=== PATIENT | female | born 1940 | race Caucasian/White ===

== ENCOUNTER → 2017-09-07 11:42 | Outpatient (CLI) | payer OTHER, SELFPAY ==
--- NOTE | 2017-09-07 | DI.MG.S_ITS ---
BILATERAL DIGITAL SCREENING MAMMOGRAM 3D/2D WITH CAD: 09/07/2017 CLINICAL: Routine screening. Comparison is made to exams dated: 12/30/2015 mammogram, 12/21/2014 mammogram - [facility], and 10/02/2013 mammogram - [facility]. There are scattered fibroglandular elements in both breasts. Current study was also evaluated with a Computer Aided Detection (CAD) system. No significant masses, calcifications, or other findings are seen in either breast. There has been no significant interval change. IMPRESSION: NEGATIVE There is no mammographic evidence of malignancy. A 1 year screening mammogram is recommended. This exam was interpreted at Station ID: [id number]. NOTE: For mammograms, a report in lay terms will be sent to the patient. Approximately 15% of breast malignancies will not be visualized mammographically. In the management of a palpable breast mass, a negative mammogram must not discourage biopsy of a clinically suspicious lesion. Electronically Signed By: Ernesto frank/cuauhtemoc:09/08/2017 09:11:23 letter sent: Normal Exam ACR BI-RADS Category 1: Negative 3341F
== END ==
PROVIDERS: PCP Family Medicine; Visit Provider Family Medicine
DX: Z12.31 Encounter for screening mammogram for malignant neoplasm of breast (principal)
CPT/HCPCS: 77063; 77067

== ENCOUNTER 2017-10-12 08:05 | Day surgery (SDC) | payer OTHER, SELFPAY ==
[2017-10-12] MEDS: PROPARACAINE 0.5% OPHTH SOL 2 DROPS EYE-OP (08:59)
[2017-10-12 09:01] VITALS: BMI 33.4
[2017-10-12] MEDS: CATARACT EYE COMPOUND (10 DROPS/SYRINGE) 3 DROPS EYE-OP (09:04)
[2017-10-12 09:15] VITALS: BP 174/78; PULSE 58; RESP 16; TEMP 36.7; O2SAT 95
--- NOTE | 2017-10-12 09:41 | P.OP.PRE_ITS ---
Pre-operative Note Interval Note Changes: No
--- NOTE | 2017-10-12 09:41 | PM.PREOP ---
Pre-operative Note Interval Note Changes: No
--- NOTE | 2017-10-12 09:42 | P.OP_ITS ---
Operative Date/Time/Diagnoses Pre-op diagnosis: Cataract Right eye Post-op diagnosis: same Procedure & Clinicians Procedure: Cataract Surgery Same procedure as scheduled: Yes Surgeon: Maurizio Wing Anesthesia Type: MAC +/- and Sedation Operative Notes Procedure in detail: Patient brought to the operating suite. Tetracaine drops placed in the right eye. Patient was prepped and draped in sterile manner. Wire lid speculum was placed in the eye. Betadine drops were placed on the eye. This was irrigated. Lidocaine jelly was placed on the eye. A paracentesis port was created with a side-port blade. 0.1 mL 1% preservative free lidocaine was injected into the anterior chamber. The anterior chamber was deepened with viscoelastic. 2.6 mm keratome was used to create a temporal clear corneal incision. Cystotome and Utrata forceps were used to create continuous tear capsulorrhexis. Balanced salt solution was used to hydro dissect the nucleus. The phacoemulsification handpiece was inserted and the nucleus was removed using the stop and chop technique. The irrigation aspiration handpiece was inserted and the remaining cortex was removed. Anterior chamber was deepened with viscoelastic. An Valdivia ZCB00 intraocular lens with a power of 29.5 was injected into the capsular bag. Irrigation aspiration handpiece was inserted and the remaining viscoelastic was removed. Incision was hydrated with balanced salt solution and found to be leak free with pressure with Weck- Angelica sponges. 0.1 mL Vigamox injected anterior chamber. 0.3 mL Kenalog 10 mg was injected subconjunctivally. Lid speculum was removed. The patient left the operating room in excellent condition. Complications: none Condition: stable Disposition: same day surgery
--- NOTE | 2017-10-12 09:44 | SUR.OPER ---
Supine on eye stretcher, head on extension cradle secured with tape. Arms tucked at sides with blanket. Pillow under knees.
[2017-10-12] MEDS: BALANCED SALT IRRIG SOLN NO.2 500 ML, EPINEPHrine 1 MG IRR (09:55)
[2017-10-12] MEDS: LIDOCAINE 1% 10 ML INJ INJ (09:55)
[2017-10-12] MEDS: TRIAMCINOLONE 50 MG/5 ML VIAL INJ (09:56)
[2017-10-12] MEDS: MOXIFLOXACIN OPHTH DROPS 3 ML BOTTLE 2 DROPS INJ (09:56)
[2017-10-12] MEDS: TETRACAINE 0.5% OPHTH DROPS 15 ML 2 DROPS EYE-RIGHT (09:56)
[2017-10-12] MEDS: LIDOCAINE JELLY 2% 5 ML 1 APPLIC TOP (09:56)
[2017-10-12] MEDS: CHONDROIDTIN/SOD HYALURONATE 1.05 ML SYRINGE INTRAOCULA (09:57)
[2017-10-12 10:12] VITALS: BP 141/63; PULSE 57; RESP 15; TEMP 36.5; O2SAT 97
== END 2017-10-12 10:27 | disposition home or self-care (01) ==
PROVIDERS: PCP Family Medicine; Visit Provider Ophthalmology
DX: H25.11 Age-related nuclear cataract, right eye (principal); I10 Essential (primary) hypertension; G47.33 Obstructive sleep apnea (adult) (pediatric)
CPT/HCPCS: J0171; J2250; J3010; J3301

== ENCOUNTER 2017-10-26 06:55 | Day surgery (SDC) | payer OTHER, SELFPAY ==
[2017-10-26] MEDS: PROPARACAINE 0.5% OPHTH SOL 2 DROPS EYE-OP (07:59)
[2017-10-26] MEDS: CATARACT EYE COMPOUND (10 DROPS/SYRINGE) 3 DROPS EYE-OP (08:00)
[2017-10-26 08:03] VITALS: BP 170/67; PULSE 57; RESP 18; TEMP 36.6; O2SAT 99; BMI 33.1
--- NOTE | 2017-10-26 09:02 | P.OP_ITS ---
Operative Date/Time/Diagnoses Pre-op diagnosis: Cataract Left eye Post-op diagnosis: same Procedure & Clinicians Surgeon: Maurizio Wing Anesthesia Type: MAC +/- and Sedation Operative Notes Procedure in detail: Patient brought to the operating suite. Tetracaine drops placed in the left eye. Patient was prepped and draped in sterile manner. Wire lid speculum was placed in the eye. Betadine drops were placed on the eye. This was irrigated. Lidocaine jelly was placed on the eye. A paracentesis port was created with a side-port blade. 0.1 mL 1% preservative free lidocaine was injected into the anterior chamber. The anterior chamber was deepened with viscoelastic. 2.6 mm keratome was used to create a temporal clear corneal incision. Cystotome and Utrata forceps were used to create continuous tear capsulorrhexis. Balanced salt solution was used to hydro dissect the nucleus. The phacoemulsification handpiece was inserted and the nucleus was removed using the stop and chop technique. The irrigation aspiration handpiece was inserted and the remaining cortex was removed. Anterior chamber was deepened with viscoelastic. An Valdivia ZCB00 intraocular lens with a power of 24.0 was injected into the capsular bag. Irrigation aspiration handpiece was inserted and the remaining viscoelastic was removed. Incision was hydrated with balanced salt solution and found to be leak free with pressure with Weck- Angelica sponges. 0.1 mL Vigamox injected anterior chamber. 0.3 mL Kenalog 10 mg was injected subconjunctivally. Lid speculum was removed. The patient left the operating room in excellent condition. Complications: none Condition: stable Disposition: same day surgery
--- NOTE | 2017-10-26 09:02 | P.OP.PRE_ITS ---
Pre-operative Note Interval Note Changes: No
--- NOTE | 2017-10-26 09:02 | PM.PREOP ---
Pre-operative Note Interval Note Changes: No
[2017-10-26] MEDS: CHONDROIDTIN/SOD HYALURONATE 1.05 ML SYRINGE INTRAOCULA (09:15)
[2017-10-26] MEDS: PHENYLEPHRINE/LIDOCAINE VIAL (OR) 0.2 ML EYE-OP (09:16)
[2017-10-26] MEDS: TRIAMCINOLONE 50 MG/5 ML VIAL INJ (09:16)
[2017-10-26] MEDS: TETRACAINE 0.5% OPHTH DROPS 15 ML 2 DROPS EYE-LEFT (09:16)
[2017-10-26] MEDS: MOXIFLOXACIN OPHTH DROPS 3 ML BOTTLE 2 DROPS INJ (09:16)
[2017-10-26] MEDS: LIDOCAINE JELLY 2% 5 ML 1 APPLIC TOP (09:16)
[2017-10-26] MEDS: BALANCED SALT IRRIG SOLN NO.2 500 ML, EPINEPHrine 1 MG IRR (09:17)
[2017-10-26 09:36] VITALS: BP 148/61; PULSE 59; RESP 15; TEMP 36.6; O2SAT 99
--- NOTE | 2017-10-26 09:46 | SUR.PHASEII ---
Assumed care as assigned, patient had been received post-op by another RN. Patient comfortable, tolerating fluids, family at chairside. IV dc'd, clothes given.
== END 2017-10-26 09:52 | disposition home or self-care (01) ==
PROVIDERS: PCP Family Medicine; Visit Provider Ophthalmology
DX: H25.12 Age-related nuclear cataract, left eye (principal); I10 Essential (primary) hypertension; G47.33 Obstructive sleep apnea (adult) (pediatric)
CPT/HCPCS: J0171; J2250; J3010; J3301

== ENCOUNTER → 2017-11-25 12:27 | Outpatient (CLI) | payer OTHER, SELFPAY ==
[2017-11-25 13:01] LABS: Appearance Urine UA CLEAR; Bilirubin Urine UA NEGATIVE (NEGATIVE); Color Urine UA YELLOW; Glucose Urine UA NEGATIVE (Normal); Ketones Urine UA NEGATIVE (NEGATIVE); Leukocyte Esterase Urine UA TRACE (NEGATIVE); Nitrite Urine UA Negative (Negative); Occult Blood Urine UA NEGATIVE (Negative); Protein Urine UA NEGATIVE (Negative); Urobilinogen Urine UA 0.2 E.U./dL (0.2)
[2017-11-25 13:06] LABS: RBC Urine None Seen (0-5/HPF)
[2017-11-25 13:12] LABS: Alanine Aminotransferase 31 IU/L (9-52); Albumin 4.7 g/dL (3.5-5.0); Albumin Globulin Ratio 1.4 (1.0-2.8); Alkaline Phosphatase 64 U/L (38-126); Aspartate Aminotransferase 27 IU/L (14-36); Bilirubin Total 0.8 mg/dL (0.2-1.3); Blood Urea Nitrogen 16 mg/dL (7-17); Carbon Dioxide 32 mmol/L (22-32); Chloride 100 mmol/L (98-107); Cholesterol 274 mg/dL (140-199); Estimated Glomerular Filt Rate > 60.0 mL/min (>60); Globulin 3.4 g/dL (1.7-4.1); Glucose 112 mg/dL (80-110); HDL Cholesterol 65 mg/dL (40-60); HEMOLYSIS < 15 (0-50); LDL Cholesterol Calculated 176 mg/dL (<100); Potassium 3.8 mmol/L (3.4-5.1); Sodium 144 mmol/L (137-145); Total Protein 8.1 g/dL (6.3-8.2); Triglycerides 163 mg/dL (35-150)
[2017-11-25 13:16] LABS: Bacteria Urine Moderate (10-30); Culture Indicated Urine Specimen Cultured; Squamous Epithelial Cell Urine 1-5 /HPF; Transitional Epi Cells Urine 0-1/HPF (0-5/HPF); WBC Urine 0-1/HPF (0-5/HPF)
[2017-11-25 13:43] LABS: Thyroid Stimulating Hormone 2.56 uIU/mL (0.47-4.68)
== END ==
PROVIDERS: PCP Family Medicine; Visit Provider Family Medicine
DX: E78.2 Mixed hyperlipidemia (principal); I10 Essential (primary) hypertension
CPT/HCPCS: 36415; 80053; 80061; 81003; 81015; 84443; 87086

== ENCOUNTER → 2018-06-01 09:44 | Outpatient (CLI) | payer OTHER, SELFPAY ==
[2018-06-01 11:37] LABS: Alanine Aminotransferase 43 IU/L (9-52); Albumin 4.7 g/dL (3.5-5.0); Albumin Globulin Ratio 1.5 (1.0-2.8); Alkaline Phosphatase 81 U/L (38-126); Aspartate Aminotransferase 40 IU/L (14-36); BUN Creatinine Ratio 21.3 (6-22); Bilirubin Total 0.6 mg/dL (0.2-1.3); Blood Urea Nitrogen 17 mg/dL (7-17); Calcium 9.8 mg/dL (8.4-10.2); Carbon Dioxide 28 mmol/L (22-32); Chloride 98 mmol/L (98-107); Cholesterol 266 mg/dL (140-199); Estimated Glomerular Filt Rate > 60.0 mL/min (>60); Globulin 3.1 g/dL (1.7-4.1); Glucose 115 mg/dL (80-110); HDL Cholesterol 53 mg/dL (40-60); HEMOLYSIS < 15 (0-50); LDL Cholesterol Calculated 177 mg/dL (<100); Sodium 137 mmol/L (137-145); Total Protein 7.8 g/dL (6.3-8.2); Triglycerides 182 mg/dL (35-150)
== END ==
PROVIDERS: PCP Family Medicine; Visit Provider Family Medicine
DX: E78.2 Mixed hyperlipidemia (principal); I10 Essential (primary) hypertension
CPT/HCPCS: 36415; 80053; 80061

== ENCOUNTER → 2018-06-06 16:16 | Outpatient (CLI) | payer OTHER, SELFPAY ==
--- NOTE | 2018-06-06 16:18 | DI.RAD.S_ITS ---
PROCEDURE: XR SHOULDER LT MIN 2V INDICATIONS: left shoulder pain TECHNIQUE: 3 views of the shoulder were acquired. COMPARISON: [facility], , SHOULDER MINIMUM 2VIEW RIGHT, 11/30/2014, 11:56. FINDINGS: Bones: No fractures or dislocations. No suspicious bony lesions. Visualized ribs appear intact. Soft tissues: No suspicious soft tissue calcifications. 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 Dictated by: Barry Ghosh M.D. on 06/06/2018 at 17:27 Approved by: Barry Gohsh M.D. on 06/06/2018 at 17:28
== END ==
PROVIDERS: PCP Family Medicine; Visit Provider Family Medicine
DX: M25.512 Pain in left shoulder (principal); M19.012 Primary osteoarthritis, left shoulder
CPT/HCPCS: 73030

== ENCOUNTER → 2018-09-22 11:58 | Outpatient (CLI) | payer OTHER, SELFPAY ==
--- NOTE | 2018-09-22 | DI.MG.S_ITS ---
BILATERAL DIGITAL SCREENING MAMMOGRAM 3D/2D WITH CAD: 09/22/2018 CLINICAL: Routine screening. Comparison is made to exams dated: 09/07/2017 mammogram, 12/30/2015 mammogram, and 12/21/2014 mammogram - [facility]. There are scattered fibroglandular elements in both breasts. Current study was also evaluated with a Computer Aided Detection (CAD) system. No significant masses, calcifications, or other findings are seen in either breast. There has been no significant interval change. IMPRESSION: NEGATIVE There is no mammographic evidence of malignancy. A 1 year screening mammogram is recommended. This exam was interpreted at Station ID: [id number]. NOTE: For mammograms, a report in lay terms will be sent to the patient. Approximately 15% of breast malignancies will not be visualized mammographically. In the management of a palpable breast mass, a negative mammogram must not discourage biopsy of a clinically suspicious lesion. Electronically Signed By: Marino fall/cuauhtemoc:09/22/2018 12:38:25 letter sent: Normal Exam ACR BI-RADS Category 1: Negative 3341F
== END ==
PROVIDERS: PCP Family Medicine; Visit Provider Family Medicine
DX: Z12.31 Encounter for screening mammogram for malignant neoplasm of breast (principal)
CPT/HCPCS: 77063; 77067

== ENCOUNTER → 2018-11-01 10:34 | Outpatient (CLI) | payer OTHER, SELFPAY ==
[2018-11-01 11:49] LABS: Add Manual Diff / Slide Review NO; Basophils Absolute Auto 0 /uL (0-100); Basophils Percent Auto 0.8 % (0-2); Eosinophils Absolute Auto 100 /uL (0-450); Eosinophils Percent Auto 1.2 % (2-4); Hematocrit 40.1 % (36-46); Lymphocytes Absolute Auto 1600 /uL (1100-4500); Lymphocytes Percent Auto 32.5 % (25-40); Mean Corpuscular HGB Conc 34.9 % (30-36); Mean Corpuscular Volume 88.8 fL (80-100); Monocytes Absolute Auto 500 /uL (0-900); Monocytes Percent Auto 10.3 % (3-14); Neutrophils Absolute Auto 2700 /uL (1500-7000); Neutrophils Percent Auto 55.2 % (50-75); Platelet Count 339 X10^3/uL (150-400); Red Blood Cell Count 4.52 X10^6/uL (4.0-5.2); Red Cell Distribution Width 12.5 % (11.6-14.8)
[2018-11-01 12:02] LABS: Alanine Aminotransferase 38 IU/L (9-52); Albumin 4.6 g/dL (3.5-5.0); Albumin Globulin Ratio 1.3 (1.0-2.8); Alkaline Phosphatase 80 U/L (38-126); Aspartate Aminotransferase 46 IU/L (14-36); BUN Creatinine Ratio 17.5 (6-22); Bilirubin Total 0.8 mg/dL (0.2-1.3); Blood Urea Nitrogen 14 mg/dL (7-17); Calcium 9.7 mg/dL (8.4-10.2); Carbon Dioxide 31 mmol/L (22-32); Chloride 96 mmol/L (98-107); Cholesterol 260 mg/dL (140-199); Estimated Glomerular Filt Rate > 60.0 mL/min (>60); Globulin 3.5 g/dL (1.7-4.1); Glucose 120 mg/dL (80-110); HDL Cholesterol 48 mg/dL (40-60); HEMOLYSIS < 15 (0-50); LDL Cholesterol Calculated 177 mg/dL (<100); Potassium 3.6 mmol/L (3.4-5.1); Sodium 138 mmol/L (137-145); Total Protein 8.1 g/dL (6.3-8.2); Triglycerides 177 mg/dL (35-150)
[2018-11-01 12:16] LABS: Microalbumi Creatinin Ratio Ur 6.2 ug/mg CR (<30); Microalbumin Urine Random < 0.6 mg/dL (0-1.6)
[2018-11-02 13:55] LABS: Hemoglobin A1C% w Est Avg Glu 5.8 % (4.0-6.0)
== END ==
PROVIDERS: PCP Family Medicine; Visit Provider Family Medicine
DX: E78.2 Mixed hyperlipidemia (principal); I10 Essential (primary) hypertension; M47.816 Spondylosis without myelopathy or radiculopathy, lumbar region; R13.10 Dysphagia, unspecified; Z13.1 Encounter for screening for diabetes mellitus
CPT/HCPCS: 36415; 80053; 80061; 82043; 82570; 83036; 85025

== ENCOUNTER → 2018-11-07 15:15 | Outpatient (CLI) | payer OTHER, SELFPAY ==
[2018-11-07 16:43] LABS: Hemoglobin A1C% w Est Avg Glu 5.7 % (4.0-6.0)
[2018-11-10 08:59] LABS: Hepatitis A Antibody IgM NONREACTIVE; Hepatitis Acute Panel Interp 0.03; Hepatitis B Core Antibody IgM NONREACTIVE; Hepatitis B Surface Antigen NONREACTIVE; Hepatitis C Antibody NONREACTIVE
== END ==
PROVIDERS: PCP Family Medicine; Visit Provider Family Medicine
DX: R74.8 Abnormal levels of other serum enzymes (principal); R73.9 Hyperglycemia, unspecified
CPT/HCPCS: 36415; 80074; 83036

== ENCOUNTER → 2018-11-10 12:15 | Outpatient (CLI) | payer OTHER, SELFPAY ==
--- NOTE | 2018-11-10 | DI.US.S_ITS ---
PROCEDURE: US ABDOMEN COMPLETE INDICATIONS: ELEVATED LIVER ENZYMES TECHNIQUE: Real-time scanning was performed of the abdominal and retroperitoneal organs, with image documentation. COMPARISON: [facility], CT, KIDNEY/ URETER/BLADDER, 09/22/2016, 19:53. FINDINGS: Liver: Liver is diffusely increased in echogenicity. No focal hepatic abnormalities identified. Normal hepatic size. Gallbladder: No gallstones identified. Normal gallbladder wall. No pericholecystic fluid. Negative sonographic Michael sign. Biliary ducts: Intrahepatic bile ducts are non-dilated. Extrahepatic bile duct caliber measures 4.0 mm. Normal is 6-7 mm or less in diameter, or 10 mm or less post-cholecystectomy. Pancreas: Visualized portions of the pancreas are sonographically normal. Spleen: Spleen is normal in size and homogeneous in echotexture. Kidneys: Kidneys are normal in size and echotexture. Right kidney measures a 9.5 cm long; left kidney measures 8.7 cm long. No hydronephrosis or nephrolithiasis. No solid masses. Aorta: Visualized aorta is normal in caliber at less than 3 cm. Iliacs: Proximal common iliac arteries are normal in caliber at less than 2.5 cm. IVC: Intrahepatic inferior vena cava is patent. Miscellaneous: No free abdominal fluid. IMPRESSION: Increased hepatic echogenicity noted possibly related to hepatic steatosis but other sources of hepatocellular disease cannot be excluded. Recommend clinical correlation. Dictated by: Jaguar OLIVEROS Interpreted: Eren Rodriguez MD on 11/10/2018 at 13:51 Approved by: Eren Rodriguez M.D. on 11/10/2018 at 17:30
== END ==
PROVIDERS: PCP Family Medicine; Visit Provider Family Medicine
DX: R74.8 Abnormal levels of other serum enzymes (principal)
CPT/HCPCS: 76700

== ENCOUNTER → 2018-12-20 12:39 | Outpatient (CLI) | payer OTHER, SELFPAY | PROVIDERS: PCP Family Medicine; Visit Provider Nurse Practitioner | DX: R30.0 Dysuria (principal) | CPT/HCPCS: 87077; 87086; 87186 ==

== ENCOUNTER → 2019-05-04 10:50 | Outpatient (CLI) | payer MEDICARE, SELFPAY ==
[2019-05-04 12:13] LABS: Add Manual Diff / Slide Review NO; Basophils Absolute Auto 0 /uL (0-100); Basophils Percent Auto 0.7 % (0-2); Eosinophils Absolute Auto 100 /uL (0-450); Eosinophils Percent Auto 1.7 % (2-4); Hematocrit 40.2 % (36-46); Hemoglobin 13.6 g/dL (12.0-16.0); Lymphocytes Absolute Auto 1500 /uL (1100-4500); Lymphocytes Percent Auto 26.3 % (25-40); Mean Corpuscular HGB Conc 33.9 % (30-36); Mean Corpuscular Hemoglobin 30.7 PG (26-34); Mean Corpuscular Volume 90.8 fL (80-100); Monocytes Absolute Auto 500 /uL (0-900); Monocytes Percent Auto 8.2 % (3-14); Neutrophils Absolute Auto 3700 /uL (1500-7000); Neutrophils Percent Auto 63.1 % (50-75); Platelet Count 337 X10^3/uL (150-400); Red Blood Cell Count 4.43 X10^6/uL (4.0-5.2); Red Cell Distribution Width 12.6 % (11.6-14.8); White Blood Cell Count 5.8 X10^3/uL (4.5-11.0)
[2019-05-04 12:14] LABS: Appearance Urine UA CLEAR; Bilirubin Urine UA NEGATIVE (NEGATIVE); Color Urine UA YELLOW; Glucose Urine UA NEGATIVE (Negative); Ketones Urine UA NEGATIVE (NEGATIVE); Leukocyte Esterase Urine UA TRACE (NEGATIVE); Nitrite Urine UA NEGATIVE (Negative); Occult Blood Urine UA NEGATIVE (Negative); Protein Urine UA NEGATIVE (Negative); Specific Gravity Urine UA 1.015 (1.000-1.035); Urobilinogen Urine UA 0.2 E.U./dL (0.2)
[2019-05-04 12:22] LABS: RBC Urine None Seen (0-5/HPF)
[2019-05-04 12:24] LABS: Hemoglobin A1C% w Est Avg Glu 5.6 % (4.0-6.0)
[2019-05-04 12:33] LABS: Bacteria Urine Few (2-10); Culture Indicated Urine Specimen Cultured; Squamous Epithelial Cell Urine 0-1 /HPF (0-5/HPF); WBC Urine 0-1/HPF (0-5/HPF)
[2019-05-04 13:11] LABS: Alanine Aminotransferase 16 IU/L (<35); Albumin 4.7 g/dL (3.5-5.0); Albumin Globulin Ratio 1.4 (1.0-2.8); Alkaline Phosphatase 81 U/L (38-126); Aspartate Aminotransferase 24 IU/L (14-36); BUN Creatinine Ratio 21.9 (6-22); Bilirubin Total 0.6 mg/dL (0.2-1.3); Blood Urea Nitrogen 16 mg/dL (7-17); Calcium 9.9 mg/dL (8.4-10.2); Carbon Dioxide 28 mmol/L (22-32); Chloride 101 mmol/L (98-107); Cholesterol 251 mg/dL (140-199); Estimated Glomerular Filt Rate > 60.0 mL/min (>60); Globulin 3.3 g/dL (1.7-4.1); Glucose 107 mg/dL (80-110); HDL Cholesterol 68 mg/dL (40-60); HEMOLYSIS < 15 (0-50); LDL Cholesterol Calculated 163 mg/dL (<100); Potassium 4.1 mmol/L (3.4-5.1); Sodium 139 mmol/L (137-145); Triglycerides 98 mg/dL (35-150)
[2019-05-04 13:45] LABS: Thyroid Stimulating Hormone 3.47 uIU/mL (0.47-4.68)
== END ==
PROVIDERS: PCP Family Medicine; Referring Provider Family Medicine; Visit Provider Family Medicine
DX: E66.9 Obesity, unspecified (principal); E78.2 Mixed hyperlipidemia; I10 Essential (primary) hypertension; R73.9 Hyperglycemia, unspecified
CPT/HCPCS: 36415; 80053; 80061; 81003; 81015; 83036; 84443; 85025; 87077; 87086

== ENCOUNTER → 2019-09-25 16:12 | Outpatient (CLI) | payer MEDICARE, SELFPAY ==
--- NOTE | 2019-09-25 | DI.MG.S_ITS ---
BILATERAL DIGITAL SCREENING MAMMOGRAM 3D/2D WITH CAD: 09/25/2019 CLINICAL: Routine screening. Comparison is made to exams dated: 09/22/2018 mammogram, 09/07/2017 mammogram, 12/30/2015 mammogram - [facility], and 10/02/2013 mammogram - [facility]. There are scattered fibroglandular elements in both breasts. Current study was also evaluated with a Computer Aided Detection (CAD) system. No significant masses, calcifications, or other findings are seen in either breast. There has been no significant interval change. IMPRESSION: NEGATIVE There is no mammographic evidence of malignancy. A 1 year screening mammogram is recommended. This exam was interpreted at Station ID: [id number]. NOTE: For mammograms, a report in lay terms will be sent to the patient. Approximately 15% of breast malignancies will not be visualized mammographically. In the management of a palpable breast mass, a negative mammogram must not discourage biopsy of a clinically suspicious lesion. Electronically Signed By: Marino fall/cuauhtemoc:09/25/2019 17:30:11 letter sent: Normal Exam ACR BI-RADS Category 1: Negative 3341F
== END ==
PROVIDERS: PCP Family Medicine; Referring Provider Family Medicine; Visit Provider Family Medicine
DX: Z12.31 Encounter for screening mammogram for malignant neoplasm of breast (principal)
CPT/HCPCS: 77063; 77067

== ENCOUNTER → 2019-10-16 16:17 | Outpatient (CLI) | payer MEDICARE, SELFPAY ==
--- NOTE | 2019-10-16 16:20 | DI.RAD.S_ITS ---
PROCEDURE: XR SINUS MIN 3V INDICATIONS: L frontal sinus pain TECHNIQUE: 3 views of the sinuses were acquired. COMPARISON: None. FINDINGS: Sinuses: The visualized sinuses demonstrate no air-fluid levels or mucosal thickening. The visualized mastoids also appear clear. Bones: No suspicious bony lesions. Nasal septum is midline. IMPRESSION: No trauma found. No air-fluid level or soft tissue thickening. Dictated by: Barry Ghosh M.D. on 10/16/2019 at 17:01 Approved by: Barry Ghosh M.D. on 10/16/2019 at 17:01
== END ==
PROVIDERS: PCP Family Medicine; Referring Provider Registered Nurse Diabetes Educator; Visit Provider Registered Nurse Diabetes Educator
DX: J34.89 Other specified disorders of nose and nasal sinuses (principal)
CPT/HCPCS: 70220

== ENCOUNTER → 2019-10-26 09:50 | Outpatient (CLI) | payer MEDICARE, SELFPAY ==
--- NOTE | 2019-10-26 09:51 | DI.US.S_ITS ---
PROCEDURE: US SOFT TISSUE HEAD AND NECK INDICATIONS: LEFT BROW LUMP TECHNIQUE: Real-time scanning was performed of the neck region of interest, with image documentation. COMPARISON: None. FINDINGS: In the area of the palpable abnormality, no sonographic mass or discrete fluid collection is seen. IMPRESSION: No discrete ultrasound correlate to the palpable abnormality. Recommend clinical management Dictated by: Eren Rodriguez M.D. on 10/26/2019 at 12:26 Approved by: Eren Rodriguez M.D. on 10/26/2019 at 12:28
== END ==
PROVIDERS: PCP Family Medicine; Referring Provider Registered Nurse Diabetes Educator; Visit Provider Registered Nurse Diabetes Educator
DX: R22.0 Localized swelling, mass and lump, head (principal)
CPT/HCPCS: 76536

== ENCOUNTER → 2019-11-22 09:53 | Outpatient (CLI) | payer MEDICARE, SELFPAY ==
[2019-11-22 11:04] LABS: Add Manual Diff / Slide Review NO; Basophils Absolute Auto 0 /uL (0-100); Basophils Percent Auto 0.6 % (0-2); Eosinophils Absolute Auto 100 /uL (0-450); Eosinophils Percent Auto 2.2 % (2-4); Hematocrit 39.4 % (36-46); Hemoglobin 13.7 g/dL (12.0-16.0); Lymphocytes Absolute Auto 1600 /uL (1100-4500); Lymphocytes Percent Auto 28.1 % (25-40); Mean Corpuscular HGB Conc 34.7 % (30-36); Mean Corpuscular Hemoglobin 31.2 PG (26-34); Monocytes Absolute Auto 600 /uL (0-900); Monocytes Percent Auto 9.7 % (3-14); Neutrophils Absolute Auto 3500 /uL (1500-7000); Neutrophils Percent Auto 59.4 % (50-75); Platelet Count 313 X10^3/uL (150-400); Red Blood Cell Count 4.37 X10^6/uL (4.0-5.2); Red Cell Distribution Width 12.3 % (11.6-14.8); White Blood Cell Count 5.8 X10^3/uL (4.5-11.0)
[2019-11-22 11:18] LABS: Alanine Aminotransferase 21 IU/L (<35); Albumin 4.5 g/dL (3.5-5.0); Albumin Globulin Ratio 1.3 (1.0-2.8); Alkaline Phosphatase 79 U/L (38-126); Aspartate Aminotransferase 26 IU/L (14-36); BUN Creatinine Ratio 23.1 (6-22); Bilirubin Total 0.7 mg/dL (0.2-1.3); Blood Urea Nitrogen 18 mg/dL (7-17); Calcium 9.6 mg/dL (8.4-10.2); Carbon Dioxide 32 mmol/L (22-32); Chloride 99 mmol/L (98-107); Cholesterol 264 mg/dL (140-199); Estimated Glomerular Filt Rate > 60.0 mL/min (>60); Globulin 3.6 g/dL (1.7-4.1); Glucose 114 mg/dL (80-110); HDL Cholesterol 57 mg/dL (40-60); HEMOLYSIS < 15 (0-50); LDL Cholesterol Calculated 174 mg/dL (<100); Potassium 4.1 mmol/L (3.4-5.1); Sodium 138 mmol/L (137-145); Total Protein 8.1 g/dL (6.3-8.2); Triglycerides 166 mg/dL (35-150)
[2019-11-22 11:58] LABS: Free T3, Triiodothyronine Free 4.05 pg/mL (2.77-5.27); Free T4, Direct Thyroxine 0.99 ng/dL (0.78-2.19)
[2019-11-22 12:12] LABS: Thyroid Stimulating Hormone 1.82 uIU/mL (0.47-4.68)
== END ==
PROVIDERS: PCP Family Medicine; Referring Provider Family Medicine; Visit Provider Family Medicine
DX: E78.2 Mixed hyperlipidemia (principal); I10 Essential (primary) hypertension; R73.9 Hyperglycemia, unspecified
CPT/HCPCS: 36415; 80053; 80061; 84439; 84443; 84481; 85025

== ENCOUNTER → 2020-05-23 09:47 | Outpatient (CLI) | payer MEDICARE, SELFPAY ==
[2020-05-23 10:20] LABS: Add Manual Diff / Slide Review NO; Basophils Absolute Auto 100 /uL (0-100); Basophils Percent Auto 0.8 % (0-2); Eosinophils Absolute Auto 100 /uL (0-450); Eosinophils Percent Auto 2.1 % (2-4); Hematocrit 40.5 % (36-46); Hemoglobin 13.8 g/dL (12.0-16.0); Lymphocytes Absolute Auto 1900 /uL (1100-4500); Lymphocytes Percent Auto 31.2 % (25-40); Mean Corpuscular HGB Conc 34.2 % (30-36); Mean Corpuscular Hemoglobin 31.2 PG (26-34); Mean Corpuscular Volume 91.4 fL (80-100); Monocytes Absolute Auto 500 /uL (0-900); Monocytes Percent Auto 9.1 % (3-14); Neutrophils Absolute Auto 3400 /uL (1500-7000); Neutrophils Percent Auto 56.8 % (50-75); Platelet Count 342 X10^3/uL (150-400); Red Blood Cell Count 4.43 X10^6/uL (4.0-5.2); Red Cell Distribution Width 12.9 % (11.6-14.8)
[2020-05-23 10:35] LABS: Alanine Aminotransferase 35 IU/L (<35); Albumin 4.5 g/dL (3.5-5.0); Albumin Globulin Ratio 1.3 (1.0-2.8); Alkaline Phosphatase 83 U/L (38-126); Aspartate Aminotransferase 44 IU/L (14-36); BUN Creatinine Ratio 14.7 (6-22); Bilirubin Total 0.6 mg/dL (0.2-1.3); Blood Urea Nitrogen 11 mg/dL (7-17); Calcium 9.7 mg/dL (8.4-10.2); Carbon Dioxide 29 mmol/L (22-32); Chloride 100 mmol/L (98-107); Cholesterol 247 mg/dL (140-199); Estimated Glomerular Filt Rate > 60.0 mL/min (>60); Globulin 3.6 g/dL (1.7-4.1); Glucose 122 mg/dL (80-110); HDL Cholesterol 59 mg/dL (40-60); HEMOLYSIS < 15 (0-50); LDL Cholesterol Calculated 163 mg/dL (<100); Potassium 3.9 mmol/L (3.4-5.1); Sodium 137 mmol/L (137-145); Total Protein 8.1 g/dL (6.3-8.2); Triglycerides 123 mg/dL (35-150)
[2020-05-23 11:07] LABS: Free T3, Triiodothyronine Free 3.13 pg/mL (2.77-5.27); Free T4, Direct Thyroxine 1.12 ng/dL (0.78-2.19)
[2020-05-23 11:21] LABS: Thyroid Stimulating Hormone 1.22 uIU/mL (0.47-4.68)
== END ==
PROVIDERS: PCP Family Medicine; Referring Provider Family Medicine; Visit Provider Family Medicine
DX: E78.2 Mixed hyperlipidemia (principal); I10 Essential (primary) hypertension; R73.9 Hyperglycemia, unspecified; G47.19 Other hypersomnia
CPT/HCPCS: 36415; 80053; 80061; 84439; 84443; 84481; 85025

== ENCOUNTER → 2020-11-11 13:51 | Outpatient (CLI) | payer MEDICARE, SELFPAY ==
--- NOTE | 2020-11-11 13:53 | DI.RAD.S_ITS ---
PROCEDURE: XR LUMBAR SPINE 2-3V INDICATIONS: NECK AND BACK PAIN TECHNIQUE: 3 views of the lumbar spine were acquired. COMPARISON: None. FINDINGS: Bones: No acute fracture. Mild levo scoliosis. Multilevel degenerative endplate sclerosis and spurring. Diffuse facet arthropathy. Moderate narrowing of the L2-L3 disc space. Mild narrowing of the L3-L4 and L4-L5 disc spaces. Grade 1 anterolisthesis of L3 on L4 and L4 on L5. Soft tissues: Overlying bowel gas pattern is normal. No suspicious soft tissue calcifications. IMPRESSION: Mild levoscoliosis of the lumbar spine. Diffuse spondylosis and facet arthropathy. Multilevel spondylolisthesis as above. Dictated by: Eren Rodriguez M.D. on 11/11/2020 at 15:28 Approved by: Eren Rodriguez M.D. on 11/11/2020 at 15:30
--- NOTE | 2020-11-11 13:53 | DI.RAD.S_ITS ---
PROCEDURE: XR THORACIC SPINE 2V INDICATIONS: NECK AND BACK PAIN TECHNIQUE: 2 nviews of the thoracic spine were acquired. COMPARISON: None. FINDINGS: Exaggerated thoracic kyphosis. No listhesis. Vertebral body heights maintained. No suspicious lytic or blastic osseous lesion. Mild multilevel degenerative changes. IMPRESSION: No acute finding. Exaggerated thoracic kyphosis. Dictated by: Guy Yousif M.D. on 11/11/2020 at 14:39 Approved by: Guy Yousif M.D. on 11/11/2020 at 14:41
--- NOTE | 2020-11-11 13:53 | DI.RAD.S_ITS ---
PROCEDURE: XR CERVICAL SPINE 2V OR 3V INDICATIONS: NECK AND BACK PAIN TECHNIQUE: 3 view(s) of the cervical spine were acquired. COMPARISON: None. FINDINGS: Bones: No fractures or dislocations to the T1 level. The lateral masses of C1 appear intact on the odontoid view. No suspicious bony lesions. Hypertrophic facet joints noted in the mid cervical spine. Soft tissues: No prevertebral soft tissue swelling. IMPRESSION: Degenerative changes without fracture or malalignment Dictated by: Yasmani Tilley M.D. on 11/11/2020 at 16:05 Approved by: Yasmani Tilley M.D. on 11/11/2020 at 16:07
== END ==
PROVIDERS: PCP Family Medicine; Referring Provider Chiropractor; Visit Provider Chiropractor
DX: M54.9 Dorsalgia, unspecified (principal); M54.2 Cervicalgia; M47.812 Spondylosis without myelopathy or radiculopathy, cervical region; M40.204 Unspecified kyphosis, thoracic region; M47.816 Spondylosis without myelopathy or radiculopathy, lumbar region; M43.16 Spondylolisthesis, lumbar region; M41.86 Other forms of scoliosis, lumbar region
CPT/HCPCS: 72040; 72070; 72100

== ENCOUNTER → 2020-11-18 14:58 | Outpatient (CLI) | payer MEDICARE, SELFPAY ==
--- NOTE | 2020-11-18 | DI.MG.S_ITS ---
BILATERAL DIGITAL SCREENING MAMMOGRAM 3D/2D WITH CAD: 11/18/2020 CLINICAL: Routine screening. Routine screening. Comparison is made to exams dated: 09/25/2019 mammogram, 09/22/2018 mammogram, and 09/07/2017 mammogram - [facility]. There are scattered fibroglandular elements in both breasts. Current study was also evaluated with a Computer Aided Detection (CAD) system. No significant masses, calcifications, or other findings are seen in either breast. There has been no significant interval change. IMPRESSION: NEGATIVE There is no mammographic evidence of malignancy. A 1 year screening mammogram is recommended. This exam was interpreted at Station ID: [id number]. NOTE: For mammograms, a report in lay terms will be sent to the patient. Approximately 15% of breast malignancies will not be visualized mammographically. In the management of a palpable breast mass, a negative mammogram must not discourage biopsy of a clinically suspicious lesion. Electronically Signed By: Marino fall/cuauhtemoc:11/19/2020 07:45:28 letter sent: Normal Exam ACR BI-RADS Category 1: Negative 3341F
== END ==
PROVIDERS: PCP Family Medicine; Referring Provider Family Medicine; Visit Provider Family Medicine
DX: Z12.31 Encounter for screening mammogram for malignant neoplasm of breast (principal)
CPT/HCPCS: 77063; 77067

== ENCOUNTER → 2020-12-02 10:24 | Outpatient (CLI) | payer MEDICARE, SELFPAY ==
[2020-12-02 11:48] LABS: Add Manual Diff / Slide Review NO; Basophils Absolute Auto 0 /uL (0-100); Basophils Percent Auto 0.6 % (0-2); Eosinophils Absolute Auto 100 /uL (0-450); Eosinophils Percent Auto 2.3 % (2-4); Hematocrit 37.9 % (36-46); Hemoglobin 12.9 g/dL (12.0-16.0); Lymphocytes Absolute Auto 1600 /uL (1100-4500); Mean Corpuscular HGB Conc 34.1 % (30-36); Mean Corpuscular Hemoglobin 31.1 PG (26-34); Monocytes Absolute Auto 500 /uL (0-900); Monocytes Percent Auto 10.3 % (3-14); Neutrophils Absolute Auto 2800 /uL (1500-7000); Neutrophils Percent Auto 55.8 % (50-75); Platelet Count 274 X10^3/uL (150-400); Red Blood Cell Count 4.16 X10^6/uL (4.0-5.2); Red Cell Distribution Width 12.7 % (11.6-14.8); White Blood Cell Count 5.1 X10^3/uL (4.5-11.0)
[2020-12-02 11:59] LABS: Hemoglobin A1C% w Est Avg Glu 5.8 % (4.0-6.0)
[2020-12-02 12:10] LABS: Alanine Aminotransferase 22 IU/L (<35); Albumin 4.4 g/dL (3.5-5.0); Albumin Globulin Ratio 1.4 (1.0-2.8); Alkaline Phosphatase 61 U/L (38-126); Aspartate Aminotransferase 30 IU/L (14-36); BUN Creatinine Ratio 18.2 (6-22); Bilirubin Total 0.7 mg/dL (0.2-1.3); Blood Urea Nitrogen 14 mg/dL (7-17); Calcium 9.5 mg/dL (8.4-10.2); Carbon Dioxide 29 mmol/L (22-32); Chloride 95 mmol/L (98-107); Cholesterol 246 mg/dL (140-199); Estimated Glomerular Filt Rate > 60.0 mL/min (>60); Globulin 3.2 g/dL (1.7-4.1); Glucose 110 mg/dL (80-110); HDL Cholesterol 58 mg/dL (40-60); HEMOLYSIS < 15 (0-50); LDL Cholesterol Calculated 158 mg/dL (<100); Potassium 3.8 mmol/L (3.4-5.1); Sodium 132 mmol/L (137-145); Total Protein 7.6 g/dL (6.3-8.2); Triglycerides 151 mg/dL (35-150)
== END ==
PROVIDERS: PCP Family Medicine; Referring Provider Family Medicine; Visit Provider Family Medicine
DX: E78.2 Mixed hyperlipidemia (principal); R73.9 Hyperglycemia, unspecified; E66.9 Obesity, unspecified; I10 Essential (primary) hypertension
CPT/HCPCS: 36415; 80053; 80061; 83036; 85025

== ENCOUNTER → 2021-01-03 11:10 | Outpatient (CLI) | payer MEDICARE, SELFPAY ==
[2021-01-03 14:31] LABS: Appearance Urine UA CLEAR; Bilirubin Urine UA NEGATIVE (NEGATIVE); Color Urine UA YELLOW; Glucose Urine UA NEGATIVE (Negative); Ketones Urine UA NEGATIVE (NEGATIVE); Leukocyte Esterase Urine UA TRACE (NEGATIVE); Nitrite Urine UA NEGATIVE (Negative); Occult Blood Urine UA NEGATIVE (Negative); Protein Urine UA NEGATIVE (Negative); Specific Gravity Urine UA <=1.005 (1.000-1.035); Urobilinogen Urine UA 0.2 E.U./dL (0.2)
[2021-01-03 14:32] LABS: pH Urine UA 6.5 (4.5-8.0)
[2021-01-03 14:44] LABS: Bacteria Urine None Seen; RBC Urine None Seen (0-5/HPF); WBC Urine 0-1/HPF (0-5/HPF)
== END ==
PROVIDERS: PCP Family Medicine; Referring Provider Family Medicine; Visit Provider Family Medicine
DX: R35.0 Frequency of micturition (principal); R30.0 Dysuria
CPT/HCPCS: 81001; 87086

== ENCOUNTER → 2021-04-01 15:48 | Outpatient (CLI) | payer MEDICARE, SELFPAY ==
--- NOTE | 2021-04-01 15:49 | DI.MRI.S_ITS ---
PROCEDURE: MR SHOULDER LT WO CON INDICATIONS: PAIN LEFT SHOULDER/CERTAIN MOVEMENT LEFT BICEPS TECHNIQUE: Noncontrast oblique coronal T2 fast spin echo with fat saturation, oblique sagittal T1 spin echo and T2 fast spin echo with fat saturation, axial T1 spin echo and T2 fast spin echo with fat saturation through the shoulder. COMPARISON: None. FINDINGS: Image quality: Excellent. Rotator cuff: There is tendinosis and low-grade articular and bursal surface partial thickness tear involving distal supraspinatus at its insertion on the humeral head is standing to musculotendinous junction. Distal infraspinatus and subscapularis tendinosis is seen. No full-thickness rotator cuff tendon rupture. Sagittal images demonstrate mild to moderate supraspinatus muscle atrophy. Bones and bursae: No bone marrow contusions or fractures. Mild to moderate acromioclavicular joint osteoarthritic changes are seen with downward osteophyte formation depressing on musculotendinous junction of supraspinatus. Moderate to severe glenohumeral joint osteoarthritic changes also noted with significant joint space narrowing, subchondral sclerosis and prominent inferior marginal osteophyte formation. Small amount of joint fluid and subacromial subdeltoid bursal fluid is seen. Capsule and soft tissues: Extensive signal abnormality throughout labrum is seen suggestive of extensive labral tear. The long head of the biceps tendinosis is noted. The rotator interval appears normal, without fibrosis. The coracohumeral ligament is normal in thickness. IMPRESSION: 1. Moderate to severe glenohumeral joint osteoarthritis and mild to moderate acromioclavicular joint osteoarthritis. No fracture or dislocation. 2. Tendinosis and low-grade articular and bursal surface partial thickness tear involving distal supraspinatus extending to musculotendinous junction. Distal infraspinatus and subscapularis tendinosis. No full-thickness rotator cuff tendon rupture. Mild to moderate supraspinatus muscle atrophy. 3. Suggestion of extensive left shoulder labral tear with global signal abnormality and contour irregularity. 4. Tendinosis involving proximal intra-articular portion of long head of biceps. Dictated by: Kyle Adams M.D. on 04/02/2021 at 8:19 Approved by: Kyle Adams M.D. on 04/02/2021 at 8:26
== END ==
PROVIDERS: PCP Family Medicine; Referring Provider Family Medicine; Visit Provider Family Medicine
DX: M19.012 Primary osteoarthritis, left shoulder (principal); M75.112 Incomplete rotator cuff tear or rupture of left shoulder, not specified as traumatic; M25.512 Pain in left shoulder; G89.29 Other chronic pain
CPT/HCPCS: 73221

== ENCOUNTER → 2021-05-22 10:17 | Outpatient (CLI) | payer MEDICARE, SELFPAY | PROVIDERS: PCP Family Medicine; Visit Provider Physician Assistant | DX: R30.0 Dysuria (principal) | CPT/HCPCS: 87077; 87086; 87186 ==

== ENCOUNTER → 2021-07-24 09:26 | Outpatient (CLI) | payer MEDICARE, SELFPAY ==
[2021-07-24 09:53] LABS: Add Manual Diff / Slide Review NO; Basophils Absolute Auto 100 /uL (0-100); Basophils Percent Auto 1.2 % (0-2); Eosinophils Absolute Auto 200 /uL (0-450); Eosinophils Percent Auto 3.6 % (2-4); Hematocrit 36.8 % (36-46); Hemoglobin 12.5 g/dL (12.0-16.0); Lymphocytes Absolute Auto 1500 /uL (1100-4500); Lymphocytes Percent Auto 27.2 % (25-40); Mean Corpuscular Hemoglobin 30.5 PG (26-34); Mean Corpuscular Volume 89.6 fL (80-100); Monocytes Absolute Auto 500 /uL (0-900); Monocytes Percent Auto 8.8 % (3-14); Neutrophils Absolute Auto 3300 /uL (1500-7000); Neutrophils Percent Auto 59.2 % (50-75); Platelet Count 342 X10^3/uL (150-400); Red Cell Distribution Width 13.1 % (11.6-14.8); White Blood Cell Count 5.5 X10^3/uL (4.5-11.0)
[2021-07-24 10:29] LABS: Hemoglobin A1C% w Est Avg Glu 5.9 % (4.0-6.0)
[2021-07-24 11:10] LABS: Alanine Aminotransferase 18 IU/L (<35); Albumin 4.4 g/dL (3.5-5.0); Albumin Globulin Ratio 1.4 (1.0-2.8); Alkaline Phosphatase 63 U/L (38-126); Aspartate Aminotransferase 28 IU/L (14-36); BUN Creatinine Ratio 17.1 (6-22); Bilirubin Total 0.5 mg/dL (0.2-1.3); Blood Urea Nitrogen 19 mg/dL (7-17); Calcium 9.4 mg/dL (8.4-10.2); Carbon Dioxide 29 mmol/L (22-32); Chloride 102 mmol/L (98-107); Cholesterol 225 mg/dL (140-199); Estimated Glomerular Filt Rate 51 mL/min (>60); Globulin 3.2 g/dL (1.7-4.1); Glucose 117 mg/dL (80-110); HDL Cholesterol 75 mg/dL (40-60); HEMOLYSIS < 15 (0-50); LDL Cholesterol Calculated 129 mg/dL (<100); Potassium 4.2 mmol/L (3.4-5.1); Sodium 137 mmol/L (137-145); Total Protein 7.6 g/dL (6.3-8.2); Triglycerides 106 mg/dL (35-150)
== END ==
PROVIDERS: PCP Family Medicine; Referring Provider Family Medicine; Visit Provider Family Medicine
DX: E66.9 Obesity, unspecified (principal); E78.2 Mixed hyperlipidemia; G47.33 Obstructive sleep apnea (adult) (pediatric); I10 Essential (primary) hypertension; R74.8 Abnormal levels of other serum enzymes
CPT/HCPCS: 36415; 80053; 80061; 83036; 85025

== ENCOUNTER → 2021-08-20 08:13 | Outpatient (CLI) | payer MEDICARE, SELFPAY ==
--- NOTE | 2021-08-20 08:14 | DI.CT.S_ITS ---
PROCEDURE: CT UE LT WO CON INDICATIONS: LEFT SHOULDER ARTHRITIS. PAIN TECHNIQUE: Noncontrast 1-1.5 mm thick sections acquired from the acromioclavicular joint to the inferior scapula, with coronal and sagittal reformatting. COMPARISON: None. FINDINGS: Image quality: Excellent. Bones: Moderate to severe glenohumeral joint osteoarthritic changes are seen with near complete loss of joint space, extensive subchondral sclerosis and cyst formation and prominent inferior marginal osteophyte formation. Mild to moderate osteoarthritic changes are seen in acromioclavicular joint. No fracture or dislocation. No suspicious bony lesion. Visualized left upper ribs are intact. Soft tissues: [id number] supraspinatus muscle atrophy is seen on sagittal images. There is no full-thickness rotator cuff tendon rupture. No abnormal soft tissue calcifications or significant joint effusion. No axillary lymphadenopathy is seen. Visualized left lung field is clear. IMPRESSION: 1. Moderate to severe glenohumeral joint osteoarthritis. Mild to moderate acromioclavicular joint osteoarthritis. No shoulder fracture or dislocation. No suspicious intraosseous lesion. 2. No full-thickness rotator cuff tendon rupture. No abnormal soft tissue calcifications. Mild to moderate supraspinatus muscle atrophy. No significant joint effusion. Dictated by: Kyle Adams M.D. on 08/20/2021 at 12:51 Approved by: Kyle Adams M.D. on 08/20/2021 at 14:14
== END ==
PROVIDERS: PCP Family Medicine; Referring Provider Orthopaedic Surgery; Visit Provider Orthopaedic Surgery
DX: M19.012 Primary osteoarthritis, left shoulder (principal); M62.512 Muscle wasting and atrophy, not elsewhere classified, left shoulder
CPT/HCPCS: 73200

== ENCOUNTER → 2021-09-16 11:07 | Outpatient (CLI) | payer MEDICARE, SELFPAY ==
[2021-09-16 11:34] LABS: Add Manual Diff / Slide Review NO; Basophils Absolute Auto 0 /uL (0-100); Eosinophils Absolute Auto 100 /uL (0-450); Eosinophils Percent Auto 1.9 % (2-4); Hemoglobin 12.4 g/dL (12.0-16.0); Lymphocytes Absolute Auto 1100 /uL (1100-4500); Lymphocytes Percent Auto 22.6 % (25-40); Mean Corpuscular HGB Conc 34.4 % (30-36); Mean Corpuscular Hemoglobin 30.7 PG (26-34); Mean Corpuscular Volume 89.2 fL (80-100); Monocytes Absolute Auto 500 /uL (0-900); Monocytes Percent Auto 10.1 % (3-14); Neutrophils Absolute Auto 3100 /uL (1500-7000); Neutrophils Percent Auto 64.4 % (50-75); Platelet Count 338 X10^3/uL (150-400); Red Blood Cell Count 4.03 X10^6/uL (4.0-5.2); Red Cell Distribution Width 13.5 % (11.6-14.8); White Blood Cell Count 4.8 X10^3/uL (4.5-11.0)
[2021-09-16 11:45] LABS: Appearance Urine UA CLEAR; Bilirubin Urine UA NEGATIVE (NEGATIVE); Color Urine UA YELLOW; Glucose Urine UA NEGATIVE (Negative); Ketones Urine UA NEGATIVE (NEGATIVE); Leukocyte Esterase Urine UA TRACE (NEGATIVE); Nitrite Urine UA NEGATIVE (Negative); Occult Blood Urine UA NEGATIVE (Negative); Protein Urine UA NEGATIVE (Negative); Specific Gravity Urine UA 1.015 (1.000-1.035); Urobilinogen Urine UA 0.2 E.U./dL (0.2)
[2021-09-16 11:47] LABS: BUN Creatinine Ratio 16.1 (6-22); Blood Urea Nitrogen 19 mg/dL (7-17); Calcium 9.3 mg/dL (8.4-10.2); Carbon Dioxide 27 mmol/L (22-32); Chloride 100 mmol/L (98-107); Estimated Glomerular Filt Rate 47 mL/min (>60); Glucose 140 mg/dL (80-110); HEMOLYSIS < 15 (0-50); Potassium 3.7 mmol/L (3.4-5.1); Sodium 134 mmol/L (137-145)
[2021-09-16 12:21] LABS: Bacteria Urine None Seen; Culture Indicated Urine Specimen Cultured; RBC Urine 0-1/HPF (0-5/HPF); Squamous Epithelial Cell Urine 0-1 /HPF (0-5/HPF); Transitional Epi Cells Urine 0-1/HPF (0-5/HPF); WBC Urine 1-5/HPF (0-5/HPF)
[2021-09-16 15:35] LABS: Cholesterol 203 mg/dL (140-199); HDL Cholesterol 64 mg/dL (40-60); LDL Cholesterol Calculated 123 mg/dL (<100); Triglycerides 82 mg/dL (35-150)
== END ==
PROVIDERS: PCP Family Medicine; Referring Provider Orthopaedic Surgery; Visit Provider Orthopaedic Surgery
DX: Z01.818 Encounter for other preprocedural examination (principal); E78.2 Mixed hyperlipidemia; N39.0 Urinary tract infection, site not specified; Z01.812 Encounter for preprocedural laboratory examination
CPT/HCPCS: 36415; 80048; 80061; 81001; 85025; 87086; 93005

== ENCOUNTER 2021-09-22 17:19 | Emergency (ER) | payer MEDICARE, SELFPAY ==
[2021-09-22 17:31] VITALS: BP 186/78; PULSE 54; RESP 16; TEMP 36.5; O2SAT 98; BMI 31.8
--- NOTE | 2021-09-22 17:35 | PC.NURSE ---
No pain to left rib palpation or bruising. Pain with twisting of torso.
--- NOTE | 2021-09-22 18:58 | ED_ITS ---
HPI - Fall <Sudhir ValdezBREONNA - Last Filed: 09/22/21 20:08> General Chief Complaint: Fall Stated Complaint: FALL HIT HEAD LEFT SIDE RIB AND SHOULDER PAIN Time Seen by Provider: 09/22/21 18:56 Source: patient Mode of arrival: Ambulatory History of Present Illness HPI Narrative: 80-year-old female, nonsmoker, presents emergency department with complaints of left shoulder and rib pain after a ground level fall earlier today. Patient denies being on any blood thinners. Patient states that she tripped on a uneven walkway and fell on her left shoulder and hit her head. Patient is scheduled to have a shoulder replacement in a few weeks. Patient denies any loss of consciousness, immediate vomiting or mental status changes. Patient endorses left-sided rib pain #4-5 with no obvious bruising or deformity. Patient is scheduled to go to [place] for a wedding and wants to make sure she is not going to pass out during the ceremony. Related Data Home Medications Medication Instructions Recorded Confirmed aspirin 81 mg tablet,delayed 81 mg PO DAILY 10/12/17 05/21/21 release ResMed AirSense 10 CPAP #1 ea 04/28/18 05/21/21 niacin 500 mg tablet 500 mg PO BID 11/07/18 05/21/21 Previous Rx's Medication Instructions Recorded triamcinolone acetonide 0.1 % 1 applictn topical DAILY #30 grams 11/29/17 topical cream cetirizine 10 mg capsule 10 mg PO DAILY #30 caps 01/03/18 ciclopirox 8 % topical solution 1 applic topical BEDTIME 4 weeks 08/30/20 #6.6 mL tramadol 50 mg tablet 50 mg PO Q6H PRN pain #20 tabs 12/02/20 alprazolam 0.5 mg tablet 0.5 mg PO ONCE PRN Claustrophobia 03/29/21 #2 tabs fluticasone propionate 50 2 spray intranasal BID PRN nasal 04/02/21 mcg/actuation nasal congestion #32 grams spray,suspension triamcinolone acetonide 0.5 % 1 applic topical DAILY #15 grams 04/04/21 topical cream albuterol sulfate 90 mcg/actuation 2 puff inhalation Q6H PRN 05/21/21 aerosol inhaler shortness of breath or wheezing #8.5 grams meclizine 25 mg tablet See Rx Instructions .Route 04/11/22 .COMPLEX #90 tabs fenofibrate 54 mg tablet See Rx Instructions .Route 06/06/21 .COMPLEX #90 tabs omeprazole 20 mg capsule,delayed See Rx Instructions .Route 07/11/21 release .COMPLEX #90 caps propranolol 60 mg capsule,24 See Rx Instructions .Route 07/30/21 hr,extended release .COMPLEX #90 caps hydrochlorothiazide 25 mg tablet See Rx Instructions .Route 08/22/21 .COMPLEX #90 tabs Allergies Allergy/AdvReac Type Severity Reaction Status Date / Time morphine [MORPHINE] Allergy Severe SWELLING Verified 05/21/21 17:31 simvastatin [SIMVASTATIN] Allergy Intermediate hives, Verified 05/21/21 17:31 itchiness, swelling, nausea atorvastatin [ATORVASTATIN] Allergy Unknown Joint Pain Verified 05/21/21 17:31 ezetimibe [From ZETIA] Allergy Unknown Verified 05/21/21 17:31 Review of Systems <BREONNA Love - Last Filed: 09/22/21 20:08> Review of Systems Narrative: Narrative: GENERAL: Denies chills, fatigue, fever, sweats. See HPI HEENT: Denies sinus pain, ear pain, sore throat, difficulty swallowing, dizziness. Endorses Neck stiffness after hitting her head. Minimal swelling left forehead with no signs abrasion or bruising. RESPIRATORY: Denies dyspnea, cough, wheezing, sputum. CARDIOVASCULAR: Denies chest pain, palpitations, edema. GASTROINTESTINAL: Denies nausea, vomiting, abdominal pain, diarrhea, constipation. : Denies dysuria, frequency, incontinence, hematuria, urinary retention, flank pain. MSK: Denies weakness, joint pain, or bony pain. Endorses left shoulder and rib pain. SKIN: Denies rash, skin lesions, or pruritis. NEUROLOGIC: Denies weakness, dizziness, headache, numbness, confusion. PSYCHIATRIC: No concerning psychosocial issues. Patient History <BREONNA Love - Last Filed: 09/22/21 20:08> Medical History Arthritis Bilateral arm pain Bilateral shoulder pain Body posture problem Cervical somatic dysfunction Dry eyes Essential tremor Excessive daytime sleepiness Finger pain, left Frontal sinus pain GERD (gastroesophageal reflux disease) Hemorrhoids Hyperlipidemia Hypertension Left shoulder pain Low back pain (~10/2016) Lumbar region somatic dysfunction Medicare annual wellness visit, subsequent Migraines Obesity (BMI 30-39.9) Obstructive sleep apnea of adult Onychomycosis Osteopenia (~2009) Patient has active physician orders for life-sustaining treatment (POLST) form Pelvic somatic dysfunction Rash and nonspecific skin eruption Sacral region somatic dysfunction Sleep apnea Thoracic region somatic dysfunction Toe pain, left Upper extremity somatic dysfunction Vertigo Surgical History History of knee replacement History of total abdominal hysterectomy and bilateral salpingo-oophorectomy Hx of hemorrhoidectomy Hx of hernia repair Hx of vaginal surgery Family History Mother Cancer Father No problems noted. Social History marital status: details: naz Winston, lives in [place] household members: spouse lives independently: Yes caregiver/support person: No housing: house Smoking Status: Never smoker Smoking Status: Never smoker alcohol intake frequency: 0-2 drinks per day Substance Use Type: does not use Exam <BREONNA Love - Last Filed: 09/22/21 20:08> Narrative Exam Narrative: Exam Narrative: GENERAL: This is a well-nourished, well-developed patient, in no acute distress HEAD: Normocephalic. Minimal swelling left forehead where she hit but no signs bruising or abrasion. No Darling signs. EYES: Pupils equal round and reactive. Extraocular motions intact. No scleral icterus, injection or drainage. No raccoon eyes. ENT: Nose without bleeding, purulent drainage. Throat without erythema, tonsillar hypertrophy or exudate. Airway patent. NECK: Trachea midline. No JVD or lymphadenopathy. Nontender. No C-spine tenderness. CARDIOVASCULAR: Regular rate and rhythm without murmurs, peripheral pulses intact, cap refill <2 sec. RESPIRATORY: Breath sounds equal and clear bilaterally. No wheezes, rales, or rhonchi. No cough. No increased respiratory effort. No accessory muscle use. GASTROINTESTINAL: Abdomen soft, non-tender, nondistended without guarding or rebound. No suprapubic pain. MSK: Moves all extremities. Normal range of motion, no clubbing or edema. Neurovascularly intact. Left lateral rib pain with palpation and AP squeeze test. NEURO: A&O x 3. SKIN: Warm, dry, no rashes or lesions noted. Initial Vital Signs Initial Vital Signs: Vital Signs Temperature 97.7 F 09/22/21 17:31 Pulse Rate 54 L 09/22/21 17:31 Respiratory Rate 16 09/22/21 17:31 Blood Pressure 186/78 H 09/22/21 17:31 Pulse Oximetry 98 09/22/21 17:31 Oxygen Delivery Method 09/22/21 17:31 Reviewed Extrem Other: SHOULDER: There is no bruising, swelling or asymmetry. There is no new tenderness to palpation over the AC joint, coracoid or glenoid processes. There is no soft tissue tenderness to palpation. Sensation grossly intact. Passive and Active Range of motion is limited due to previous injury and pain. Resistive strength intact. Range of motion of the elbow is normal. The contralateral shoulder exam is unremarkable. <Abhinav Fernando MD - Last Filed: 09/23/21 06:11> Initial Vital Signs Initial Vital Signs: Vital Signs Temperature 97.7 F 09/22/21 17:31 Pulse Rate 54 L 09/22/21 17:31 Respiratory Rate 16 09/22/21 17:31 Blood Pressure 186/78 H 09/22/21 17:31 Pulse Oximetry 98 09/22/21 17:31 Oxygen Delivery Method 09/22/21 17:31 Course <BREONNA Love - Last Filed: 09/22/21 20:08> Orders Ordered: ED Orders 09/22/21 19:18 CT head/brain wo con Stat 09/22/21 19:19 XR ribs LT min 3V w CXR1V Stat Vital Signs Vital signs: Vital Signs - 8 hr 09/22/21 17:31 Temperature 97.7 F Pulse Rate 54 L Respiratory Rate 16 Blood Pressure 186/78 H Pulse Oximetry 98 Oxygen Delivery Method Room Air <Abhinav Fernando MD - Last Filed: 09/23/21 06:11> Orders Ordered: ED Orders 09/22/21 19:18 CT head/brain wo con Stat 09/22/21 19:19 XR ribs LT min 3V w CXR1V Stat Vital Signs Vital signs: Vital Signs - 8 hr 09/22/21 17:31 Temperature 97.7 F Pulse Rate 54 L Respiratory Rate 16 Blood Pressure 186/78 H Pulse Oximetry 98 Oxygen Delivery Method Room Air MDM - Fall <BREONNA Love - Last Filed: 09/22/21 20:08> Differential Diagnosis Differential diagnosis: Likely other (Head injury, rib contusion) Imaging Data CT scan - head: Radiologist's Impression: [address] [address] [address] Scan Report Signed Patient: Jenifer De La Cruz MR#: [id number] : 1940 Acct:[id number] Age/Sex: 80 / F Date of Service: 09/22/21 Loc: ED Accession Number: [id number] ?? Procedure: CT head/brain wo con Ordering Provider: Sudhir Valdez PROCEDURE:? CT HEAD/BRAIN WO CON ? INDICATIONS:? Head trauma ? TECHNIQUE:? Noncontrast 4.5 mm thick angled axial sections acquired from the foramen magnum to the vertex, with coronal and sagittal reformats.? For radiation dose reduction, the following was used:? automated exposure control, adjustment of mA and/or kV according to patient size.? ? COMPARISON:? None. ? FINDINGS:? Image quality:? Excellent.? ? CSF spaces:? Basal cisterns are patent.? No extra-axial fluid collections.? The ventricles are symmetric in size and shape.? ? Brain:? No intracranial bleeds or masses.? There is cerebral volume loss for age, with resultant ventricular and sulcal prominence.? There are periventricular and deep white matter chronic small vessel ischemic changes.? There is intracranial internal carotid artery atherosclerosis.? ? Skull and face:? Calvarium and visualized facial bones appear intact, without suspicious lesions.? ? Sinuses:? Visualized sinuses and mastoids are clear.? ? IMPRESSION:? No acute intracranial finding. ? ? Dictated by: Guy Yousif M.D. on 09/22/2021 at 19:51 ? ? Approved by: Guy Yousif M.D. on 09/22/2021 at 19:53 ? Extremity x-ray #1: Radiologist's Impression: [address] [address] XRay Report Signed Patient: Jenifer De La Cruz MR#: [id number] : 1940 Acct:[id number] Age/Sex: 80 / F Date of Service: 09/22/21 Loc: ED Accession Number: [id number] ?? Procedure: XR ribs LT min 3V w CXR1V Ordering Provider: Sudhir Valdez PROCEDURE:? XR RIBS LT MIN 3V W CXR1V ? INDICATIONS:? ground level fall - fall on left side ? TECHNIQUE:? 2 views of the left ribs were acquired, along with a single view chest.? ? COMPARISON:? None. ? FINDINGS:? ? Surgical changes and devices:? None.? ? Bones and chest wall:? No fractures or dislocations.? No suspicious bony lesions.? Overlying soft tissues appear unremarkable.? ? Lungs and pleura:? No pleural effusions or pneumothorax.? Lungs appear clear.? ? Mediastinum:? Mediastinal contours appear normal.? Heart size is normal.? ? IMPRESSION:? No plain radiographic evidence of rib fracture. ? ? Dictated by: Guy Yousif M.D. on 09/22/2021 at 19:50 ? ? Approved by: Guy Yousif M.D. on 09/22/2021 at 19:51 ? MDM Narrative Medical decision making narrative: 80-year-old female that presents to the emergency department with left shoulder and rib pain secondary to ground level fall earlier today. Head CT and rib x- rays were negative. Will discharge patient home with instructions for home care. Discussed return precautions and plan of care with patient and , who were agreeable with course of action. Discharge Plan Departure Patient Disposition: Home Clinical Impression: Chronic left shoulder pain, Rib pain on left side Instructions: How to Prevent Falls Activity Restrictions/Additional Instructions: *You have been diagnosed with left shoulder and rib pain. Your x-rays and head CT were all negative. Please be watchful when walking to ensure you do not fall. You may use [id number] medication as needed for discomfort. If at any point you develop worsening symptoms that include intolerable pain, mental status changes, vision changes, etc. please follow-up with your family doctor or feel free to return to the emergency department. *What to do: *Please continue to take your regular medications as directed. [ ] New medication prescriptions sent to your pharmacy: [ ] [ ] New medication written as a paper prescription [x ] No new medications given *Please follow up with your primary care provider in 2-3 days, call for an appointment. Let them know you were seen in the Emergency Department and that we ask that you be seen in follow up. We will electronically transmit a record of today's note if your PCP is in our system *If you do not have a primary care provider please contact the [facility] Resource line at [phone]. They will ask some questions about your medical history and help get you set up with a doctor in the community. ? Return to ER if you should have any new, worsening or concerning symptoms, such as worsening pain, severe headache, confusion, chest pain, difficulty breathing, fever greater than 101 F, shaking chills, persistent vomiting to the point that you cannot drink fluids, or other new or worsening symptoms. Prescriptions: No Action triamcinolone acetonide 0.1 % cream 1 applictn TOP DAILY Qty: 30 0RF tramadol 50 mg tablet 50 mg PO Q6H PRN (Reason: pain) Qty: 20 0RF albuterol sulfate 90 mcg/actuation HFA aerosol inhaler 2 puff inhalation Q6H PRN (Reason: shortness of breath or wheezing) Qty: 8.5 0RF cetirizine 10 mg capsule 10 mg PO DAILY Qty: 30 0RF ciclopirox 8 % solution 1 applic topical BEDTIME 28 Days Qty: 6.6 8RF alprazolam 0.5 mg tablet 0.5 mg PO ONCE PRN (Reason: Claustrophobia) Qty: 2 0RF fluticasone propionate 50 mcg/actuation spray,suspension 2 spray intranasal BID PRN (Reason: nasal congestion) Qty: 32 3RF meclizine 25 mg tablet See Rx Instructions .ROUTE .COMPLEX Qty: 90 3RF Dose Instruction: TAKE ONE TABLET BY MOUTH ONE TIME DAILY Rx Instructions: TAKE ONE TABLET BY MOUTH ONE TIME DAILY fenofibrate 54 mg tablet See Rx Instructions .ROUTE .COMPLEX Qty: 90 0RF Dose Instruction: TAKE ONE TABLET BY MOUTH ONE TIME DAILY Rx Instructions: TAKE ONE TABLET BY MOUTH ONE TIME DAILY omeprazole 20 mg capsule,delayed release(DR/EC) See Rx Instructions .ROUTE .COMPLEX Qty: 90 0RF Dose Instruction: TAKE ONE CAPSULE BY MOUTH ONE TIME DAILY Rx Instructions: TAKE ONE CAPSULE BY MOUTH ONE TIME DAILY propranolol 60 mg capsule,extended release 24 hr See Rx Instructions .ROUTE .COMPLEX Qty: 90 0RF Dose Instruction: TAKE ONE CAPSULE BY MOUTH ONE TIME DAILY Rx Instructions: TAKE ONE CAPSULE BY MOUTH ONE TIME DAILY hydrochlorothiazide 25 mg tablet See Rx Instructions .ROUTE .COMPLEX Qty: 90 3RF Dose Instruction: TAKE ONE TABLET BY MOUTH ONE TIME DAILY Rx Instructions: TAKE ONE TABLET BY MOUTH ONE TIME DAILY niacin 500 mg tablet 500 mg PO BID triamcinolone acetonide 0.5 % cream 1 applic topical DAILY Qty: 15 1RF aspirin 81 mg Tablet,Delayed Release (Dr/Ec) 81 mg PO DAILY (DME) ResMed AirSense 10 CPAP Qty: 1 Dose Instruction: As directed Label Comments: Pressure: 11-18 cmH2O DME: [facility] Rx Instructions: As directed Referrals: Adi Kellogg DO [Primary Care Provider] - Visit Report Forms: Patient Portal/API <Abhinav Fernando MD - Last Filed: 09/23/21 06:11> Cosign ED Attending Cosignature Attestation: I was immediately available in the department for consultation. ?This documentation has been reviewed and I agree with assessment and plan. Supervised by Abhinav Fernando MD
--- NOTE | 2021-09-22 19:18 | DI.CT.S_ITS ---
PROCEDURE: CT HEAD/BRAIN WO CON INDICATIONS: Head trauma TECHNIQUE: Noncontrast 4.5 mm thick angled axial sections acquired from the foramen magnum to the vertex, with coronal and sagittal reformats. For radiation dose reduction, the following was used: automated exposure control, adjustment of mA and/or kV according to patient size. COMPARISON: None. FINDINGS: Image quality: Excellent. CSF spaces: Basal cisterns are patent. No extra-axial fluid collections. The ventricles are symmetric in size and shape. Brain: No intracranial bleeds or masses. There is cerebral volume loss for age, with resultant ventricular and sulcal prominence. There are periventricular and deep white matter chronic small vessel ischemic changes. There is intracranial internal carotid artery atherosclerosis. Skull and face: Calvarium and visualized facial bones appear intact, without suspicious lesions. Sinuses: Visualized sinuses and mastoids are clear. IMPRESSION: No acute intracranial finding. Dictated by: Guy Yousif M.D. on 09/22/2021 at 19:51 Approved by: Guy Yousif M.D. on 09/22/2021 at 19:53
--- NOTE | 2021-09-22 19:19 | DI.RAD.S_ITS ---
PROCEDURE: XR RIBS LT MIN 3V W CXR1V INDICATIONS: ground level fall - fall on left side TECHNIQUE: 2 views of the left ribs were acquired, along with a single view chest. COMPARISON: None. FINDINGS: Surgical changes and devices: None. Bones and chest wall: No fractures or dislocations. No suspicious bony lesions. Overlying soft tissues appear unremarkable. Lungs and pleura: No pleural effusions or pneumothorax. Lungs appear clear. Mediastinum: Mediastinal contours appear normal. Heart size is normal. IMPRESSION: No plain radiographic evidence of rib fracture. Dictated by: Guy Yousif M.D. on 09/22/2021 at 19:50 Approved by: Guy Yousif M.D. on 09/22/2021 at 19:51
[2021-09-22 20:12] VITALS: BP 172/74; PULSE 53; RESP 16; O2SAT 98
== END 2021-09-22 20:13 | disposition home or self-care (01) ==
PROVIDERS: Emergency Provider Registered Nurse; PCP Family Medicine
DX: M25.512 Pain in left shoulder (principal); R07.81 Pleurodynia; W18.30XA Fall on same level, unspecified, initial encounter
CPT/HCPCS: 70450; 71101; 99281; 99283

== ENCOUNTER → 2021-10-21 12:17 | Outpatient (CLI) | payer MEDICARE, SELFPAY ==
[2021-10-21 13:22] LABS: COVID19 -Nasal RAPID Negative (Negative)
== END ==
PROVIDERS: PCP Family Medicine; Referring Provider Orthopaedic Surgery; Visit Provider Orthopaedic Surgery
DX: Z20.822 Contact with and (suspected) exposure to COVID-19 (principal)
CPT/HCPCS: 87635; C9803

== ENCOUNTER 2021-10-23 06:10 | Day surgery (SDC) | payer MEDICARE, SELFPAY ==
[2021-10-13 13:51] VITALS: BMI 31.4
[2021-10-23] VITALS (10 sets, daily range): BP systolic 134–180; BP diastolic 56–88; PULSE 54–88; RESP 15–20; TEMP 35.6–36.8; O2SAT 93–100; BMI 31.4; BMI 32.1
[2021-10-23] MEDS: LACTATED RINGERS 1,000 ML 42 ML IV ×2 (07:30→10:09)
--- NOTE | 2021-10-23 07:30 | PM.PREOP ---
Pre-operative Note Interval Note History & Physical reviewed/Exam performed by Physician: Yes Changes to H&P: No
[2021-10-23] MEDS: ACETAMINOPHEN 325 MG TABLET 975 MG PO (07:34)
[2021-10-23] MEDS: PREGABALIN 75 MG CAPSULE PO (07:35)
[2021-10-23] MEDS: CELECOXIB 200 MG CAPSULE PO (07:35)
[2021-10-23] MEDS: VANCOMYCIN 1,000 MG/200 ML PIGGYBACK 200 MG IV ×2 (07:35→20:05)
--- NOTE | 2021-10-23 08:00 | DI.RAD.S_ITS ---
PROCEDURE: XR SHOULDER LT MIN 2V INDICATIONS: prosthesis placement TECHNIQUE: 2 views of the shoulder were acquired. COMPARISON: [facility], CR, XR SHOULDER LT MIN 2V, 06/06/2018, 16:23. FINDINGS: Surgical changes reflecting left shoulder arthroplasty are present. Hardware is intact. There is good anatomic alignment. IMPRESSION: Postoperative left arthroplasty change. Dictated by: Susanne Webber M.D. on 10/23/2021 at 17:10 Approved by: Susanne Webber M.D. on 10/23/2021 at 17:10
[2021-10-23] MEDS: GENTAMICIN 200 MG in SODIUM CHLORIDE 0.9% 100 ML 105 MG IV (08:02)
[2021-10-23] MEDS: MIDAZOLAM 2 MG/2 ML VIAL 1 MG IV (08:05)
[2021-10-23] MEDS: fentaNYL 100 MCG/2 ML INJ 50 MCG IV (08:31)
--- NOTE | 2021-10-23 08:32 | SUR.PREOP ---
Block start time [0800 .saftey pause 0810 Monitoring initiated and maintained throughout procedure. Oxygen and medications given per anesthesiologist instructions. Patient remained stable throughout procedure, no adverse reactions noted. Block end [id number].
[2021-10-23] MEDS: LIDOCAINE 1% 20 ML INJ (09:00)
--- NOTE | 2021-10-23 09:09 | SUR.OPER ---
Beach chair with Skytron bed/shoulder positioner. Lower body on padded OR bed. Head in foam padded head cradle, secured with straps. Non-operative arm secured <90 degrees abduction. Pillow under knees. Safety belt at thigh. Cloth tape over blanket over lower legs.
--- NOTE | 2021-10-23 10:36 | P.OP_ITS ---
Operative Date/Time/Diagnoses Date of procedure: 10/23/21 Time of procedure: 09:00 Pre-op diagnosis: Left shoulder arthritis Post-op diagnosis: same Procedure & Clinicians Procedure: Left total shoulder arthroplasty Same procedure as scheduled: Yes Indications: Left end-stage shoulder arthritis Surgeon: Christopher Ramirez Online Services Manager: Maria Esther Whitehead Anesthesia Type: General and Peripheral nerve block Operative Notes Findings: End-stage arthritic changes to the glenohumeral joint with a large osteophytes around the humeral head and neck. No sign of any significant rotator cuff tears. No sign of any high-riding humeral head. Closure Type: primary Applied: implant(s) (Medium cage screw, medium glenoid, 45 mm trunnion, 45 x 17 humeral head the) Estimated Blood Loss (mL): 50 Procedure in detail: On date of service, Patient was met in the holding area. The operative site was signed and witnessed by the OR staff. The surgeries once again discussed with the patient and any remaining questions they had were answered fully. Patient was taken back to the operating theater and placed on the operating table in a supine position. Great care was taken to ensure that all bony prominences were properly padded. Patient was then placed into the beach chair position. The head and neck were properly positioned and secured. A timeout was performed verifying patient's name, procedure, and the operative site. The upper extremity was then prepped and draped in the normal sterile fashion. Previously, the bony anatomy and incision were marked out as well as injected with Marcaine with epinephrine. A deltopectoral approach was performed. 10 blade was used to incise the skin and fascial tissue. A deep knife was used to continue sharp dissection until the cephalic vein was visualized. The cephalic vein was dissected free allowing us to expose the deltopectoral interval. This interval was then developed. A Eduardo elevator was used to free up the deltoid of any scarring both superficially as well as deeply. The vein and the deltoid were taken laterally while the pectoralis was taken medially. This gave us good visualization of the strap muscles. The clavipectoral fascia was removed and the strap muscles were then retracted medially with the pectoralis. This gave us stabilization of the subscapularis. The circumflex vessels were ligated and the subscapularis was sharply excised off the lesser tuberosity and then tagged. Once the subscapularis was released we're able to dislocate the shoulder. Patient had end-stage arthritic changes to the humeral head as well as the glenoid with large osteophytes anterior inferiorly as well as posteriorly. A Ronger was then used to remove the osteophytes. See findings above for descriptions of the humeral head and glenoid. Next, cutting guide was placed and a saw was used to remove the humeral head. Once the head was removed it was templated. A 45mm head gave us the best coverage. The trunnion and impactor were placed. Guidewire was used to measure the length of the cage screw. Medium cage screw provided the best overall length and fit. Next, protector for the osteotomy was placed and we turned our attention to the glenoid. The subscapularis was freed up and a 360? fashion. The degenerative anterior and inferior capsular tissue was removed. This was followed by removing the degenerative labral tissue from around the glenoid as well as the biceps insertion. Retractors were used to protect the axillary nerve while we remove the degenerative capsular and labral tissue. This gave us good visualization of the glenoid. Glenoid trials were used until we found the appropriate fit and curvature. A large glenoid provided the best fit. The center hole was drilled followed by reaming of the glenoid. The wound was copiously irrigated after reaming. Next the pegs were drilled and a trial glenoid was impacted into place. Once we were satisfied with the preparation of the glenoid, the final component was cemented into place. This was followed by impaction. We Return to our attention back to the humerus. The protector plate was removed and heads were trialed once again until we found the appropriate fit. Final trunnion was impacted in placed followed by the medium cage screw which was packed with bone graft. Different head trials were tried and the 45 x 17 provided the best fit. So the a clips 45 x 17 humeral head was impacted onto the trunnion and the shoulders was reduced and taken through range of motion. bone tunnels were made into the humeral neck. #2 FiberWire were passed through the bone tunnels for eventual subscapularis repair. It was taken through range of motion and was felt to be stable in both posterior translation as well as external and internal rotation with abduction. The subscapularis was repaired back to the lesser tuberosity through the bone tu nnels. This was then reinforced with soft tissue repair. Part of the rotator interval was then closed. A drain was placed and the rest of the wound was closed in a layered fashion. The shoulder was then cleaned dried and dressed and the patient was taken to the PACU in stable condition. Patient will follow our postoperative protocol for total shoulder arthroplasty. Complications: none Post-operative Condition: stable Disposition: PACU Plan for aftercare: patient will be admitted overnight. Patient can be discharged home tomorrow.
[2021-10-23] MEDS: LACTATED RINGERS 1,000 ML 125 ML IV ×2 (11:54→20:07)
--- NOTE | 2021-10-23 16:00 | PT.IIE ---
Current Diagnoses Primary osteoarthritis, left shoulder (10/23/21) Incomplete rotator cuff tear or rupture of left shoulder, not specified as traumatic (10/23/21) Surgery Performed Operation Date: 10/23/21 07:45 Actual Procedures p Total Shoulder Arthroplasty(Left) - Christopher Ramirez MD Surgical History (Last Reviewed 09/22/21 @ 19:34 by Sudhir Valdez MONOTYPIST) History of knee replacement History of total abdominal hysterectomy and bilateral salpingo-oophorectomy Hx of hemorrhoidectomy Hx of hernia repair Hx of vaginal surgery Medical History (Last Updated 10/13/21 @ 14:16 by Madison Segura RN) Arthritis Bilateral arm pain Bilateral shoulder pain Body posture problem Cervical somatic dysfunction COVID-19 virus infection (~05/2021) COVID-19 virus infection (~07/29/21) Dry eyes Essential tremor Excessive daytime sleepiness Finger pain, left Frontal sinus pain GERD (gastroesophageal reflux disease) Hemorrhoids Hyperlipidemia Hypertension Left shoulder pain Low back pain (~10/2016) Lumbar region somatic dysfunction Medicare annual wellness visit, subsequent Migraines Obesity (BMI 30-39.9) Obstructive sleep apnea of adult Onychomycosis Osteopenia (~2008) Patient has active physician orders for life-sustaining treatment (POLST) form Pelvic somatic dysfunction Prolonged QT interval Rash and nonspecific skin eruption Sacral region somatic dysfunction Sleep apnea Thoracic region somatic dysfunction Toe pain, left Upper extremity somatic dysfunction Vertigo Physical Therapy Inpatient Evaluation/Re-Eval M1 PT/OT-IP Prior Functional Status Start: 10/23/21 15:24 Freq: NEEDED Status: Active Protocol: Document 10/23/21 16:07 [facility] (Rec: 10/23/21 17:59 [facility] [id number]) Medical Review Prior Functional Status Medical History Reviewed Yes Diet/Fluid Consistency Regular Communication WNL Mobility and Gait notes sometimes when she is sedentary for a long time, she gets a little imbalanced.She reprots history of vestibular issues. typically amb w/o AD. notes a couple falls this past month Activities of Daily Living and IADL's indep Social History Household Members spouse Living Arrangements House M2 PT-IP Current Condition Start: 10/23/21 15:24 Freq: NEEDED Status: Active Protocol: Document 10/23/21 16:07 [facility] (Rec: 10/23/21 17:59 [facility] [id number]) Physical Therapy Current Condition Current Condition Evaluation Date 10/23/21 Treatment Diagnosis L TSA M3 PT-IP Subjective Start: 10/23/21 15:24 Freq: NEEDED Status: Active Protocol: Document 10/23/21 16:07 [facility] (Rec: 10/23/21 17:59 [facility] [id number]) Subjective Physical Therapy Visit Type Type Initial Evaluation Visit Start Time 15:22 Visit Stop Time 16:00 Total Visit Minutes 38 Number of HYDROELECTRIC MACHINERY MECHANIC HELPER Visits 0 M4 PT-IP Mobility and Gait Start: 10/23/21 15:24 Freq: NEEDED Status: Active Protocol: Document 10/23/21 16:07 [facility] (Rec: 10/23/21 17:59 [facility] [id number]) PT-Bed Mobility Assessment Sit to Supine Sit to Supine Contact Guard Assistance,Head of Bed Elevated,Bedrails Scooting Scooting to Edge of Bed Standby Assistance Scooting Up and Down in Bed Standby Assistance PT-Transfer Assessment Sit to and From Stand Sit to and from Stand Standby Assistance,Use of Upper Extremities Equipment Transfer Assistive Device Gait Belt,Straight Cane Orthotic/Prosthetic Devices or Brace: Yes Transfers Transfer Destination Bed Transfer Technique Stand Step Pivot Transfer Ability Level of Assist Contact Guard Assistance Comments Mobility Comments Pt was standing from commode w / upon PT arrival. PT helped finished transfer and pt was able to transfer CGA. Pt was gotten a cane and did sit to stand from bed SBA w/ SPC then amb in room back and forth about 80ft. Pt then did sit to supine CGA w/use of rails and HOB elevated. Pt left with call light in reacha nd bed alarm on. Gait Assessment Gait Gait Assistance Required: Standby Assistance Distance (Feet) 80 Able to Maintain Weight Bearing Status Yes During Gait Assistive Devices Assistive Device Gait Belt,Straight Cane Orthotic/Prosthetic Devices or Brace: Yes Gait Deviations General Gait Pattern Decreased Feet Clearance Factors Limiting Gait Function Factors Limiting Gait Function Decreased Strength,Poor Balance Stair Climbing Assessment Comments Stair Climbing Comments n/t PT-Balance Assessment Sitting Balance and Reactions Static Sitting Balance Ability Normal Dynamic Sitting Balance Ability Normal Standing Balance and Reactions Static Standing Balance Ability Good Dynamic Standing Balance Ability Good Device Used cane M5 PT-IP Objective Assessments Start: 10/23/21 15:24 Freq: NEEDED Status: Active Protocol: Document 10/23/21 16:07 [facility] (Rec: 10/23/21 17:59 [facility] [id number]) Orientation Orientation/Cognition Level of Alertness Alert Language Function Ability No Deficits Noted Safety Awareness Understands Safety Issues Memory Description No Deficits Noted Gross Range of Motion Upper Extremity ROM Assessment Left Impaired Strength Upper Extremity Strength Assessment Left Impaired Lower Extremity Strength Assessment Within Functional Limits M6 PT-IP Treatment Start: 10/23/21 15:24 Freq: NEEDED Status: Active Protocol: Document 10/23/21 16:07 [facility] (Rec: 10/23/21 17:59 [facility] [id number]) Physical Therapy Treatment Education Education Provided Precautions,Weight Bearing Status,Safety Brace Education [place],Patient, Caregiver M7 PT-IP Assessment and Plan Start: 10/23/21 15:24 Freq: NEEDED Status: Active Protocol: Document 10/23/21 16:07 [facility] (Rec: 10/23/21 17:59 [facility] [id number]) PT Summary Assessment and Plan Potential Rehabilitation Potential Good Status of Condition at Evaluation Evolving Summary Impairments Pain,ROM,Strength,Balance,Bed Mobility,Transfers,Gait Assessment Summary Pt presents day of surgery of L TSA with overall good pain control. She reported some feeling of imbalance which is typical for her when she is less active. She did well with SPC and was encouraged to use her cane when at home. She has a very supportive who was present during sessiona nd ready to help her as needed. Pt would bneefit from skilled PT prior to going home for training on safety and mobility. Goals Bed Mobility Goal Independent Transfer Goal Independent Gait Goal Independent Gait Distance 150ft Other Goals up/down 3 steps w/L rail SBA Days to Meet Goals 3 Frequency of Treatment Frequency Of Treatment Twice a Day Treatment Plan Physical Therapy Treatment Plan Bed Mobility Training,Transfer Training,Gait Training, Therapeutic Exercise,Balance Retraining,Neuromuscular Re-ed ,Manual Therapy Other Recommendations and Next Treatment do stairs, bed mobilityw /o Focus rail, instruct TSA exercises, edu re: ADLs Precautions Shoulder Precautions Sling,PROM,Internal Rotation to Body,No External Rotation, No Abduction,Forward Flexion to 90 degrees,Pendulums Weight Bearing Status Weight Bearing Status Non-Weight Bearing Allowed Weight Bearing Amount (enter % LUE or #) (%) Recommendations To Nursing Amount of Assist Needed Standby Assistance Discharge Recommendations PT Discharge Recommendations Home with Assistance, Outpatient PT Transportation Needs at Discharge Private Vehicle
[2021-10-23] MEDS: MAGNESIUM HYDROXIDE 30 ML UDC PO (20:05)
[2021-10-23] MEDS: OXYCODONE IR 10 MG TABLET PO (20:05)
[2021-10-23] MEDS: DOCUSATE 100 MG CAPSULE PO (20:05)
[2021-10-24] VITALS: BP 167/89; PULSE 88; RESP 21; TEMP 36.4; O2SAT 99
[2021-10-24] MEDS: LACTATED RINGERS 1,000 ML 125 ML IV (03:27)
[2021-10-24 04:00] VITALS: BP 142/52; PULSE 64; RESP 17; TEMP 36.3; O2SAT 100
[2021-10-24 08:14] VITALS: BP 146/59; PULSE 59; RESP 18; TEMP 36.4; O2SAT 100
[2021-10-24 08:24] LABS: Hematocrit 29.5 % (36-46); Mean Corpuscular Hemoglobin 30.7 PG (26-34); Mean Corpuscular Volume 90.5 fL (80-100); Platelet Count 276 X10^3/uL (150-400); Red Blood Cell Count 3.27 X10^6/uL (4.0-5.2); Red Cell Distribution Width 13.2 % (11.6-14.8); White Blood Cell Count 12.5 X10^3/uL (4.5-11.0)
[2021-10-24] MEDS: OXYCODONE IR 10 MG TABLET PO ×2 (08:59→12:02)
[2021-10-24] MEDS: ASPIRIN EC 81 MG TABLET PO (09:00)
[2021-10-24] MEDS: diphenhydrAMINE 25 MG TABLET PO (09:00)
[2021-10-24] MEDS: DOCUSATE 100 MG CAPSULE PO (09:00)
[2021-10-24] MEDS: NIACIN 500 MG TABLET PO (09:01)
[2021-10-24] MEDS: PROPRANOLOL ER 60 MG CAPSULE PO (09:01)
[2021-10-24] MEDS: MECLIZINE HCL 12.5 MG TABLET 25 MG PO (09:06)
--- NOTE | 2021-10-24 09:34 | P.DS_ITS ---
History of Present Illness History of Present Illness Date Patient Seen: 10/24/21 Time Patient Seen: 09:35 Chief complaint: LEFT TOTAL SHOULDER ARTHROPLASTY Narrative: Patient is complaining of 5/10 left shoulder pain. She is using oral pain medications which are helping with her pain. She notes the numbness and tingling in her left upper extremity is resolving after her block yesterday. She denies any fevers, chills, night sweats. Overall she is feeling well and would like to be discharged home today. Her is at bedside. Discharge Providers Provider Discharge Date: 10/24/21 Primary care physician: Stuart Kellogg DO Consults: 10/23/21 07:33 Consult to Respiratory Therapy Evaluate & Treat Comment: Physician Instructions: Evaluate and treat 10/23/21 10:27 Consult to Discharge Planning Routine Comment: Consult to Physical Therapy Evaluate & Treat Comment: Physician Instructions: Evaluate and Treat Consult to Respiratory Therapy Evaluate & Treat Comment: Physician Instructions: Evaluate and treat Discharge provider: Roberta Cho PA-C Summary Hospital Course Hospital Course: Operative Date/Time/Diagnoses Date of procedure: 10/23/21 Time of procedure: 09:00 Procedure & Clinicians Procedure: Left total shoulder arthroplasty Same procedure as scheduled: Yes Indications: Left end-stage shoulder arthritis Surgeon: Christopher Ramirez Supervisor [employer]: Maria Esther Whitehead Anesthesia Type: General and Peripheral nerve block Operative Notes Findings: End-stage arthritic changes to the glenohumeral joint with a large osteophytes around the humeral head and neck.? No sign of any significant rotator cuff tears.? No sign of any high-riding humeral head. Closure Type: primary Applied: implant(s) (Medium cage screw, medium glenoid, 45 mm trunnion, 45 x 17 humeral head the) Estimated Blood Loss (mL): 50 Status at Discharge Cognitive/behavioral status at discharge: at baseline, oriented Functional status at discharge: independent ambulation Overall status at discharge: patient is progressing back to baseline Exam Vital Signs (past 8 hours): - 10/24/21 04:00 10/24/21 08:14 Temperature 97.4 F L 97.6 F Pulse Rate 64 59 L Respiratory Rate 17 18 Blood Pressure 142/52 H 146/59 H Pulse Oximetry 100 100 Oxygen Flow Rate 0 Oxygen Delivery Method Room Air Oxygen Flow Rate 0 Narrative Exam Narrative: Pleasant 81-year-old female, resting comfortably in bed, no acute distress. Her is at bedside. Dressing is clean, dry, intact. Bilateral upper ex tremity: Motor functions are grossly intact, sensation is grossly intact to light touch, sling is in place. Objective Labs Result Diagrams: 10/24/21 08:10 Labs: Laboratory Results - last 24 hr 10/24/21 08:10 WBC 12.5 H RBC 3.27 L Hgb 10.0 L Hct 29.5 L MCV 90.5 MCH 30.7 MCHC 34.0 RDW 13.2 Plt Count 276 PFSH Medical History Arthritis Bilateral arm pain Bilateral shoulder pain Body posture problem Cervical somatic dysfunction COVID-19 virus infection (~05/2021) COVID-19 virus infection (~07/29/21) Dry eyes Essential tremor Excessive daytime sleepiness Finger pain, left Frontal sinus pain GERD (gastroesophageal reflux disease) Hemorrhoids Hyperlipidemia Hypertension Left shoulder pain Low back pain (~10/2016) Lumbar region somatic dysfunction Medicare annual wellness visit, subsequent Migraines Obesity (BMI 30-39.9) Obstructive sleep apnea of adult Onychomycosis Osteopenia (~2008) Patient has active physician orders for life-sustaining treatment (POLST) form Pelvic somatic dysfunction Prolonged QT interval Rash and nonspecific skin eruption Sacral region somatic dysfunction Sleep apnea Thoracic region somatic dysfunction Toe pain, left Upper extremity somatic dysfunction Vertigo Surgical History History of knee replacement History of total abdominal hysterectomy and bilateral salpingo-oophorectomy Hx of hemorrhoidectomy Hx of hernia repair Hx of vaginal surgery Family History Mother Cancer Father No problems noted. Social History marital status: details: naz Winston, lives in [place] household members: spouse lives independently: Yes caregiver/support person: No housing: house Smoking Status: Never smoker alcohol intake: current Discharge Assessment & Plan Assessment and Plan Assessment: -stable status post left total shoulder arthroplasty -acute post hemorrhagic anemia, asymptomatic Plan of Treatment: -Maintain standard total shoulder protocol: -Continue with sling. Sling should be worn during the day when you are active, standing, or riding in a car. It should always be worn at night for the first 6 weeks. -Start outpatient PT 3-5 days after surgery. -No active shoulder motion for 4 weeks, all planes. -No active internal rotation of the shoulder for 6 weeks. -continue with multimodal pain management -aspirin 81 b.i.d. x6 weeks for DVT prophylaxis -Hemovac DC today -DC home today Discharge Plan Discharge Plan Patient Disposition: Home Discharge orders & Medications Discharge Orders: Discharge (Order); Ordered 10/24/21 Ordered By: Roberta Cho Prescriptions: New aspirin 81 mg Tablet,Delayed Release (Dr/Ec) 81 mg PO BID 42 Days Qty: 84 0RF Rx Instructions: Prevent blood clots docusate sodium 100 mg Capsule 100 mg PO BID PRN (Reason: Constipation from narcotic pain meds) Qty: 20 0RF oxycodone 5 mg tablet See Rx Instructions .ROUTE .COMPLEX PRN (Reason: Pain, Moderate (4-6)) Qty: 42 0RF Rx Instructions: Take 1-2 tablets by mouth every 4 hours as needed for moderate to severe postop pain Continued tramadol 50 mg tablet 50 mg PO Q6H PRN (Reason: pain) Qty: 20 0RF fluticasone propionate 50 mcg/actuation spray,suspension 2 spray intranasal BID PRN (Reason: nasal congestion) Qty: 32 3RF meclizine 25 mg tablet See Rx Instructions .ROUTE .COMPLEX Qty: 90 3RF Dose Instruction: TAKE ONE TABLET BY MOUTH ONE TIME DAILY Rx Instructions: TAKE ONE TABLET BY MOUTH ONE TIME DAILY fenofibrate 54 mg tablet See Rx Instructions .ROUTE .COMPLEX Qty: 90 0RF Dose Instruction: TAKE ONE TABLET BY MOUTH ONE TIME DAILY Rx Instructions: TAKE ONE TABLET BY MOUTH ONE TIME DAILY propranolol 60 mg capsule,extended release 24 hr See Rx Instructions .ROUTE .COMPLEX Qty: 90 0RF Dose Instruction: TAKE ONE CAPSULE BY MOUTH ONE TIME DAILY Rx Instructions: TAKE ONE CAPSULE BY MOUTH ONE TIME DAILY hydrochlorothiazide 25 mg tablet See Rx Instructions .ROUTE .COMPLEX Qty: 90 3RF Dose Instruction: TAKE ONE TABLET BY MOUTH ONE TIME DAILY Rx Instructions: TAKE ONE TABLET BY MOUTH ONE TIME DAILY omeprazole 20 mg capsule,delayed release(DR/EC) See Rx Instructions .ROUTE .COMPLEX Qty: 90 0RF Dose Instruction: TAKE ONE CAPSULE BY MOUTH ONE TIME DAILY Rx Instructions: TAKE ONE CAPSULE BY MOUTH ONE TIME DAILY niacin 500 mg tablet 500 mg PO DAILY triamcinolone acetonide 0.5 % cream 1 applic topical DAILY PRN (Reason: Rash) ibuprofen 200 mg Tablet 200 - 400 mg PO BID PRN (Reason: Pain) diphenhydramine HCl 25 mg Capsule 25 mg PO DAILY (DME) [employer]Med AirSense 10 CPAP Qty: 1 Dose Instruction: As directed Label Comments: Pressure: 11-18 cmH2O DME: [facility] Rx Instructions: As directed Discontinued aspirin 81 mg Tablet,Delayed Release (/Ec) 81 mg PO DAILY Follow up/Referrals: Christopher Ramirez MD [Physician] - As previously scheduled (Follow up w/ Dr Ramirez on 11/03/2021 @ 11:00 am at [facility] in [place].) Stuart Kellogg DO [Primary Care Provider] - Diet/Activity/Treatments Diet: Diet as Tolerated Activity: Sling should be worn during the day when you are active, standing, or riding in a car. It should always be worn at night for the first 6 weeks. Start outpatient PT 3-5 days after surgery. No active shoulder motion for 4 weeks, all planes. No active internal rotation of the shoulder for 6 weeks. Cold/Heat Therapy: Ice to shoulder as needed for pain, 3 times/day, up to 20 minutes at a time. Other treatments: Medications: -Aspirin 81mg twice daily x6 weeks to prevent blood clots. -OTC Tylenol 500 mg 1 tablet every 4 hours as needed for pain/fever. Max 6 tablets per day. -Ibuprofen 400mg 1 tablet every 4 hours as needed for pain/inflammation. Max 2,400mg per day. -Oxycodone 5 mg take 1-2 tablets every 4 hours as needed for moderate-severe pain (narcotic pain medication). -As needed medications: -Ducolax and /or MiraLax as needed for constipation from narcotic pain medications. -Pepcid AC as needed for stomach upset (usually from aspirin or ibuprofen). Dressing/Wound care: -Keep Aquacell dressing in place until postoperative follow-up office visit. -Okay to shower. Keep wound out of direct water stream. No soaking or submerging until all the scabs fall off (approximately 6 weeks). -Please call the office if dressing becomes wet, soiled, or saturated. Activities: -Maintain standard total shoulder protocol: -Continue with sling. Sling should be worn during the day when you are active, standing, or riding in a car. It should always be worn at night for the first 6 weeks. -Start outpatient PT 3-5 days after surgery. -No active shoulder motion for 4 weeks, all planes. -No active internal rotation of the shoulder for 6 weeks. -Ice your incision as needed for pain/inflammation/swelling. Protect your skin with a folded pillowcase. -Incentive Spirometer (breathing device from [facility]): 5-10xs every hour while awake for the first 1-2 weeks. Follow-up: -Follow-up with your surgeon or PA in the office in 10-14 days after surgery. -Follow-up with your surgeon 6 weeks postoperatively. Call the office if you have chest pain, shortness of breath, significant swelling that will not resolve with elevating, fever over 101?, significantly worsening pain, or are concerned you might need to go to the Emergency Room. [facility] Orthopedics: [phone] Skin/Wound/Dressing Care Report to your healthcare provider any signs of infection, such as:: chills, fever, night sweats, unusual drainage and unusual redness Dressing: May shower. Leave Aquacel dressing in place until follow up appointment. No bathing or otherwise soaking incision. Visit Report/Discharge Packet Instructions: DI for Shoulder Replacement Stand Alone Forms: Surgery Discharge Discharge Data Primary Care Provider: Stuart Kellogg Attending Provider: Christopher Ramirez VTE Deep Vein Thrombosis/Pulmonary Embolism Present on Admission: No
--- NOTE | 2021-10-24 10:46 | CM.DANOTE ---
Patient is an 81 yo female who was admitted on 10/23/21 for LTSA. Pt has [facility] for insurance and her PCP is Dr. Stuart Kellogg. EMR was reviewed. Per Ortho PA, pt tolerated shoulder surgery well and medically stable for d/c to home today and no identified barriers to discharge. Per PT, recommending safe d/c to home with spouse assist and outpt PT. SW met briefly bedside with pt and spouse and explained role and pt confirms they live in [place] and pt is independent with ADL's at baseline and drives and spouse is attentive and available for assist at d/c. Pt denies any hx of SNF or HH and does not anticipate any needs at d/c. Pt and spouse are comfortable with plan of d/c to home later today after final CG training with [employer] this morning. Plan: Patient to d/c home today via spouse POV and outpt follow up with Ortho and outpt PT. No further SW needs at this time. STACI Olivares Discharge Planning/Care Management CM Discharge Assessment Start: 10/24/21 10:44 Freq: Status: Active Protocol: Document 10/24/21 10:44 [facility] (Rec: 10/24/21 10:46 [facility] [id number]) Discharge Planning Assessment Assigned [employer] STACI Carpenter DPOA/Assigned Designee Name Yudy Lloyd Contact Information [phone] Advance Directives? Yes: POLST Advance Directives on File Yes History Provided By Patient,Significant Other, Medical Record Has Patient been admitted in last 30 No days? Prior Living Arrangements House Household Members spouse Type of transporation used prior to Drives own vehicle admit Independent with ADL's Yes Is patient alert and oriented? Yes Caregiver for Another No Community Services used prior to Physical Therapy admission: Patient/Family Preference OP PT Therapy Barriers to Discharge No Discharge Plan Home Community Services Physical Therapy Transportation Arrangement Spouse bedside and providing transport at d/c Referrals Initiated None needed Whiteboard Updated in Patient Room with Yes name and ext. # of [employer] Review Status In Process Please Provide Date Initial DC 10/24/21 Assessment Was Performed Next Review Type Continued Stay Review Pre-Anesthesia Assessment Start: 10/13/21 13:51 Freq: Status: Complete Protocol: Document 10/13/21 13:51 [facility] (Rec: 10/13/21 14:34 [facility] [id number]) Pre-Anesthesia Assessment Preferred Name Jenifer Patient Information Reviewed Via Phone Assessment Diagnostic Results BMP/CMP,CBC,EKG Comment Labs/ECG @ [facility] 09/16/21, COVID screen Primary Care Provider Stuart Kellogg Specialist Seen Emergency,Orthopedist,Sleep specialist Primary Language Citizen Of [place] Outside Cutter Required No Height 154.94 cm Weight 75.296 kg Body Mass Index (BMI) 31.4 Hearing Ability Hard of Hearing,Use of Hearing Aid Visual Impairment No Limitations Visual Assist None Dentition Type Teeth, Natural Present,Dental Implants Barriers to Learning None Other Aids Yes: CPAP Comment Pt denies Hx Anesthesia Reactions Yes: PONV Hx Family Anesthesia Reaction No Hx Malignant Hyperthermia No Hx Blood Transfusions No Hx Blood Transfusion Reaction No Anesthesia Review Requested No alcohol intake current alcohol intake frequency holidays/special occasions only Smoking Status Never smoker Substance Use Type does not use Pain Present Pain Reported Musculoskeletal Symptoms Joint Pain,Limited Range of Motion History of Falling (Recent or History of Yes ) Patient is completely paralyzed or No completely immobile Mental Status Oriented to own ability Comment Balance issues related to inner ear problems Is patient on oxygen? No Does patient have DSOUZA/SOB Yes: Pt feels r/t deconditioning Hx Sleep Apnea Yes CPAP/BIPAP use prescribed and used routinely Currently Taking a Beta Magno Yes: Propranolol Can You Climb a Flight of Stairs Without No SOB Hx Chest Pain No Hx SOB Yes: Pt feels r/t deconditioning Hx Syncope or Dizziness Yes Anti-Coagulant Therapy No Has a Program Manager Rn No Cardiac Testing No Hx Pacemaker/ICD No Pacemaker Rep Required? No Cardiac Clearance Received Not Applicable Diet Type At Home Regular dysphagia Yes: Not presently Gastrointestinal Symptoms Reflux Urinary Catheter Present No Hx Urinary Self Catheterization No Diabetes No HgbA1C 5.9 Date 09/16/21 Patient No Lactating No Presence of External or Internal Medical Yes: [place] knee replacements, Devices CPAP Have you had any close contact with Yes: Pt had COVID + x 2 06/06, someone diagnosed with COVID-19? 07/29/21 Received a COVID vaccine? Yes Received all doses? No Marital Status Lives With spouse Prior Living Arrangements House Number of Floors (Floors) One Floor Support System Spouse Does the Patient Have Assistance After Yes Surgery Patient Discharge Plan Description Return Home Comment Pt advised overnight length of stay per surgeon Feels Safe in Current Environment Yes Been Physically Hurt or Threatened By a No Person in Current Environment Do you have thoughts of harming yourself None or others? Are you currently considering suicide? No Do you have a plan to hurt yourself or No Plan others? Do You Have Any Spiritual Beliefs That No May Affect Your HC Choices? Do You Have Any Cultural Practices That No May Affect Your HC Choices? Comment Eduin Who Can We Speak to About Patient's Care Family, friends Identifying Code for Release of Patient Declines to issue Information Health Care Proxy/Next of Kin [facility] () Health Care Proxy Advance Directives? Yes: POLST Advance Directives on File Yes Power of Windows Architect Yes Power of Windows Architect Name [facility] () Power of Windows Architect PAC Instructions Bring CPAP/BIPAP,Do not shave/ clip surgical site,Durable medical equipment,Medications to take/avoid,Nasal antibiotic ,No ETOH/petroleum product on skin DOS,NPO,Post-op transportation,Pre-surgical wash,Sensory aids,Sturdy shoes /comfortable clothes,Do not bring valuables and remove jewelry
--- NOTE | 2021-10-24 11:25 | PT.IPTN ---
Current Diagnoses Primary osteoarthritis, left shoulder (10/23/21) Incomplete rotator cuff tear or rupture of left shoulder, not specified as traumatic (10/23/21) Surgery Performed Operation Date: 10/23/21 07:45 Actual Procedures p Total Shoulder Arthroplasty(Left) - Christopher Ramirez MD Physical Therapy Treatment Note M2 PT-IP Current Condition Start: 10/23/21 15:24 Freq: NEEDED Status: Active Protocol: Document 10/23/21 16:07 [facility] (Rec: 10/23/21 17:59 [facility] [id number]) Physical Therapy Current Condition Current Condition Evaluation Date 10/23/21 Treatment Diagnosis L TSA M3 PT-IP Subjective Start: 10/23/21 15:24 Freq: NEEDED Status: Active Protocol: Document 10/24/21 10:40 [place] (Rec: 10/24/21 12:20 [place] [id number]) Subjective Physical Therapy Visit Type Type Treatment Note Visit Start Time 10:40 Visit Stop Time 11:25 Total Visit Minutes 45 Notes Pts spouse present for caregiver training. Number of DIRECTOR PROSPECT Visits 1 M4 PT-IP Mobility and Gait Start: 10/23/21 15:24 Freq: NEEDED Status: Active Protocol: Document 10/24/21 10:40 [place] (Rec: 10/24/21 12:20 [place] [id number]) PT-Bed Mobility Assessment Sit to Supine Sit to Supine Minimal Assistance,1 Person Assistance Scooting Scooting to Edge of Bed Standby Assistance Scooting Up and Down in Bed Standby Assistance PT-Transfer Assessment Sit to and From Stand Sit to and from Stand Standby Assistance,Use of Upper Extremities Equipment Transfer Assistive Device Gait Belt,Straight Cane Orthotic/Prosthetic Devices or Brace: Yes Transfers Transfer Destination Bed Transfer Technique Pt ambulated w/ SPC Transfer Ability Level of Assist Contact Guard Assistance, Minimal Assistance Comments Mobility Comments Pt in bed from arrival, needed Min A for sup<>sit from flat bed. able to assist. Pt SBA for sit<>Stand. Educated pt and on donning and doffing sling as well as UE exercises. Pt and w/ good understanding. Pt ambulated ~40 ft in room and then used bathroom independently. Do not wish to perform stair training and feel comfortable to perform at home. Pts offers he assisted her after knee surgery, was familiar w/ how to assist w/ bed mobility and gait belt. Pt feels ready to return home w/ support . Gait Assessment Gait Gait Assistance Required: Standby Assistance Distance (Feet) 40 Able to Maintain Weight Bearing Status Yes During Gait Assistive Devices Assistive Device Gait Belt,Straight Cane Orthotic/Prosthetic Devices or Brace: Yes Gait Deviations General Gait Pattern Decreased Feet Clearance Factors Limiting Gait Function Factors Limiting Gait Function Decreased Strength,Poor Balance Comments Gait Comments Good use of SPC, no LOB. Stair Climbing Assessment Comments Stair Climbing Comments n/t, pt refused. Feels confident to complete at home w/ . PT-Balance Assessment Sitting Balance and Reactions Static Sitting Balance Ability Normal Dynamic Sitting Balance Ability Normal Standing Balance and Reactions Static Standing Balance Ability Good Dynamic Standing Balance Ability Good Device Used cane M5 PT-IP Objective Assessments Start: 10/23/21 15:24 Freq: NEEDED Status: Active Protocol: Document 10/23/21 16:07 [facility] (Rec: 10/23/21 17:59 [facility] [id number]) Orientation Orientation/Cognition Level of Alertness Alert Language Function Ability No Deficits Noted Safety Awareness Understands Safety Issues Memory Description No Deficits Noted Gross Range of Motion Upper Extremity ROM Assessment Left Impaired Strength Upper Extremity Strength Assessment Left Impaired Lower Extremity Strength Assessment Within Functional Limits M6 PT-IP Treatment Start: 10/23/21 15:24 Freq: NEEDED Status: Active Protocol: Document 10/24/21 10:40 [place] (Rec: 10/24/21 12:20 [place] [id number]) Physical Therapy Treatment Exercises Exercises Shoulder Pendulums,Elbow Flexion/Extension,Wrist ROM, Hand ROM Education Education Provided Precautions,Weight Bearing Status,Safety Brace Education Donning,Em[employer]ium,Patient, Caregiver Other Treatments Other Treatment Performed Completed caregiver training w / pts . M7 PT-IP Assessment and Plan Start: 10/23/21 15:24 Freq: NEEDED Status: Active Protocol: Document 10/24/21 10:40 [place] (Rec: 10/24/21 12:20 [place] [id number]) PT Summary Assessment and Plan Potential Rehabilitation Potential Good Summary Impairments Pain,ROM,Strength,Balance,Bed Mobility,Transfers,Gait Progress Towards Goals Progressing Toward Goals Assessment Summary Pt progressing well w/ PT. Needs min A for sup<>sit, but able to provide. Completed caregiver training w / pts who was able to assist w/ bed mob, exercises, and donning/doffing sling. Pt and have good understanding of precautions and exercises. Pt has SPC she will use at home when ambulating. She did not agree to stair training and felt it was not needed, she had no LOB during ambulation and was able to marchi in place. Pt will need OPPT to improve strength, stability, and ROM. Goals Bed Mobility Goal Independent Transfer Goal Independent Gait Goal Independent Gait Distance 150ft Other Goals up/down 3 steps w/L rail SBA Days to Meet Goals 3 Frequency of Treatment Frequency Of Treatment Twice a Day Treatment Plan Physical Therapy Treatment Plan Bed Mobility Training,Transfer Training,Gait Training, Therapeutic Exercise,Balance Retraining,Neuromuscular Re-ed ,Manual Therapy Other Recommendations and Next Treatment do stairs, bed mobilityw /o Focus rail, instruct TSA exercises, edu re: ADLs Precautions Shoulder Precautions Sling,PROM,Internal Rotation to Body,No External Rotation, No Abduction,Forward Flexion to 90 degrees,Pendulums Weight Bearing Status Weight Bearing Status Non-Weight Bearing Allowed Weight Bearing Amount (enter % LUE or #) (%) Recommendations To Nursing Amount of Assist Needed Standby Assistance Discharge Recommendations PT Discharge Recommendations Home with Assistance, Outpatient PT Transportation Needs at Discharge Private Vehicle
[2021-10-24] MEDS: IBUPROFEN 200 MG TABLET 400 MG PO (12:02)
--- NOTE | 2021-10-24 13:54 | PC.NURSE ---
Pt is A&Ox3, VSS, afebrile. She denies n/v and CMS+ to fingers. She is ambulating well and voiding without difficulty. She has good po intake. L arm in sling. Aquacel dressing clean dry and intact. Pt's hemovac with approximately 40 cc out put. Drain removed per orders, she is cleared by PT and ortho PA to discharge home today. Her and her verbalize understanding of medications, L shoulder limitations, site care, and follow up care as well as worsening symptoms and what to do. She is escorted via w/ch by RE[employer]IGERATED CARGO CLERK to private vehicle with her for discharge home after lunch at approximately 1340.
== END 2021-10-24 13:42 | disposition home or self-care (01) ==
LOC: OR 06:11 → AC 06:12
PROVIDERS: PCP Family Medicine; Referring Provider Orthopaedic Surgery; Visit Provider Orthopaedic Surgery
PROC: (CPT 23472; principal; 2021-10-23 07:45)
DX: M19.012 Primary osteoarthritis, left shoulder (principal); K21.9 Gastro-esophageal reflux disease without esophagitis; E66.9 Obesity, unspecified; G47.33 Obstructive sleep apnea (adult) (pediatric); I10 Essential (primary) hypertension; E78.5 Hyperlipidemia, unspecified; M85.80 Other specified disorders of bone density and structure, unspecified site; M25.712 Osteophyte, left shoulder; Z68.29 Body mass index [BMI] 29.0-29.9, adult
CPT/HCPCS: 23472; 36415; 64450; 73030; 85027; 97110; 97116; 97162; 97530; 97535; C1776; J0330; J1100; J2250; J2405; J2704; J3010

== ENCOUNTER → 2022-08-01 14:19 | Outpatient (CLI) | payer MEDICARE, SELFPAY ==
[2021-10-23 12:16] VITALS: BMI 32.1
--- NOTE | 2022-08-01 14:21 | DI.RAD.S_ITS ---
PROCEDURE: XR LUMBAR SPINE 2-3V INDICATIONS: Left lower back pain TECHNIQUE: 3 views of the lumbar spine were acquired. COMPARISON: [facility], CR, XR LUMBAR SPINE 2-3V, 11/11/2020, 13:55. FINDINGS: Bones: 5 [id number] vertebrae are present. There is normal bony alignment. No vertebral body compression fractures. No suspicious bony lesions. Disc space narrowing and hypertrophic facet joints present. Grade 1 anterior spondylolisthesis L3-4 L4-5 Soft tissues: Overlying bowel gas pattern is normal. No suspicious soft tissue calcifications. IMPRESSION: Degenerative disc disease and arthropathy without fracture or traumatic malalignment Approved by: Yasmani Tilley M.D. on 08/01/2022 at 14:14
== END ==
PROVIDERS: PCP Family Medicine; Referring Provider Physician Assistant; Visit Provider Physician Assistant
DX: M47.816 Spondylosis without myelopathy or radiculopathy, lumbar region (principal); M51.36 Other intervertebral disc degeneration, lumbar region; M54.50 Low back pain, unspecified
CPT/HCPCS: 72100

== ENCOUNTER 2022-08-01 20:01 | Emergency (ER) | payer MEDICARE, SELFPAY ==
[2021-10-23 12:16] VITALS: BMI 32.1
[2022-08-01 20:09] VITALS: BP 188/77; PULSE 68; RESP 18; TEMP 36.4; O2SAT 100; BMI 32.1
--- NOTE | 2022-08-01 21:49 | ED_ITS ---
HPI - Back Pain/Injury General Chief Complaint: Back Pain/Injury Stated Complaint: Back spasm Time Seen by Provider: 08/01/22 21:49 Source: patient History of Present Illness HPI Narrative: 81-year-old woman with a history of hypertension, hyperlipidemia, degenerative disc disease, prior episodes of muscle spasm who was doing a bit more physical activity/weightlifting yesterday and this morning noticed increasing spasm along the right side L1-2 area. In the past she has had luck with tramadol as well as the muscle relaxer. She was seen in urgent care this morning and given a dose of dexamethasone for inflammation and Flexeril. She noticed some minor imp rovement but over the course of the day has continued to worsen. Workup this morning also included lumbar spine films that do not show any evidence of spontaneous compression fracture or other significant pathology, urinalysis does not have blood or leukocytes suggesting no kidney stone and no bladder/pyelonephritis. Patient is able to walk and get up out of the chair with minimal difficulty. She simply concerned that she is not going to be able to sleep tonight because the spasms continue. She describes no nausea, vomiting or diarrhea. She has not been ill recently. We discussed the possibility of pain that can be related to zoster prior to rash outbreak. She notes that she has had 2 zoster vaccines. Related Data Home Medications Medication Instructions Recorded Confirmed ResMed AirSense 10 CPAP #1 ea 04/28/18 04/23/22 niacin 500 mg tablet 500 mg PO DAILY 11/07/18 04/23/22 ibuprofen 200 mg tablet 200 - 400 mg PO BID PRN Pain 10/13/21 04/23/22 triamcinolone acetonide 0.5 % 1 applic topical DAILY PRN Rash 10/13/21 04/23/22 topical cream diphenhydramine HCl 25 mg capsule 25 mg PO DAILY 10/21/21 04/23/22 Previous Rx's Medication Instructions Recorded tramadol 50 mg tablet 50 mg PO Q6H PRN pain #20 tabs 12/02/20 hydrochlorothiazide 25 mg tablet See Rx Instructions .Route 08/22/21 .COMPLEX #90 tabs docusate sodium 100 mg capsule 100 mg PO BID PRN Constipation 10/24/21 from narcotic pain meds #20 caps propranolol 60 mg capsule,24 60 mg PO DAILY #90 caps 10/29/21 hr,extended release fluticasone propionate 50 2 spray intranasal BID PRN nasal 11/25/21 mcg/actuation nasal congestion #32 grams spray,suspension meclizine 25 mg tablet See Rx Instructions .Route 05/26/22 .COMPLEX #90 tabs fenofibrate 54 mg tablet See Rx Instructions .Route 06/08/22 .COMPLEX #90 tabs omeprazole 20 mg capsule,delayed 20 mg PO DAILY #90 caps 07/17/22 release oxycodone-acetaminophen 5 mg-325 1 tab PO Q6H PRN pain #10 tabs 08/01/22 mg tablet Allergies Allergy/AdvReac Type Severity Reaction Status Date / Time morphine [MORPHINE] Allergy Severe SWELLING Verified 08/01/22 20:09 atorvastatin [ATORVASTATIN] Allergy Intermediate Joint Pain Verified 08/01/22 20:09 simvastatin [SIMVASTATIN] Allergy Intermediate hives, Verified 08/01/22 20:09 itchiness, swelling, nausea ezetimibe [From ZETIA] AdvReac Intermediate Joint Pain Verified 08/01/22 20:09 Review of Systems Review of Systems Narrative: Pertinent positive and negative findings as per HPI Patient History Medical History Arthritis Bilateral arm pain Bilateral shoulder pain Body posture problem Cervical somatic dysfunction COVID-19 virus infection (~05/2021) COVID-19 virus infection (~07/29/21) Dry eyes Essential tremor Excessive daytime sleepiness Finger pain, left Frontal sinus pain GERD (gastroesophageal reflux disease) Hemorrhoids Hyperlipidemia Hypertension Left shoulder pain Low back pain (~10/2016) Lumbar region somatic dysfunction Migraines Obesity (BMI 30-39.9) Obstructive sleep apnea of adult Onychomycosis Osteopenia (~2008) Patient has active physician orders for life-sustaining treatment (POLST) form Pelvic somatic dysfunction Prolonged QT interval Rash and nonspecific skin eruption Sacral region somatic dysfunction Sleep apnea Thoracic region somatic dysfunction Toe pain, left Upper extremity somatic dysfunction Vertigo Surgical History History of knee replacement History of total abdominal hysterectomy and bilateral salpingo-oophorectomy Hx of hemorrhoidectomy Hx of hernia repair Hx of vaginal surgery Family History Mother Cancer Father No problems noted. Social History marital status: details: naz Winston, lives in [place] household members: spouse lives independently: Yes caregiver/support person: No housing: house Smoking Status: Never smoker alcohol intake: current Smoking Status: Never smoker alcohol intake frequency: 0-2 drinks per day Substance Use Type: does not use Exam Initial Vital Signs Initial Vital Signs: Vital Signs Temperature 97.6 F 08/01/22 20:09 Pulse Rate 68 08/01/22 20:09 Respiratory Rate 18 08/01/22 20:09 Blood Pressure 188/77 H 08/01/22 20:09 Pulse Oximetry 100 08/01/22 20:09 Oxygen Delivery Method Room Air 08/01/22 20:09 General: Healthy appearing, in no acute distress. Able to give a complete and coherent history. Well-nourished well-developed Abdomen: Soft, nontender, good bowel tones, no flank pain Palpation along the thoracic and lumbar spine does not reveal any midline point tenderness. No rashes. Skin: Warm and dry, no rashes Neurologic: Grossly neurologically intact with no obvious asymmetries or abnormalities. No specific paresthesias in the lower extremities Extremities: No trauma, well perfused Psych: Cooperative, appropriate insight and affect Course Vital Signs Vital signs: Vital Signs - 8 hr 08/01/22 20:09 Temperature 97.6 F Pulse Rate 68 Respiratory Rate 18 Blood Pressure 188/77 H Pulse Oximetry 100 Oxygen Delivery Method Room Air MDM - Back Pain/Injury MDM Narrative Medical decision making narrative: CC: Lumbar paraspinous spasm. This is a new problem uncertain prognosis Complicating co-morbidities: Age, prior lumbar pain and tenderness, Data collected from: patient, Social determinants of health that may influence the patients condition: Increased weights in her home exercise routine yesterday Medical records reviewed: Notes from urgent care as well as studies done urgent care this morning are reviewed. Differential considered: Spontaneous compression fracture, musculoskeletal pa in, prodromal zoster, given workup already today bladder infection, pyelonephritis, epidural abscess or diskitis or complicating metastatic or primary neoplastic disease or for less likely. Exam documented above, pertinent findings include: Lab Test results independently reviewed as above. Pertinent findings: Urinalysis is unremarkable Imaging studies independently reviewed: Lumbar spine films from earlier today are unremarkable Treatments: Oral Percocet Discussion: 81-year-old woman with acute musculoskeletal back pain worsening over the last 24 hours with reports of increased weight is added to her usual home routine yesterday. No evidence of pathologic fractures, shingles, infection, intra-abdominal pathology, pyelonephritis or kidney stones. As treatment to date has not been effective I have added a single dose of Percocet. I believe the dexamethasone given earlier today will be quite effective. She is encouraged to use Tylenol at home for minor pain and I will give her a small prescription for Percocet for severe pain. I did ask her to not mix the muscle relaxer and the narcotic. We also clearly reviewed the importance of stool softeners while taking narcotic pain medication. Questions are answered and she is safe for discharge home Discharge Plan Departure Patient Disposition: Home Clinical Impression: Acute lumbar myofascial strain Instructions: DI for Back Strain or Sprain Activity Restrictions/Additional Instructions: Thank you for coming in today Fortunately, there does not appear to be any life-threatening abnormality, infection or new bone injury causing your pain. I have given you a Percocet in the emergency department. This is narcotic. Can cause constipation, please make sure that you are using a stool softener consistently. It is very important that you do not mix Percocet with your muscle relaxer or with tramadol. For mild pain you can try Tylenol, this is safe with your current kidney function. If you find that you are not improving, developing new symptoms or any type of rash you do need to return to the emergency department. Prescriptions: New oxycodone-acetaminophen 5-325 mg tablet 1 tab PO Q6H PRN (Reason: pain) Qty: 10 0RF No Action tramadol 50 mg tablet 50 mg PO Q6H PRN (Reason: pain) Qty: 20 0RF hydrochlorothiazide 25 mg tablet See Rx Instructions .ROUTE .COMPLEX Qty: 90 3RF Dose Instruction: TAKE ONE TABLET BY MOUTH ONE TIME DAILY Rx Instructions: TAKE ONE TABLET BY MOUTH ONE TIME DAILY propranolol 60 mg capsule,extended release 24 hr 60 mg PO DAILY Qty: 90 3RF fluticasone propionate 50 mcg/actuation spray,suspension 2 spray intranasal BID PRN (Reason: nasal congestion) Qty: 32 3RF meclizine 25 mg tablet See Rx Instructions .ROUTE .COMPLEX Qty: 90 3RF Dose Instruction: TAKE ONE TABLET BY MOUTH ONE TIME DAILY Rx Instructions: TAKE ONE TABLET BY MOUTH ONE TIME DAILY fenofibrate 54 mg tablet See Rx Instructions .ROUTE .COMPLEX Qty: 90 1RF Dose Instruction: TAKE ONE TABLET BY MOUTH ONE TIME DAILY Rx Instructions: TAKE ONE TABLET BY MOUTH ONE TIME DAILY omeprazole 20 mg capsule,delayed release(DR/EC) 20 mg PO DAILY Qty: 90 3RF niacin 500 mg tablet 500 mg PO DAILY triamcinolone acetonide 0.5 % cream 1 applic topical DAILY PRN (Reason: Rash) ibuprofen 200 mg Tablet 200 - 400 mg PO BID PRN (Reason: Pain) diphenhydramine HCl 25 mg Capsule 25 mg PO DAILY docusate sodium 100 mg Capsule 100 mg PO BID PRN (Reason: Constipation from narcotic pain meds) Qty: 20 0RF (DME) ResMed AirSense 10 CPAP Qty: 1 Dose Instruction: As directed Patient Comments: Pressure: 11-18 cmH2O DME: [facility] Rx Instructions: As directed Referrals: Stuart Kellogg DO [Primary Care Provider] - Stand Alone Forms: Patient Portal/API
[2022-08-01] MEDS: OXYCODONE/ACETAMINOPHEN 5/325 TABLET 1 TAB PO (22:19)
[2022-08-01] MEDS: OXYCODONE/APAP 5/325 PREPACK 1 BOTTLE MISC (22:20)
[2022-08-01 22:46] VITALS: BP 168/74; PULSE 68; RESP 16; TEMP 36.5; O2SAT 97
== END 2022-08-01 22:47 | disposition home or self-care (01) ==
PROVIDERS: Emergency Provider Emergency Medicine; PCP Family Medicine
DX: S39.012A Strain of muscle, fascia and tendon of lower back, initial encounter (principal); X50.0XXA Overexertion from strenuous movement or load, initial encounter; M51.36 Other intervertebral disc degeneration, lumbar region; M47.816 Spondylosis without myelopathy or radiculopathy, lumbar region; M54.50 Low back pain, unspecified
CPT/HCPCS: 72100; 99283

== ENCOUNTER → 2022-10-16 11:58 | Outpatient (CLI) | payer MEDICARE, SELFPAY ==
[2022-08-02 13:31] VITALS: BMI 32.1
[2022-10-16 12:24] LABS: Add Manual Diff / Slide Review NO; Basophils Absolute Auto 100 /uL (0-100); Eosinophils Absolute Auto 100 /uL (0-450); Eosinophils Percent Auto 2.1 % (2-4); Hemoglobin 12.4 g/dL (12.0-16.0); Lymphocytes Absolute Auto 1500 /uL (1100-4500); Lymphocytes Percent Auto 25.4 % (25-40); Mean Corpuscular HGB Conc 35.4 % (30-36); Mean Corpuscular Hemoglobin 31.5 PG (26-34); Mean Corpuscular Volume 88.9 fL (80-100); Monocytes Absolute Auto 500 /uL (0-900); Monocytes Percent Auto 8.5 % (3-14); Neutrophils Absolute Auto 3700 /uL (1500-7000); Platelet Count 376 X10^3/uL (150-400); Red Blood Cell Count 3.94 X10^6/uL (4.0-5.2); Red Cell Distribution Width 12.7 % (11.6-14.8); White Blood Cell Count 5.9 X10^3/uL (4.5-11.0)
[2022-10-16 12:33] LABS: Alanine Aminotransferase 25 IU/L (<35); Albumin 4.4 g/dL (3.5-5.0); Albumin Globulin Ratio 1.4 (1.0-2.8); Alkaline Phosphatase 61 U/L (38-126); Aspartate Aminotransferase 31 IU/L (14-36); BUN Creatinine Ratio 14.4 (6-22); Bilirubin Total 0.6 mg/dL (0.2-1.3); Blood Urea Nitrogen 14 mg/dL (7-17); Calcium 9.5 mg/dL (8.4-10.2); Carbon Dioxide 28 mmol/L (22-32); Chloride 98 mmol/L (98-107); Cholesterol 186 mg/dL (140-199); Estimated Glomerular Filt Rate 59 mL/min (>60); Globulin 3.2 g/dL (1.7-4.1); Glucose 118 mg/dL (80-110); HDL Cholesterol 65 mg/dL (40-60); HEMOLYSIS < 15 (0-50); LDL Cholesterol Calculated 98 mg/dL (<100); Potassium 4.2 mmol/L (3.4-5.1); Sodium 133 mmol/L (137-145); Total Protein 7.6 g/dL (6.3-8.2); Triglycerides 114 mg/dL (35-150)
[2022-10-16 12:42] LABS: Hemoglobin A1C% w Est Avg Glu 5.7 % (4.0-6.0)
== END ==
PROVIDERS: PCP Family Medicine; Referring Provider Family Medicine; Visit Provider Family Medicine
DX: E66.9 Obesity, unspecified (principal); R73.9 Hyperglycemia, unspecified; E78.2 Mixed hyperlipidemia; R74.8 Abnormal levels of other serum enzymes
CPT/HCPCS: 36415; 80053; 80061; 83036; 85025

== ENCOUNTER 2022-10-19 08:04 | Emergency (ER) | payer MEDICARE, SELFPAY ==
[2022-08-02 13:31] VITALS: BMI 32.1
[2022-10-19] VITALS (12 sets, daily range): BP systolic 136–192; BP diastolic 74–153; PULSE 53–68; RESP 16; TEMP 36.6; O2SAT 95–99
--- NOTE | 2022-10-19 08:12 | DI.RAD.S_ITS ---
PROCEDURE: XR CHEST 1V INDICATIONS: GEN WEAKNESS TECHNIQUE: One view of the chest was acquired. COMPARISON: [facility], CR, XR RIBS LT MIN 3V W CXR1V, 09/22/2021, 19:23. FINDINGS: Surgical changes and devices: None. Lungs and pleura: Lungs are clear. No pleural effusions or pneumothorax. Mediastinum: Mediastinal contours appear normal. Heart size is normal. Bones and chest wall: Left shoulder prosthesis. No suspicious bony lesions. Overlying soft tissues appear unremarkable. IMPRESSION: Portable chest within normal limits for age. Dictated by: Rosalba Esteves M.D. on 10/19/2022 at 8:31 Approved by: Rosalba Esteves M.D. on 10/19/2022 at 8:32
--- NOTE | 2022-10-19 08:12 | ED.WEAKNESS ---
HPI - Weakness General Chief complaint: Weakness Stated complaint: weakness Time Seen by Provider: 10/19/22 08:05 History of Present Illness HPI Narrative: 82yoF presents from home by EMS for generalized weakness. Patient has chronic LUE weakness from previous shoulder surgery and balance issues x3 years that a cause has never been found for. Patient was too weak to get out of bed and her called 911. Related Data Home Medications Medication Instructions Recorded Confirmed ResMed AirSense 10 CPAP #1 ea 04/28/18 09/09/22 niacin 500 mg tablet 500 mg PO DAILY 11/07/18 09/09/22 triamcinolone acetonide 0.5 % 1 applic topical DAILY PRN Rash 10/13/21 09/09/22 topical cream Previous Rx's Medication Instructions Recorded fluticasone propionate 50 2 spray intranasal BID PRN nasal 11/25/21 mcg/actuation nasal congestion #32 grams spray,suspension meclizine 25 mg tablet See Rx Instructions .Route 05/26/22 .COMPLEX #90 tabs fenofibrate 54 mg tablet See Rx Instructions .Route 06/08/22 .COMPLEX #90 tabs omeprazole 20 mg capsule,delayed 20 mg PO DAILY #90 caps 07/17/22 release Diabled Parking Permit #1 ea 08/11/22 cyclobenzaprine 10 mg tablet 10 mg PO TID PRN muscle spasm #30 08/11/22 tabs hydrochlorothiazide 25 mg tablet 25 mg PO DAILY #30 tabs 10/02/22 propranolol 60 mg capsule,24 60 mg PO DAILY #30 caps 10/14/22 hr,extended release cephalexin 500 mg capsule 500 mg PO Q12H #14 caps 10/19/22 Allergies Allergy/AdvReac Type Severity Reaction Status Date / Time morphine [MORPHINE] Allergy Severe SWELLING Verified 10/19/22 08:18 atorvastatin [ATORVASTATIN] Allergy Intermediate Joint Pain Verified 10/19/22 08:18 simvastatin [SIMVASTATIN] Allergy Intermediate hives, Verified 10/19/22 08:18 itchiness, swelling, nausea ezetimibe [From ZETIA] AdvReac Intermediate Joint Pain Verified 10/19/22 08:18 Review of Systems Constitutional Comments: generalized weakness Patient History Medical History (Updated 10/19/22 @ 10:05 by Estrellita Frey MD) Adverse effect of anticholinergic Arthritis Balance problem Bilateral arm pain Bilateral shoulder pain Body posture problem BPPV (benign paroxysmal positional vertigo) Cervical somatic dysfunction COVID-19 virus infection (~05/2021) COVID-19 virus infection (~07/29/21) Dry eyes Essential tremor Excessive daytime sleepiness Finger pain, left Foot joint stiffness, bilateral Frontal sinus pain GERD (gastroesophageal reflux disease) Hemorrhoids Hx of skin disorder Hyperlipidemia Hypertension Left shoulder pain Low back pain (~10/2016) Lumbar region somatic dysfunction Migraines Obesity (BMI 30-39.9) Obstructive sleep apnea of adult Onychomycosis Osteopenia (~2008) Patient has active physician orders for life-sustaining treatment (POLST) form Pelvic somatic dysfunction Prolonged QT interval Rash and nonspecific skin eruption Sacral region somatic dysfunction Sleep apnea Thoracic region somatic dysfunction Toe pain, left Upper extremity somatic dysfunction Vertigo Surgical History History of knee replacement History of total abdominal hysterectomy and bilateral salpingo-oophorectomy Hx of hemorrhoidectomy Hx of hernia repair Hx of vaginal surgery Family History Mother Cancer Father No problems noted. Social History marital status: details: naz Winston, lives in [place] household members: spouse lives independently: Yes caregiver/support person: No housing: house Smoking Status: Never smoker alcohol intake: current Smoking Status: Never smoker alcohol intake frequency: 0-2 drinks per day Substance Use Type: does not use Exam Initial Vital Signs Initial Vital Signs: Vital Signs Blood Pressure 136/98 H 10/19/22 08:09 Const General: cooperative, comfortable, well developed and No acute distress Neuro General: patient alert, patient awake, patient oriented x3 and gait normal (for patient) Other: LUE weakness, patient states this is chronic and at baseline. Course Orders Ordered: Discontinued Medications Ceftriaxone Sodium 1,000 mg/ (Sodium Chloride) 100 mls @ 200 mls/hr IV NOW ONE Stop: 10/19/22 09:11 Last Infusion: 10/19/22 10:03 Dose: 0 mls/hr Documented By: Admin: 10/19/22 09:29 Dose: 200 mls/hr Documented By: RB Vital Signs Vital signs: Vital Signs - 8 hr 10/19/22 08:12 10/19/22 08:09 10/19/22 08:10 Temperature 98 F Pulse Rate 63 63 Respiratory Rate 16 Blood Pressure 136/98 H 136/98 H Pulse Oximetry 96 97 Oxygen Delivery Method Room Air 10/19/22 08:30 10/19/22 08:31 10/19/22 09:00 Temperature Pulse Rate 68 68 64 Respiratory Rate Blood Pressure Pulse Oximetry 97 96 97 Oxygen Delivery Method 10/19/22 09:26 10/19/22 09:30 10/19/22 09:31 Temperature Pulse Rate 58 L Respiratory Rate Blood Pressure 187/74 H Pulse Oximetry 97 95 Oxygen Delivery Method 10/19/22 09:31 Temperature Pulse Rate 60 Respiratory Rate Blood Pressure Pulse Oximetry Oxygen Delivery Method MDM - Weakness Lab Data 10/19/22 08:00 10/19/22 08:00 Labs: Lab Results 10/19/22 10/19/22 10/19/22 Range/Units 08:00 08:00 08:45 WBC 5.8 (4.5-11.0) X10^3/uL RBC 4.07 (4.0-5.2) X10^6/uL Hgb 12.7 (12.0-16.0) g/dL Hct 36.2 (36-46) % MCV 89.0 (80-100) fL MCH 31.3 (26-34) PG MCHC 35.2 (30-36) % RDW 12.5 (11.6-14.8) % Plt Count 367 (150-400) X10^3/uL Neut % (Auto) 55.3 (50-75) % Lymph % (Auto) 30.3 (25-40) % [place] % (Auto) 11.1 (3-14) % Eos % (Auto) 2.6 (2-4) % Baso % (Auto) 0.7 (0-2) % Neut # (Auto) 3200 (7616-6524) /uL Lymph # (Auto) 1800 (6353-3307) /uL [place] # (Auto) 600 (0-900) /uL Eos # (Auto) 200 (0-450) /uL Baso # (Auto) 0 (0-100) /uL Sodium 135 L (137-145) mmol/L Potassium 4.1 (3.4-5.1) mmol/L Chloride 101 (98-107) mmol/L Carbon Dioxide 28 (22-32) mmol/L BUN 19 H (7-17) mg/dL Creatinine 1.01 (0.52-1.04) mg/dL Estimated GFR 56 L (>60) mL/min BUN/Creatinine Ratio 18.8 (6-22) Glucose 112 H (80-110) mg/dL Calcium 9.6 (8.4-10.2) mg/dL Magnesium 2.0 (1.6-2.3) mg/dL Total Bilirubin 0.5 (0.2-1.3) mg/dL AST 31 (14-36) IU/L ALT 24 (<35) IU/L Alkaline Phosphatase 73 (38-126) U/L Total Creatine Kinase 62 (30-135) U/L Troponin I < 0.012 (0.01-0.034) ng/mL Total Protein 8.3 H (6.3-8.2) g/dL Albumin 4.5 (3.5-5.0) g/dL Globulin 3.8 (1.7-4.1) g/dL Albumin/Globulin Ratio 1.2 (1.0-2.8) Urine Color Yellow Urine Appearance Clear Urine pH 6.5 (4.5-8.0) Ur Specific [place] <=1.005 (1.000-1.035) Urine Protein Negative (Negative) Urine Glucose (UA) Negative (Negative) g/dL Urine Ketones Negative (NEGATIVE) Urine Occult Blood Trace-intact (Negative) Urine Nitrate Negative (Negative) Urine Bilirubin Negative (NEGATIVE) Urine Urobilinogen 0.2 (0.2) E.U./dL Ur Leukocyte Esterase 3+ H (NEGATIVE) Urine RBC 0-1/hpf (0-5/HPF) Urine WBC 30-100/hpf H (0-5/HPF) Ur Squamous Epith Cells 0-1 /hpf (0-5/HPF) Urine Bacteria Moderate (10-30) H (None) Ur Culture Indicated? Specimen cultured Urine Dip Bedside Urine Glucose Negative Bedside Urine Bilirubin - Negative Bedside Urine Ketone - Negative Urine Specific [place] 1.000 Bedside Urine Occult Blood - Negative Bedside Urine pH 7.5 Bedside Urine Protein - Negative Bedside Urine Urobilinogen - Negative Bedside Urine Nitrite - Negative Bedside Urine Leukocytes +++ 500 Esterase MDM Narrative Medical decision making narrative: Nontoxic appearing patient with generalized weakness. Patient does have chronic balance issues and chronic LUE weakness, however this is at her baseline and unchanged. Laboratory work is reviewed. Patient has significant UTI. Cultures from last UTI several months ago reviewed, it was alcazar-sensitive to antibitoics. patient and counseled of all results at bedside. Discharge Plan Departure Patient Disposition: Home Clinical Impression: Generalized weakness Urinary tract infection Qualifiers: Urinary tract infection type: acute cystitis Hematuria presence: without hematuria Qualified Code(s): N30.00 - Acute cystitis without hematuria Instructions: DI for Urinary Tract Infection (UTI) Prescriptions: New cephalexin 500 mg capsule 500 mg PO Q12H Qty: 14 0RF No Action fluticasone propionate 50 mcg/actuation spray,suspension 2 spray intranasal BID PRN (Reason: nasal congestion) Qty: 32 3RF meclizine 25 mg tablet See Rx Instructions .ROUTE .COMPLEX Qty: 90 3RF Dose Instruction: TAKE ONE TABLET BY MOUTH ONE TIME DAILY Rx Instructions: TAKE ONE TABLET BY MOUTH ONE TIME DAILY fenofibrate 54 mg tablet See Rx Instructions .ROUTE .COMPLEX Qty: 90 1RF Dose Instruction: TAKE ONE TABLET BY MOUTH ONE TIME DAILY Rx Instructions: TAKE ONE TABLET BY MOUTH ONE TIME DAILY omeprazole 20 mg capsule,delayed release(DR/EC) 20 mg PO DAILY Qty: 90 3RF hydrochlorothiazide 25 mg tablet 25 mg PO DAILY Qty: 30 0RF propranolol 60 mg capsule,extended release 24 hr 60 mg PO DAILY Qty: 30 0RF cyclobenzaprine 10 mg tablet 10 mg PO TID PRN (Reason: muscle spasm) Qty: 30 3RF (DME) Diabled Parking Permit See Rx Instructions .Route .MEDSUPPLY Qty: 1 0RF Rx Instructions: Valid for 5 years niacin 500 mg tablet 500 mg PO DAILY triamcinolone acetonide 0.5 % cream 1 applic topical DAILY PRN (Reason: Rash) (DME) ResMed AirSense 10 CPAP Qty: 1 Dose Instruction: As directed Patient Comments: Pressure: 11-18 cmH2O DME: [facility] Rx Instructions: As directed Referrals: Stuart Kellogg DO [Primary Care Provider] - Stand Alone Forms: Patient Portal/API
[2022-10-19 08:23] LABS: Add Manual Diff / Slide Review NO; Basophils Absolute Auto 0 /uL (0-100); Basophils Percent Auto 0.7 % (0-2); Eosinophils Absolute Auto 200 /uL (0-450); Eosinophils Percent Auto 2.6 % (2-4); Hematocrit 36.2 % (36-46); Hemoglobin 12.7 g/dL (12.0-16.0); Lymphocytes Absolute Auto 1800 /uL (1100-4500); Lymphocytes Percent Auto 30.3 % (25-40); Mean Corpuscular HGB Conc 35.2 % (30-36); Mean Corpuscular Hemoglobin 31.3 PG (26-34); Monocytes Absolute Auto 600 /uL (0-900); Monocytes Percent Auto 11.1 % (3-14); Neutrophils Absolute Auto 3200 /uL (1500-7000); Neutrophils Percent Auto 55.3 % (50-75); Platelet Count 367 X10^3/uL (150-400); Red Blood Cell Count 4.07 X10^6/uL (4.0-5.2); Red Cell Distribution Width 12.5 % (11.6-14.8); White Blood Cell Count 5.8 X10^3/uL (4.5-11.0)
[2022-10-19 08:31] LABS: Alanine Aminotransferase 24 IU/L (<35); Albumin 4.5 g/dL (3.5-5.0); Albumin Globulin Ratio 1.2 (1.0-2.8); Alkaline Phosphatase 73 U/L (38-126); Aspartate Aminotransferase 31 IU/L (14-36); BUN Creatinine Ratio 18.8 (6-22); Bilirubin Total 0.5 mg/dL (0.2-1.3); Blood Urea Nitrogen 19 mg/dL (7-17); Calcium 9.6 mg/dL (8.4-10.2); Carbon Dioxide 28 mmol/L (22-32); Chloride 101 mmol/L (98-107); Creatine Kinase 62 U/L (30-135); Estimated Glomerular Filt Rate 56 mL/min (>60); Globulin 3.8 g/dL (1.7-4.1); Glucose 112 mg/dL (80-110); HEMOLYSIS < 15 (0-50); Potassium 4.1 mmol/L (3.4-5.1); Sodium 135 mmol/L (137-145); Total Protein 8.3 g/dL (6.3-8.2)
--- NOTE | 2022-10-19 08:42 | PC.NURSE ---
2 person assist to bed alcazar. Depends changed and patient cleasned with rosy schmidt prior to obtaining urine specimen. She is unsteady and requires standby assist. She states she feels generally weak and like the room is tilted to the left, like I'm on a boat.
[2022-10-19 08:43] LABS: Troponin I < 0.012 ng/mL (0.01-0.034)
[2022-10-19 08:57] LABS: Appearance Urine UA CLEAR; Bilirubin Urine UA NEGATIVE (NEGATIVE); Color Urine UA YELLOW; Glucose Urine UA NEGATIVE (Negative); Ketones Urine UA NEGATIVE (NEGATIVE); Leukocyte Esterase Urine UA 3+ (NEGATIVE); Nitrite Urine UA NEGATIVE (Negative); Occult Blood Urine UA TRACE-INTACT (Negative); Protein Urine UA NEGATIVE (Negative); Specific Gravity Urine UA <=1.005 (1.000-1.035); Urobilinogen Urine UA 0.2 E.U./dL (0.2)
[2022-10-19 09:03] LABS: pH Urine UA 6.5 (4.5-8.0)
[2022-10-19 09:05] LABS: Bacteria Urine Moderate (10-30); Culture Indicated Urine Specimen Cultured; RBC Urine 0-1/HPF (0-5/HPF); Squamous Epithelial Cell Urine 0-1 /HPF (0-5/HPF); WBC Urine 30-100/HPF (0-5/HPF)
[2022-10-19] MEDS: cefTRIAXone 1,000 MG in SODIUM CHLORIDE 0.9% 100 ML 200 MG IV (09:29)
== END 2022-10-19 10:25 | disposition home or self-care (01) ==
PROVIDERS: Emergency Provider Emergency Medicine; PCP Family Medicine
DX: R53.1 Weakness (principal); N30.00 Acute cystitis without hematuria
CPT/HCPCS: 71045; 80053; 81001; 81003; 82550; 83735; 84484; 85025; 87077; 87086; 87186; 93005; 93010; 96365; 99284; J0696

== ENCOUNTER → 2022-10-23 13:16 | Outpatient (CLI) | payer MEDICARE, SELFPAY ==
[2022-08-02 13:31] VITALS: BMI 32.1
--- NOTE | 2022-10-23 13:16 | DI.CT.S_ITS ---
PROCEDURE: CT HEAD/BRAIN WO CON INDICATIONS: Lt sided weakness TECHNIQUE: Noncontrast 4.5 mm thick angled axial sections acquired from the foramen magnum to the vertex, with coronal and sagittal reformats. For radiation dose reduction, the following was used: automated exposure control, adjustment of mA and/or kV according to patient size. COMPARISON: [facility], CR, XR CHEST 1V, 10/19/2022, 8:09. [facility], CT, CT HEAD/BRAIN WO CON, 09/22/2021, 19:24. FINDINGS: Image quality: Excellent. CSF spaces: Basal cisterns are patent. No extra-axial fluid collections. The ventricles are symmetric in size and shape. Brain: Acute intracranial hemorrhage can be seen within the superior medial aspect of the right frontal lobe. The hemorrhage measures up to 2.3 cm. Moderate surrounding edema is seen. Mild associated mass effect is seen. No midline shift. No intracranial bleeds or masses. There is cerebral volume loss for age, with resultant ventricular and sulcal prominence. There are periventricular and deep white matter chronic small vessel ischemic changes. There is intracranial internal carotid artery atherosclerosis. Skull and face: Calvarium and visualized facial bones appear intact, without suspicious lesions. Sinuses: Visualized sinuses and mastoids are clear. IMPRESSION: Acute intraparenchymal hemorrhage seen involving the right frontal lobe superiorly and medially. Moderate surrounding edema is seen. There is mild mass effect, yet without midline shift. Note: Dr. Duggan was not available to discuss this case at the time of this dictation. Case discussed by telephone with triage nurse Cecilia, at 12:45 p.m. [place] time on October 23, 2022, who will relay the findings to Dr. Duggan. Case also discussed by telephone with Dr. Fernando at 12:46 p.m. [place] time on October 23, 2022. Dictated by: Yohannes Landin M.D. on 10/23/2022 at 12:33 Approved by: Yohannes Landin M.D. on 10/23/2022 at 12:48
== END ==
PROVIDERS: PCP Family Medicine; Referring Provider Family Medicine; Visit Provider Family Medicine
DX: G93.6 Cerebral edema (principal); I61.1 Nontraumatic intracerebral hemorrhage in hemisphere, cortical; R53.1 Weakness; R26.89 Other abnormalities of gait and mobility; N39.0 Urinary tract infection, site not specified
CPT/HCPCS: 70450

== ENCOUNTER 2022-10-23 13:46 | Emergency (ER) | payer MEDICARE, SELFPAY ==
[2022-08-02 13:31] VITALS: BMI 32.1
[2022-10-23] VITALS (135 sets, daily range): BP systolic 139–212; BP diastolic 56–96; PULSE 56–74; RESP 18–36; TEMP 36.6; O2SAT 92–100; BMI 32.5
[2022-10-23 14:18] LABS: Add Manual Diff / Slide Review NO; Basophils Absolute Auto 100 /uL (0-100); Basophils Percent Auto 0.9 % (0-2); Eosinophils Absolute Auto 100 /uL (0-450); Eosinophils Percent Auto 1.7 % (2-4); Hematocrit 38.2 % (36-46); Hemoglobin 13.4 g/dL (12.0-16.0); Lymphocytes Absolute Auto 1600 /uL (1100-4500); Lymphocytes Percent Auto 22.2 % (25-40); Mean Corpuscular HGB Conc 35.2 % (30-36); Mean Corpuscular Hemoglobin 31.8 PG (26-34); Mean Corpuscular Volume 90.4 fL (80-100); Monocytes Absolute Auto 700 /uL (0-900); Monocytes Percent Auto 9.1 % (3-14); Neutrophils Absolute Auto 4900 /uL (1500-7000); Neutrophils Percent Auto 66.1 % (50-75); Platelet Count 388 X10^3/uL (150-400); Red Blood Cell Count 4.22 X10^6/uL (4.0-5.2); Red Cell Distribution Width 12.5 % (11.6-14.8); White Blood Cell Count 7.4 X10^3/uL (4.5-11.0)
--- NOTE | 2022-10-23 14:18 | ED.NEUROSD ---
HPI - Neuro Symptoms/Deficit <Abhinav Fernando MD - Last Filed: 11/05/22 09:02> General Chief Complaint: Neuro Symptoms/Deficit Stated Complaint: CT ref. base off image of head CT result t-0 Time Seen by Provider: 10/23/22 14:15 Source: patient and family Mode of arrival: Wheelchair History of Present Illness HPI Narrative: Patient here with . Sent here from Radiology Department for right frontal parenchymal bleed on CT of the head. No midline shift. Patient has GCS of 15 NIH score of 0. Patient and states symptoms started this past Wednesday with left-sided weakness. Patient is not on any blood thinners. Patient in no distress at this time. Blood pressure noted. [facility] stroke team contacted. On Anticoagulants: No Related Data Home Medications Medication Instructions Recorded Confirmed ResMed AirSense 10 CPAP #1 ea 04/28/18 10/29/22 Previous Rx's Medication Instructions Recorded fenofibrate 54 mg tablet See Rx Instructions .Route 06/08/22 .COMPLEX #90 tabs omeprazole 20 mg capsule,delayed 20 mg PO DAILY #90 caps 07/17/22 release Diabled Parking Permit #1 ea 08/11/22 cyclobenzaprine 10 mg tablet 10 mg PO TID PRN muscle spasm #30 08/11/22 tabs hydrochlorothiazide 25 mg tablet 25 mg PO DAILY #30 tabs 10/02/22 propranolol 60 mg capsule,24 60 mg PO DAILY #30 caps 10/14/22 hr,extended release Allergies Allergy/AdvReac Type Severity Reaction Status Date / Time morphine [MORPHINE] Allergy Severe SWELLING Verified 10/29/22 11:49 atorvastatin [ATORVASTATIN] Allergy Intermediate Joint Pain Verified 10/29/22 11:49 simvastatin [SIMVASTATIN] Allergy Intermediate hives, Verified 10/29/22 11:49 itchiness, swelling, nausea ezetimibe [From ZETIA] AdvReac Intermediate Joint Pain Verified 10/29/22 11:49 Review of Systems <Abhinav Fernando MD - Last Filed: 11/05/22 09:02> Review of Systems Narrative: GENERAL: negative chills, fatigue, malaise, fever, sweats. HEENT: negative sinus pain, ear pain, sore throat RESPIRATORY: negative dyspnea, cough CARDIOVASCULAR: negative chest pain, palpitations GASTROINTESTINAL: negative nausea, vomiting, abdominal pain : negative dysuria, frequency, hematuria MUSCULOSKELETAL: negative muscle or bony pain SKIN: negative rash, skin lesions NEUROLOGIC: Positive weakness, negative numbness, negative slurred speech negative headache negative facial droop ROS Unobtainable: All systems reviewed & are unremarkable except as noted in HPI and below Hematologic/Lymphatic On Anticoagulants: No Patient History <Abhinav Fernando MD - Last Filed: 11/05/22 09:02> Medical History Adverse effect of anticholinergic Arthritis Balance problem Bilateral arm pain Bilateral shoulder pain Body posture problem BPPV (benign paroxysmal positional vertigo) Cervical somatic dysfunction COVID-19 virus infection (~05/2021) COVID-19 virus infection (~07/29/21) Dry eyes Essential tremor Excessive daytime sleepiness Finger pain, left Foot joint stiffness, bilateral Frontal sinus pain GERD (gastroesophageal reflux disease) Hemorrhoids Hx of skin disorder Hyperlipidemia Hypertension Left shoulder pain Low back pain (~10/2016) Lumbar region somatic dysfunction Migraines Obesity (BMI 30-39.9) Obstructive sleep apnea of adult Onychomycosis Osteopenia (~2008) Patient has active physician orders for life-sustaining treatment (POLST) form Pelvic somatic dysfunction Prolonged QT interval Rash and nonspecific skin eruption Sacral region somatic dysfunction Sleep apnea Thoracic region somatic dysfunction Toe pain, left Upper extremity somatic dysfunction Vertigo Surgical History History of knee replacement History of total abdominal hysterectomy and bilateral salpingo-oophorectomy Hx of hemorrhoidectomy Hx of hernia repair Hx of vaginal surgery Family History Mother Cancer Father No problems noted. Social History marital status: details: naz Winston, lives in [place] household members: spouse lives independently: Yes caregiver/support person: No housing: house Smoking Status: Never smoker alcohol intake: current Smoking Status: Never smoker alcohol intake frequency: 0-2 drinks per day Substance Use Type: does not use Exam <Abhinav Fernando MD - Last Filed: 11/05/22 09:02> Narrative Exam Narrative: GENERAL: in no distress, not toxic not dyspneic HEAD: Normocephalic. EYES: Pupils equal round ENT: Mucous membranes moist. NECK: Trachea midline. CARDIOVASCULAR: Regular rate and rhythm RESPIRATORY: Clear to auscultation. Breath sounds equal bilaterally. No wheezes, rales, or rhonchi. GASTROINTESTINAL: Abdomen soft, non-tender EXTREMITIES: No gross deformities. BACK: No flank tenderness. NEURO: AOx4. Clear speech no facial droop light touch intact bilateral face hands and legs. Negative pronator drift. Strong equal body shop technician. Strong bilateral patellar reflexes as well as light touch intact to legs. [id number] intact bilaterally SKIN: Warm and dry PSYCH: Not anxious, is cooperative Initial Vital Signs Initial Vital Signs: Vital Signs Pulse Rate 60 10/23/22 13:53 Pulse Oximetry 97 10/23/22 13:53 <Sudhir Meier DO - Last Filed: 10/24/22 00:25> Initial Vital Signs Initial Vital Signs: Vital Signs Pulse Rate 60 10/23/22 13:53 Pulse Oximetry 97 10/23/22 13:53 Scores <Abhinav Fernando MD - Last Filed: 11/05/22 09:02> NIH Stroke Scale Level of Conciousness: Alert, keenly responsive Ask month/age: Answers both questions correctly. Open/close eyes, close hand: Performs both tasks correctly Best gaze horizontal: Normal Visual mckay: No visual loss Facial palsy: Normal symetrical movement Left arm drift: No drift for full 10 sec Right arm drift: No drift for full 10 sec Left leg drift: No drift for full 5 sec Right leg drift: No drift for full 5 sec Limb ataxia: Absent Sensory on face/arms/legs: Normal, no sensory loss Best language: No aphasia, normal Dysarthria: Normal Extinction or inattention: No abnormality Total NIH Stroke scale score: 0 <Sudhir Meier DO - Last Filed: 10/24/22 00:25> NIH Stroke Scale Total NIH Stroke scale score: 0 Course <Abhinav Fernando MD - Last Filed: 11/05/22 09:02> Orders Ordered: Discontinued Medications Nicardipine HCl 25 mg/ Sodium (Chloride) 250 mls @ 50 mls/hr IV TITRATE NELLY; Protocol Last Admin: 10/24/22 00:48 Dose: 2.5 mg/hr, 25 mls/hr Documented By: Titration: 10/24/22 00:48 Dose: 2.5 mg/hr, 25 mls/hr Documented By: Titration: 10/23/22 18:30 Dose: 2.5 mg/hr, 25 mls/hr Documented By: Titration: 10/23/22 16:58 Dose: 0 mg/hr, 0 mls/hr Documented By: Titration: 10/23/22 16:29 Dose: 2.5 mg/hr, 25 mls/hr Documented By: Titration: 10/23/22 15:47 Dose: 5 mg/hr, 50 mls/hr Documented By: Titration: 10/23/22 15:05 Dose: 0 mg/hr, 0 mls/hr Documented By: Admin: 10/23/22 14:36 Dose: 5 mg/hr, 50 mls/hr Documented By: KIRBY Ondansetron HCl (Ondansetron 4 Mg Odt) 4 mg PO NOW PRN PRN Reason: Nausea And Vomiting Ondansetron HCl (Ondansetron 4 Mg/2 Ml Inj) 4 mg IV NOW PRN PRN Reason: Nausea And Vomiting Vital Signs Vital signs: Vital Signs - 8 hr 10/23/22 16:25 10/23/22 16:25 10/23/22 16:25 Pulse Rate 62 Respiratory Rate Blood Pressure 146/65 H 146/65 H Pulse Oximetry 97 10/23/22 16:30 10/23/22 16:30 10/23/22 16:30 Pulse Rate 64 Respiratory Rate Blood Pressure 151/72 H 151/72 H Pulse Oximetry 96 10/23/22 16:34 10/23/22 16:34 10/23/22 16:35 Pulse Rate 64 Respiratory Rate Blood Pressure 152/65 H 152/69 H Pulse Oximetry 97 10/23/22 16:35 10/23/22 16:36 10/23/22 16:36 Pulse Rate 63 62 Respiratory Rate Blood Pressure 152/68 H Pulse Oximetry 96 96 10/23/22 16:37 10/23/22 16:37 10/23/22 16:38 Pulse Rate 62 Respiratory Rate Blood Pressure 141/65 H 141/65 H Pulse Oximetry 98 10/23/22 16:38 10/23/22 16:39 10/23/22 16:39 Pulse Rate 62 62 Respiratory Rate Blood Pressure 140/64 Pulse Oximetry 97 96 10/23/22 16:40 10/23/22 16:40 10/23/22 16:41 Pulse Rate 62 Respiratory Rate Blood Pressure 146/67 H 144/60 H Pulse Oximetry 96 10/23/22 16:41 10/23/22 16:42 10/23/22 16:42 Pulse Rate 62 63 Respiratory Rate Blood Pressure 147/56 H Pulse Oximetry 98 97 10/23/22 16:43 10/23/22 16:43 10/23/22 16:44 Pulse Rate 63 Respiratory Rate Blood Pressure 151/69 H 142/66 H Pulse Oximetry 97 10/23/22 16:44 10/23/22 16:45 10/23/22 16:45 Pulse Rate 62 62 Respiratory Rate Blood Pressure 142/65 H Pulse Oximetry 97 96 10/23/22 16:46 10/23/22 16:46 10/23/22 16:50 Pulse Rate 63 63 Respiratory Rate Blood Pressure 139/60 Pulse Oximetry 97 96 10/23/22 16:55 10/23/22 17:00 10/23/22 17:05 Pulse Rate 63 66 62 Respiratory Rate Blood Pressure Pulse Oximetry 97 100 97 10/23/22 17:10 10/23/22 17:15 10/23/22 17:20 Pulse Rate 62 62 62 Respiratory Rate Blood Pressure 152/70 H Pulse Oximetry 96 97 97 10/23/22 17:22 10/23/22 17:22 10/23/22 17:25 Pulse Rate 61 62 Respiratory Rate Blood Pressure 152/70 H Pulse Oximetry 97 96 10/23/22 17:30 10/23/22 17:30 10/23/22 17:45 Pulse Rate 58 L Respiratory Rate Blood Pressure 145/67 H 155/70 H Pulse Oximetry 97 10/23/22 17:45 10/23/22 18:00 10/23/22 18:00 Pulse Rate 63 58 L Respiratory Rate Blood Pressure 153/71 H Pulse Oximetry 95 95 10/23/22 18:15 10/23/22 18:15 10/23/22 18:20 Pulse Rate 58 L 59 L Respiratory Rate Blood Pressure 165/64 H Pulse Oximetry 95 96 10/23/22 18:25 10/23/22 18:30 10/23/22 18:30 Pulse Rate 57 L 56 L Respiratory Rate Blood Pressure 151/70 H Pulse Oximetry 98 96 10/23/22 18:34 10/23/22 18:34 10/23/22 18:35 Pulse Rate 60 Respiratory Rate Blood Pressure 155/71 H 154/69 H Pulse Oximetry 97 10/23/22 18:35 10/23/22 18:36 10/23/22 18:36 Pulse Rate 58 L 57 L Respiratory Rate Blood Pressure 154/70 H Pulse Oximetry 97 98 10/23/22 18:37 10/23/22 18:37 10/23/22 18:38 Pulse Rate 57 L Respiratory Rate Blood Pressure 150/67 H 147/63 H Pulse Oximetry 97 10/23/22 18:38 10/23/22 18:40 10/23/22 18:40 Pulse Rate 57 L 58 L Respiratory Rate Blood Pressure 149/67 H Pulse Oximetry 96 96 10/23/22 18:45 10/23/22 18:45 10/23/22 18:50 Pulse Rate 60 Respiratory Rate Blood Pressure 155/72 H 154/71 H Pulse Oximetry 97 10/23/22 18:50 10/23/22 18:55 10/23/22 18:55 Pulse Rate 61 62 Respiratory Rate Blood Pressure 152/69 H Pulse Oximetry 97 96 10/23/22 19:00 10/23/22 19:00 10/23/22 19:05 Pulse Rate 61 Respiratory Rate Blood Pressure 153/68 H 151/67 H Pulse Oximetry 96 10/23/22 19:05 10/23/22 19:10 10/23/22 19:10 Pulse Rate 61 60 Respiratory Rate Blood Pressure 152/67 H Pulse Oximetry 95 95 10/23/22 19:15 10/23/22 19:15 10/23/22 19:20 Pulse Rate 61 63 Respiratory Rate Blood Pressure 150/68 H Pulse Oximetry 96 97 10/23/22 19:21 10/23/22 19:21 10/23/22 19:25 Pulse Rate 63 64 Respiratory Rate Blood Pressure 168/73 H Pulse Oximetry 97 96 10/23/22 19:44 10/23/22 19:45 10/23/22 19:45 Pulse Rate 64 66 Respiratory Rate Blood Pressure 168/90 H Pulse Oximetry 10/23/22 19:47 10/23/22 19:47 10/23/22 19:50 Pulse Rate 66 63 Respiratory Rate Blood Pressure 167/84 H Pulse Oximetry 99 10/23/22 19:51 10/23/22 19:51 10/23/22 19:55 Pulse Rate 61 Respiratory Rate Blood Pressure 162/70 H 175/77 H Pulse Oximetry 98 10/23/22 19:55 10/23/22 20:00 10/23/22 20:00 Pulse Rate 62 62 Respiratory Rate Blood Pressure 157/69 H Pulse Oximetry 99 96 10/23/22 20:05 10/23/22 20:05 10/23/22 20:10 Pulse Rate 61 Respiratory Rate 18 Blood Pressure 156/70 H 155/65 H Pulse Oximetry 95 10/23/22 20:10 10/23/22 20:15 10/23/22 20:15 Pulse Rate 61 62 Respiratory Rate Blood Pressure 162/67 H Pulse Oximetry 96 95 10/23/22 20:20 10/23/22 20:20 10/23/22 20:25 Pulse Rate 61 Respiratory Rate Blood Pressure 163/73 H 150/61 H Pulse Oximetry 98 10/23/22 20:25 10/23/22 20:30 10/23/22 20:30 Pulse Rate 61 61 Respiratory Rate Blood Pressure 157/70 H Pulse Oximetry 96 95 10/23/22 20:35 10/23/22 20:35 10/23/22 20:40 Pulse Rate 59 L Respiratory Rate Blood Pressure 152/68 H 167/75 H Pulse Oximetry 93 10/23/22 20:40 10/23/22 20:45 10/23/22 20:45 Pulse Rate 63 62 Respiratory Rate Blood Pressure 161/74 H Pulse Oximetry 95 96 10/23/22 20:50 10/23/22 20:50 10/23/22 20:55 Pulse Rate 62 Respiratory Rate Blood Pressure 157/65 H 178/74 H Pulse Oximetry 95 10/23/22 20:55 10/23/22 21:00 10/23/22 21:00 Pulse Rate 65 65 Respiratory Rate Blood Pressure 155/67 H Pulse Oximetry 99 94 10/23/22 21:05 10/23/22 21:05 10/23/22 21:10 Pulse Rate 63 Respiratory Rate Blood Pressure 153/67 H 182/77 H Pulse Oximetry 94 10/23/22 21:10 10/23/22 21:15 10/23/22 21:15 Pulse Rate 71 67 Respiratory Rate Blood Pressure 163/72 H Pulse Oximetry 95 94 10/23/22 21:20 10/23/22 21:20 10/23/22 21:25 Pulse Rate 63 65 Respiratory Rate Blood Pressure 158/70 H Pulse Oximetry 96 95 10/23/22 21:26 10/23/22 21:26 10/23/22 21:30 Pulse Rate 66 Respiratory Rate Blood Pressure 162/75 H 162/70 H Pulse Oximetry 95 10/23/22 21:30 10/23/22 21:35 10/23/22 21:36 Pulse Rate 64 64 Respiratory Rate Blood Pressure 169/90 H Pulse Oximetry 94 95 10/23/22 21:36 10/23/22 21:40 10/23/22 21:40 Pulse Rate 65 63 Respiratory Rate Blood Pressure 159/72 H Pulse Oximetry 94 95 10/23/22 21:45 10/23/22 21:45 10/23/22 21:50 Pulse Rate 65 Respiratory Rate Blood Pressure 160/73 H 161/74 H Pulse Oximetry 95 10/23/22 21:50 10/23/22 21:55 10/23/22 21:55 Pulse Rate 66 65 Respiratory Rate Blood Pressure 161/67 H Pulse Oximetry 94 94 10/23/22 22:00 10/23/22 22:00 10/23/22 22:05 Pulse Rate 64 Respiratory Rate Blood Pressure 158/69 H 159/72 H Pulse Oximetry 96 10/23/22 22:05 10/23/22 22:10 10/23/22 22:10 Pulse Rate 65 65 Respiratory Rate Blood Pressure 159/72 H Pulse Oximetry 95 96 10/23/22 22:15 10/23/22 22:16 10/23/22 22:20 Pulse Rate 66 63 Respiratory Rate Blood Pressure 154/59 H Pulse Oximetry 95 93 10/23/22 22:20 10/23/22 22:25 10/23/22 22:25 Pulse Rate 64 64 Respiratory Rate Blood Pressure 145/64 H Pulse Oximetry 93 94 10/23/22 22:30 10/23/22 22:30 Pulse Rate 63 Respiratory Rate Blood Pressure 140/64 Pulse Oximetry 93 <Sudhir Meier DO - Last Filed: 10/24/22 00:25> Orders Ordered: Discontinued Medications Nicardipine HCl 25 mg/ Sodium (Chloride) 250 mls @ 50 mls/hr IV TITRATE NELLY; Protocol Last Admin: 10/24/22 00:48 Dose: 2.5 mg/hr, 25 mls/hr Documented By: Titration: 10/24/22 00:48 Dose: 2.5 mg/hr, 25 mls/hr Documented By: Titration: 10/23/22 18:30 Dose: 2.5 mg/hr, 25 mls/hr Documented By: Titration: 10/23/22 16:58 Dose: 0 mg/hr, 0 mls/hr Documented By: Titration: 10/23/22 16:29 Dose: 2.5 mg/hr, 25 mls/hr Documented By: Titration: 10/23/22 15:47 Dose: 5 mg/hr, 50 mls/hr Documented By: Titration: 10/23/22 15:05 Dose: 0 mg/hr, 0 mls/hr Documented By: Admin: 10/23/22 14:36 Dose: 5 mg/hr, 50 mls/hr Documented By: MPO Ondansetron HCl (Ondansetron 4 Mg Odt) 4 mg PO NOW PRN PRN Reason: Nausea And Vomiting Ondansetron HCl (Ondansetron 4 Mg/2 Ml Inj) 4 mg IV NOW PRN PRN Reason: Nausea And Vomiting Vital Signs Vital signs: Vital Signs - 8 hr 10/23/22 16:25 10/23/22 16:25 10/23/22 16:25 Pulse Rate 62 Respiratory Rate Blood Pressure 146/65 H 146/65 H Pulse Oximetry 97 10/23/22 16:30 10/23/22 16:30 10/23/22 16:30 Pulse Rate 64 Respiratory Rate Blood Pressure 151/72 H 151/72 H Pulse Oximetry 96 10/23/22 16:34 10/23/22 16:34 10/23/22 16:35 Pulse Rate 64 Respiratory Rate Blood Pressure 152/65 H 152/69 H Pulse Oximetry 97 10/23/22 16:35 10/23/22 16:36 10/23/22 16:36 Pulse Rate 63 62 Respiratory Rate Blood Pressure 152/68 H Pulse Oximetry 96 96 10/23/22 16:37 10/23/22 16:37 10/23/22 16:38 Pulse Rate 62 Respiratory Rate Blood Pressure 141/65 H 141/65 H Pulse Oximetry 98 10/23/22 16:38 10/23/22 16:39 10/23/22 16:39 Pulse Rate 62 62 Respiratory Rate Blood Pressure 140/64 Pulse Oximetry 97 96 10/23/22 16:40 10/23/22 16:40 10/23/22 16:41 Pulse Rate 62 Respiratory Rate Blood Pressure 146/67 H 144/60 H Pulse Oximetry 96 10/23/22 16:41 10/23/22 16:42 10/23/22 16:42 Pulse Rate 62 63 Respiratory Rate Blood Pressure 147/56 H Pulse Oximetry 98 97 10/23/22 16:43 10/23/22 16:43 10/23/22 16:44 Pulse Rate 63 Respiratory Rate Blood Pressure 151/69 H 142/66 H Pulse Oximetry 97 10/23/22 16:44 10/23/22 16:45 10/23/22 16:45 Pulse Rate 62 62 Respiratory Rate Blood Pressure 142/65 H Pulse Oximetry 97 96 10/23/22 16:46 10/23/22 16:46 10/23/22 16:50 Pulse Rate 63 63 Respiratory Rate Blood Pressure 139/60 Pulse Oximetry 97 96 10/23/22 16:55 10/23/22 17:00 10/23/22 17:05 Pulse Rate 63 66 62 Respiratory Rate Blood Pressure Pulse Oximetry 97 100 97 10/23/22 17:10 10/23/22 17:15 10/23/22 17:20 Pulse Rate 62 62 62 Respiratory Rate Blood Pressure 152/70 H Pulse Oximetry 96 97 97 10/23/22 17:22 10/23/22 17:22 10/23/22 17:25 Pulse Rate 61 62 Respiratory Rate Blood Pressure 152/70 H Pulse Oximetry 97 96 10/23/22 17:30 10/23/22 17:30 10/23/22 17:45 Pulse Rate 58 L Respiratory Rate Blood Pressure 145/67 H 155/70 H Pulse Oximetry 97 10/23/22 17:45 10/23/22 18:00 10/23/22 18:00 Pulse Rate 63 58 L Respiratory Rate Blood Pressure 153/71 H Pulse Oximetry 95 95 10/23/22 18:15 10/23/22 18:15 10/23/22 18:20 Pulse Rate 58 L 59 L Respiratory Rate Blood Pressure 165/64 H Pulse Oximetry 95 96 10/23/22 18:25 10/23/22 18:30 10/23/22 18:30 Pulse Rate 57 L 56 L Respiratory Rate Blood Pressure 151/70 H Pulse Oximetry 98 96 10/23/22 18:34 10/23/22 18:34 10/23/22 18:35 Pulse Rate 60 Respiratory Rate Blood Pressure 155/71 H 154/69 H Pulse Oximetry 97 10/23/22 18:35 10/23/22 18:36 10/23/22 18:36 Pulse Rate 58 L 57 L Respiratory Rate Blood Pressure 154/70 H Pulse Oximetry 97 98 10/23/22 18:37 10/23/22 18:37 10/23/22 18:38 Pulse Rate 57 L Respiratory Rate Blood Pressure 150/67 H 147/63 H Pulse Oximetry 97 10/23/22 18:38 10/23/22 18:40 10/23/22 18:40 Pulse Rate 57 L 58 L Respiratory Rate Blood Pressure 149/67 H Pulse Oximetry 96 96 10/23/22 18:45 10/23/22 18:45 10/23/22 18:50 Pulse Rate 60 Respiratory Rate Blood Pressure 155/72 H 154/71 H Pulse Oximetry 97 10/23/22 18:50 10/23/22 18:55 10/23/22 18:55 Pulse Rate 61 62 Respiratory Rate Blood Pressure 152/69 H Pulse Oximetry 97 96 10/23/22 19:00 10/23/22 19:00 10/23/22 19:05 Pulse Rate 61 Respiratory Rate Blood Pressure 153/68 H 151/67 H Pulse Oximetry 96 10/23/22 19:05 10/23/22 19:10 10/23/22 19:10 Pulse Rate 61 60 Respiratory Rate Blood Pressure 152/67 H Pulse Oximetry 95 95 10/23/22 19:15 10/23/22 19:15 10/23/22 19:20 Pulse Rate 61 63 Respiratory Rate Blood Pressure 150/68 H Pulse Oximetry 96 97 10/23/22 19:21 10/23/22 19:21 10/23/22 19:25 Pulse Rate 63 64 Respiratory Rate Blood Pressure 168/73 H Pulse Oximetry 97 96 10/23/22 19:44 10/23/22 19:45 10/23/22 19:45 Pulse Rate 64 66 Respiratory Rate Blood Pressure 168/90 H Pulse Oximetry 10/23/22 19:47 10/23/22 19:47 10/23/22 19:50 Pulse Rate 66 63 Respiratory Rate Blood Pressure 167/84 H Pulse Oximetry 99 10/23/22 19:51 10/23/22 19:51 10/23/22 19:55 Pulse Rate 61 Respiratory Rate Blood Pressure 162/70 H 175/77 H Pulse Oximetry 98 10/23/22 19:55 10/23/22 20:00 10/23/22 20:00 Pulse Rate 62 62 Respiratory Rate Blood Pressure 157/69 H Pulse Oximetry 99 96 10/23/22 20:05 10/23/22 20:05 10/23/22 20:10 Pulse Rate 61 Respiratory Rate 18 Blood Pressure 156/70 H 155/65 H Pulse Oximetry 95 10/23/22 20:10 10/23/22 20:15 10/23/22 20:15 Pulse Rate 61 62 Respiratory Rate Blood Pressure 162/67 H Pulse Oximetry 96 95 10/23/22 20:20 10/23/22 20:20 10/23/22 20:25 Pulse Rate 61 Respiratory Rate Blood Pressure 163/73 H 150/61 H Pulse Oximetry 98 10/23/22 20:25 10/23/22 20:30 10/23/22 20:30 Pulse Rate 61 61 Respiratory Rate Blood Pressure 157/70 H Pulse Oximetry 96 95 10/23/22 20:35 10/23/22 20:35 10/23/22 20:40 Pulse Rate 59 L Respiratory Rate Blood Pressure 152/68 H 167/75 H Pulse Oximetry 93 10/23/22 20:40 10/23/22 20:45 10/23/22 20:45 Pulse Rate 63 62 Respiratory Rate Blood Pressure 161/74 H Pulse Oximetry 95 96 10/23/22 20:50 10/23/22 20:50 10/23/22 20:55 Pulse Rate 62 Respiratory Rate Blood Pressure 157/65 H 178/74 H Pulse Oximetry 95 10/23/22 20:55 10/23/22 21:00 10/23/22 21:00 Pulse Rate 65 65 Respiratory Rate Blood Pressure 155/67 H Pulse Oximetry 99 94 10/23/22 21:05 10/23/22 21:05 10/23/22 21:10 Pulse Rate 63 Respiratory Rate Blood Pressure 153/67 H 182/77 H Pulse Oximetry 94 10/23/22 21:10 10/23/22 21:15 10/23/22 21:15 Pulse Rate 71 67 Respiratory Rate Blood Pressure 163/72 H Pulse Oximetry 95 94 10/23/22 21:20 10/23/22 21:20 10/23/22 21:25 Pulse Rate 63 65 Respiratory Rate Blood Pressure 158/70 H Pulse Oximetry 96 95 10/23/22 21:26 10/23/22 21:26 10/23/22 21:30 Pulse Rate 66 Respiratory Rate Blood Pressure 162/75 H 162/70 H Pulse Oximetry 95 10/23/22 21:30 10/23/22 21:35 10/23/22 21:36 Pulse Rate 64 64 Respiratory Rate Blood Pressure 169/90 H Pulse Oximetry 94 95 10/23/22 21:36 10/23/22 21:40 10/23/22 21:40 Pulse Rate 65 63 Respiratory Rate Blood Pressure 159/72 H Pulse Oximetry 94 95 10/23/22 21:45 10/23/22 21:45 10/23/22 21:50 Pulse Rate 65 Respiratory Rate Blood Pressure 160/73 H 161/74 H Pulse Oximetry 95 10/23/22 21:50 10/23/22 21:55 10/23/22 21:55 Pulse Rate 66 65 Respiratory Rate Blood Pressure 161/67 H Pulse Oximetry 94 94 10/23/22 22:00 10/23/22 22:00 10/23/22 22:05 Pulse Rate 64 Respiratory Rate Blood Pressure 158/69 H 159/72 H Pulse Oximetry 96 10/23/22 22:05 10/23/22 22:10 10/23/22 22:10 Pulse Rate 65 65 Respiratory Rate Blood Pressure 159/72 H Pulse Oximetry 95 96 10/23/22 22:15 10/23/22 22:16 10/23/22 22:20 Pulse Rate 66 63 Respiratory Rate Blood Pressure 154/59 H Pulse Oximetry 95 93 10/23/22 22:20 10/23/22 22:25 10/23/22 22:25 Pulse Rate 64 64 Respiratory Rate Blood Pressure 145/64 H Pulse Oximetry 93 94 10/23/22 22:30 10/23/22 22:30 Pulse Rate 63 Respiratory Rate Blood Pressure 140/64 Pulse Oximetry 93 MDM - Neuro Symptoms/Deficit <Abhinav Fernando MD - Last Filed: 11/05/22 09:02> Lab Data 10/23/22 14:00 10/23/22 14:00 Labs: Lab Results 10/23/22 10/23/22 10/23/22 Range/Units 14:00 14:00 14:00 WBC 7.4 (4.5-11.0) X10^3/uL RBC 4.22 (4.0-5.2) X10^6/uL Hgb 13.4 (12.0-16.0) g/dL Hct 38.2 (36-46) % MCV 90.4 (80-100) fL MCH 31.8 (26-34) PG MCHC 35.2 (30-36) % RDW 12.5 (11.6-14.8) % Plt Count 388 (150-400) X10^3/uL Neut % (Auto) 66.1 (50-75) % Lymph % (Auto) 22.2 L (25-40) % Hemphill % (Auto) 9.1 (3-14) % Eos % (Auto) 1.7 L (2-4) % Baso % (Auto) 0.9 (0-2) % Neut # (Auto) 4900 (4165-8014) /uL Lymph # (Auto) 1600 (9709-5007) /uL [place]ill # (Auto) 700 (0-900) /uL Eos # (Auto) 100 (0-450) /uL Baso # (Auto) 100 (0-100) /uL PT 12.7 (10.1-12.7) SECONDS INR 1.1 (0.9-1.3) Sodium 137 (137-145) mmol/L Potassium 3.7 (3.4-5.1) mmol/L Chloride 101 (98-107) mmol/L Carbon Dioxide 26 (22-32) mmol/L BUN 19 H (7-17) mg/dL Creatinine 1.02 (0.52-1.04) mg/dL Estimated GFR 55 L (>60) mL/min BUN/Creatinine Ratio 18.6 (6-22) Glucose 121 H (80-110) mg/dL Calcium 9.7 (8.4-10.2) mg/dL Total Bilirubin 0.5 (0.2-1.3) mg/dL AST 38 H (14-36) IU/L ALT 25 (<35) IU/L Alkaline Phosphatase 64 (38-126) U/L Total Protein 8.7 H (6.3-8.2) g/dL Albumin 4.7 (3.5-5.0) g/dL Globulin 4.0 (1.7-4.1) g/dL Albumin/Globulin Ratio 1.2 (1.0-2.8) Lipase 87 (23-300) U/L Urine Color Urine Appearance Urine pH (4.5-8.0) Ur Specific [place] (1.000-1.035) Urine Protein (Negative) Urine Glucose (UA) (Negative) g/dL Urine Ketones (NEGATIVE) Urine Occult Blood (Negative) Urine Nitrate (Negative) Urine Bilirubin (NEGATIVE) Urine Urobilinogen (0.2) E.U./dL Ur Leukocyte Esterase (NEGATIVE) Urine RBC (0-5/HPF) Urine WBC (0-5/HPF) Ur Squamous Epith Cells (0-5/HPF) Urine Bacteria (None) Ur Culture Indicated? SARS-CoV-2 (PCR) (Negative) 10/23/22 10/23/22 Range/Units 14:13 15:53 WBC (4.5-11.0) X10^3/uL RBC (4.0-5.2) X10^6/uL Hgb (12.0-16.0) g/dL Hct (36-46) % MCV (80-100) fL MCH (26-34) PG MCHC (30-36) % RDW (11.6-14.8) % Plt Count (150-400) X10^3/uL Neut % (Auto) (50-75) % Lymph % (Auto) (25-40) % [place] % (Auto) (3-14) % Eos % (Auto) (2-4) % Baso % (Auto) (0-2) % Neut # (Auto) (3354-7356) /uL Lymph # (Auto) (5540-9472) /uL [place] # (Auto) (0-900) /uL Eos # (Auto) (0-450) /uL Baso # (Auto) (0-100) /uL PT (10.1-12.7) SECONDS INR (0.9-1.3) Sodium (137-145) mmol/L Potassium (3.4-5.1) mmol/L Chloride (98-107) mmol/L Carbon Dioxide (22-32) mmol/L BUN (7-17) mg/dL Creatinine (0.52-1.04) mg/dL Estimated GFR (>60) mL/min BUN/Creatinine Ratio (6-22) Glucose (80-110) mg/dL Calcium (8.4-10.2) mg/dL Total Bilirubin (0.2-1.3) mg/dL AST (14-36) IU/L ALT (<35) IU/L Alkaline Phosphatase (38-126) U/L Total Protein (6.3-8.2) g/dL Albumin (3.5-5.0) g/dL Globulin (1.7-4.1) g/dL Albumin/Globulin Ratio (1.0-2.8) Lipase (23-300) U/L Urine Color Yellow Urine Appearance Clear Urine pH 7.0 (4.5-8.0) Ur Specific [place] 1.010 (1.000-1.035) Urine Protein Negative (Negative) Urine Glucose (UA) Negative (Negative) g/dL Urine Ketones Negative (NEGATIVE) Urine Occult Blood Negative (Negative) Urine Nitrate Negative (Negative) Urine Bilirubin Negative (NEGATIVE) Urine Urobilinogen 0.2 (0.2) E.U./dL Ur Leukocyte Esterase Trace H (NEGATIVE) Urine RBC None seen (0-5/HPF) Urine WBC 0-1/hpf (0-5/HPF) Ur Squamous Epith Cells 0-1 /hpf (0-5/HPF) Urine Bacteria Occasional (0-1) (None) Ur Culture Indicated? Specimen cultured SARS-CoV-2 (PCR) Negative (Negative) Imaging Data CT scan - head: Radiologist's Impression: [address] [address] [address] Scan Report Signed Patient: Jenifer De La Cruz MR#: [id number] : 1940 Acct:[id number] Age/Sex: 82 / F Date of Service: 10/23/22 Loc: CT Accession Number: [id number] ?? Procedure: CT head/brain wo con Ordering Provider: Bubba Duggan PROCEDURE:? CT HEAD/BRAIN WO CON ? INDICATIONS:? Lt sided weakness ? TECHNIQUE:? Noncontrast 4.5 mm thick angled axial sections acquired from the foramen magnum to the vertex, with coronal and sagittal reformats.? For radiation dose reduction, the following was used:? automated exposure control, adjustment of mA and/or kV according to patient size.? ? COMPARISON:? [facility], CR, XR CHEST 1V, 10/19/2022, 8:09.? [facility], CT, CT HEAD/BRAIN WO CON, 09/22/2021, 19:24. ? FINDINGS:? Image quality:? Excellent.? ? CSF spaces:? Basal cisterns are patent.? No extra-axial fluid collections.? The ventricles are symmetric in size and shape.? ? Brain:? Acute intracranial hemorrhage can be seen within the superior medial aspect of the right frontal lobe.? The hemorrhage measures up to 2.3 cm.? Moderate surrounding edema is seen.? Mild associated mass effect is seen.? No midline shift. ? No intracranial bleeds or masses.? There is cerebral volume loss for age, with resultant ventricular and sulcal prominence.? There are periventricular and deep white matter chronic small vessel ischemic changes.? There is intracranial internal carotid artery atherosclerosis.? ? Skull and face:? Calvarium and visualized facial bones appear intact, without suspicious lesions.? ? Sinuses:? Visualized sinuses and mastoids are clear.? ? IMPRESSION:? Acute intraparenchymal hemorrhage seen involving the right frontal lobe superiorly and medially. ? Moderate surrounding edema is seen.? ? There is mild mass effect, yet without midline shift.? ? Note:? Dr. Duggan was not available to discuss this case at the time of this dictation.? Case discussed by telephone with triage nurse Cecilia, at 12:45 p.m. [place] time on October 23, 2022, who will relay the findings to Dr. Duggan. ? Case also discussed by telephone with Dr. Fernando at 12:46 p.m. [place] time on October 23, 2022.? ? ? Dictated by: Yohannes Landin M.D. on 10/23/2022 at 12:33 ? ? Approved by: Yohannes Landin M.D. on 10/23/2022 at 12:48 ? MDM Narrative Medical decision making narrative: Patient here with . Sent here from Radiology Department for right frontal parenchymal bleed on CT of the head. No midline shift. Patient has GCS of 15 NIH score of 0. Patient and states symptoms started this past Wednesday with left-sided weakness. Patient is not on any blood thinners. Patient in no distress at this time. Blood pressure noted. [facility] stroke team contacted. After history and exam consult stroke team, CBC CMP coags EKG [facility] CC: Left side weakness Complicating co-morbidities: High blood pressure Data collected from: Patient and Medical records reviewed: No prior history of stroke Differential considered: Includes but not limited to stroke brain tumor head bleed Exam documented above, pertinent findings include: No focal deficits Lab Test results independently reviewed as above. Pertinent findings: WBC 7.4 and hemoglobin 13.4 INR 1.1 GFR 55 negative COVID Independently reviewed EKG sinus bradycardia rate [address] elevation or depression Imaging studies independently reviewed: CT head frontal lobe right side bleed Consultations: 2:20 p.m.. Spoke with [facility] stroke team, Dr. Velez. He will call back when he is able to see the CT imaging that we pushed down. He will also speak with his attending physician. 2:47 p.m.. Spoke with [facility] neurology stroke team dr velez,, recommends MRI brain stroke protocol blood sequence as well as MRA brain. Need to transfer patient to facility with neurology for observation. No neurosurgical services indicated at this time There are no beds available at [facility] maintain blood pressure less than 160 systolic Spoke with [facility] tank house operator, no beds at this time. 5:24 p.m. spoke with [facility], neurologist, dr garcia, at this time no neurology intervention. Will need blood pressure control with internal medicine/hospitalist, who recommends neurosurgery to be involved. Transfer center is going to page Neurosurgery to call back Treatments: Nicardipine drip Re-evaluations: Discussion: Diagnosis: Hemorrhagic stroke 6:00 p.m. Abdullahi: Sign out to Dr Meier, repeat CT imaging pending. Patient awaiting for receiving Hospital, no beds available at this time. Blood pressure has improved. Currently patient off of nicardipine drip <Sudhir Meier, DO - Last Filed: 10/24/22 00:25> Lab Data Labs: Lab Results 10/23/22 10/23/22 10/23/22 Range/Units 14:00 14:00 14:00 WBC 7.4 (4.5-11.0) X10^3/uL RBC 4.22 (4.0-5.2) X10^6/uL Hgb 13.4 (12.0-16.0) g/dL Hct 38.2 (36-46) % MCV 90.4 (80-100) fL MCH 31.8 (26-34) PG MCHC 35.2 (30-36) % RDW 12.5 (11.6-14.8) % Plt Count 388 (150-400) X10^3/uL Neut % (Auto) 66.1 (50-75) % Lymph % (Auto) 22.2 L (25-40) % [place] % (Auto) 9.1 (3-14) % Eos % (Auto) 1.7 L (2-4) % Baso % (Auto) 0.9 (0-2) % Neut # (Auto) 4900 (2012-8290) /uL Lymph # (Auto) 1600 (9689-8674) /uL Hemphill # (Auto) 700 (0-900) /uL Eos # (Auto) 100 (0-450) /uL Baso # (Auto) 100 (0-100) /uL PT 12.7 (10.1-12.7) SECONDS INR 1.1 (0.9-1.3) Sodium 137 (137-145) mmol/L Potassium 3.7 (3.4-5.1) mmol/L Chloride 101 (98-107) mmol/L Carbon Dioxide 26 (22-32) mmol/L BUN 19 H (7-17) mg/dL Creatinine 1.02 (0.52-1.04) mg/dL Estimated GFR 55 L (>60) mL/min BUN/Creatinine Ratio 18.6 (6-22) Glucose 121 H (80-110) mg/dL Calcium 9.7 (8.4-10.2) mg/dL Total Bilirubin 0.5 (0.2-1.3) mg/dL AST 38 H (14-36) IU/L ALT 25 (<35) IU/L Alkaline Phosphatase 64 (38-126) U/L Total Protein 8.7 H (6.3-8.2) g/dL Albumin 4.7 (3.5-5.0) g/dL Globulin 4.0 (1.7-4.1) g/dL Albumin/Globulin Ratio 1.2 (1.0-2.8) Lipase 87 (23-300) U/L Urine Color Urine Appearance Urine pH (4.5-8.0) Ur Specific Cl[place] (1.000-1.035) Urine Protein (Negative) Urine Glucose (UA) (Negative) g/dL Urine Ketones (NEGATIVE) Urine Occult Blood (Negative) Urine Nitrate (Negative) Urine Bilirubin (NEGATIVE) Urine Urobilinogen (0.2) E.U./dL Ur Leukocyte Esterase (NEGATIVE) Urine RBC (0-5/HPF) Urine WBC (0-5/HPF) Ur Squamous Epith Cells (0-5/HPF) Urine Bacteria (None) Ur Culture Indicated? SARS-CoV-2 (PCR) (Negative) 10/23/22 10/23/22 Range/Units 14:13 15:53 WBC (4.5-11.0) X10^3/uL RBC (4.0-5.2) X10^6/uL Hgb (12.0-16.0) g/dL Hct (36-46) % MCV (80-100) fL MCH (26-34) PG MCHC (30-36) % RDW (11.6-14.8) % Plt Count (150-400) X10^3/uL Neut % (Auto) (50-75) % Lymph % (Auto) (25-40) % [place] % (Auto) (3-14) % Eos % (Auto) (2-4) % Baso % (Auto) (0-2) % Neut # (Auto) (3868-0406) /uL Lymph # (Auto) (3774-5586) /uL [place] # (Auto) (0-900) /uL Eos # (Auto) (0-450) /uL Baso # (Auto) (0-100) /uL PT (10.1-12.7) SECONDS INR (0.9-1.3) Sodium (137-145) mmol/L Potassium (3.4-5.1) mmol/L Chloride (98-107) mmol/L Carbon Dioxide (22-32) mmol/L BUN (7-17) mg/dL Creatinine (0.52-1.04) mg/dL Estimated GFR (>60) mL/min BUN/Creatinine Ratio (6-22) Glucose (80-110) mg/dL Calcium (8.4-10.2) mg/dL Total Bilirubin (0.2-1.3) mg/dL AST (14-36) IU/L ALT (<35) IU/L Alkaline Phosphatase (38-126) U/L Total Protein (6.3-8.2) g/dL Albumin (3.5-5.0) g/dL Globulin (1.7-4.1) g/dL Albumin/Globulin Ratio (1.0-2.8) Lipase (23-300) U/L Urine Color Yellow Urine Appearance Clear Urine pH 7.0 (4.5-8.0) Ur Specific [place] 1.010 (1.000-1.035) Urine Protein Negative (Negative) Urine Glucose (UA) Negative (Negative) g/dL Urine Ketones Negative (NEGATIVE) Urine Occult Blood Negative (Negative) Urine Nitrate Negative (Negative) Urine Bilirubin Negative (NEGATIVE) Urine Urobilinogen 0.2 (0.2) E.U./dL Ur Leukocyte Esterase Trace H (NEGATIVE) Urine RBC None seen (0-5/HPF) Urine WBC 0-1/hpf (0-5/HPF) Ur Squamous Epith Cells 0-1 /hpf (0-5/HPF) Urine Bacteria Occasional (0-1) (None) Ur Culture Indicated? Specimen cultured SARS-CoV-2 (PCR) Negative (Negative) Imaging Data repeat head CT: Radiologist's Impression: PROCEDURE:? CT HEAD/BRAIN WO CON ? INDICATIONS:? Monitor ICH. ? TECHNIQUE:? Noncontrast 4.5 mm thick angled axial sections acquired from the foramen magnum to the vertex, with coronal and sagittal reformats.? For radiation dose reduction, the following was used:? automated exposure control, adjustment of mA and/or kV according to patient size.? ? COMPARISON:? [facility], CT, CT HEAD/BRAIN WO CON, 10/23/2022, 13:21. ? FINDINGS:? Image quality:? Excellent.? ? CSF spaces:? Basal cisterns are patent.? No extra-axial fluid collections.? The ventricles are symmetric in size and shape.? ? Brain:? Acute intracranial hemorrhage within the superior medial aspect of the right frontal lobe which is unchanged in size compared to the prior study earlier today.? Surrounding edema is also unchanged.? No midline shift. ? Skull and face:? Calvarium and visualized facial bones appear intact, without suspicious lesions.? ? Sinuses:? Visualized sinuses and mastoids are clear.? ? IMPRESSION:? Acute intraparenchymal hemorrhage involving the superior medial aspect of the right frontal lobe with surrounding edema, unchanged compared to the prior study. ? brain MRI: Radiologist's Impression: PROCEDURE:? MR HEAD/BRAIN WO CON ? INDICATIONS:? head bleed/stroke ? TECHNIQUE:? Non-contrast axial T1 spin echo, axial T2 fast spin echo, sagittal and axial FLAIR, coronal T2 fast spin echo, axial gradient echo, axial diffusion and ADC through the brain.? ? COMPARISON:? [facility], CT, CT HEAD/BRAIN WO CON, 10/23/2022, 13:21. ? FINDINGS:? Image quality:? Excellent.? ? CSF spaces:? Ventricles appear symmetric in size and shape.? Basal cisterns are patent.? No extra-axial fluid collections.? ? Brain:? As seen by same-day CT, there is and intracranial hemorrhagic focus within the right superomedial frontal lobe, measuring roughly 22 mm diameter, which demonstrates moderate surrounding ill-defined FLAIR signal elevation, consistent with vasogenic edema. ?There is cerebral volume loss for age.? There are periventricular and deep white matter chronic small vessel ischemic changes.? Brainstem appears normal.? Diffusion-weighted images show no acute ischemic insults.? No chronic ischemic insults.? Normal intravascular flow voids are present.? ? Skull and face:? Calvarial bone marrow is normal in signal.? Orbits are normal.? ? Sinuses:? Sinuses and mastoids are clear.? ? IMPRESSION:? 1. No significant change in right frontal intracranial hemorrhage with surrounding edema, allowing for differences in modality. 2. No recent infarct. 3. Mild volume loss and small vessel ischemic disease. head MRA: Radiologist's Impression: PROCEDURE:? MR ANGIO HEAD WO CON ? INDICATIONS:? head bleed/stroke ? TECHNIQUE:? Noncontrast axial 3-D [id number] MR angiogram, with 3-dimensional maximum intensity projection (MIP) reformats of the internal carotid arteries and posterior circulation then performed.? ? COMPARISON:? None. ? FINDINGS:? Image quality:? Degraded by motion artifact. ? Anterior circulation:? Intracranial internal carotid arteries demonstrate normal size and intraluminal flow signal.? The flow within the paired anterior cerebral arteries is normal and symmetric.? The flow within the middle cerebral arteries is normal and symmetric.? The anterior communicating artery is seen.? No stenoses, occlusions, or aneurysms.? ? Posterior circulation:? Visualized portions of the vertebral arteries demonstrate normal caliber, and join to form a normal appearing basilar artery.? There are high-grade stenoses within the P1 segment and proximal P2 segment of the left posterior cerebral artery.? There are mild to moderate stenosis within the right P2 segment. ? IMPRESSION:? 1. 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 [facility] Narrative Medical decision making narrative: Patient here with . Sent here from Radiology Department for right frontal parenchymal bleed on CT of the head. No midline shift. Patient has GCS of 15 NIH score of 0. Patient and states symptoms started this past Wednesday with left-sided weakness. Patient is not on any blood thinners. Patient in no distress at this time. Blood pressure noted. [facility] stroke team contacted. After history and exam consult stroke team, CBC CMP coags EKG [facility] CC: Left side weakness Complicating co-morbidities: High blood pressure Data collected from: Patient and Medical records reviewed: No prior history of stroke Differential considered: Includes but not limited to stroke brain tumor head bleed Exam documented above, pertinent findings include: No focal deficits Lab Test results independently reviewed as above. Pertinent findings: WBC 7.4 and hemoglobin 13.4 INR 1.1 GFR 55 negative COVID Independently reviewed EKG sinus bradycardia rate [address] elevation or depression Imaging studies independently reviewed: CT head frontal lobe right side bleed Consultations: 2:20 p.m.. Spoke with [facility] stroke team, Dr. Velez. He will call back when he is able to see the CT imaging that we pushed down. He will also speak with his attending physician. 2:47 p.m.. Spoke with [facility] neurology stroke team dr velez,, recommends MRI brain stroke protocol blood sequence as well as MRA brain. Need to transfer patient to facility with neurology for observation. No neurosurgical services indicated at this time There are no beds available at [facility] maintain blood pressure less than 160 systolic Spoke with [facility] tank house operator, no beds at this time. 5:24 p.m. spoke with [facility], neurologist, dr garcia, at this time no neurology intervention. Will need blood pressure control with internal medicine/hospitalist, who recommends neurosurgery to be involved. Transfer center is going to page Neurosurgery to call back Treatments: Nicardipine drip Re-evaluations: Discussion: Diagnosis: Hemorrhagic stroke 6:00 p.m. Abdullahi: Sign out to Dr Meier, repeat CT imaging pending. Patient awaiting for receiving Hospital, no beds available at this time. Blood pressure has improved. Currently patient off of nicardipine drip Dr meier: Received turned over. Reviewed patient's history and physical and workup up to this point. Repeat head CT shows no worsening of the head bleed. She continues to be on nicardipine. I did discuss the case with Neurosurgery at [facility] in [place] who stated that they would be happy to follow along with there is no emergent need for surgery. Then discuss the case with Dr. Hendrix college physics instructor at [facility] who accepts the patient in transfer. Patient has been informed of the need for transfer. Patient is stable for transport. Critical Care Time <Abhinav Fernando MD - Last Filed: 11/05/22 09:02> Critical Care Time Attestation: Critical Care Time 35 minutes: Critical care time is separate from other billable procedures. This critical care time includes consultation with family and other consulting doctors, review of records, and interpretation of data from labs, EKGs, imaging, etc. Discharge Plan Departure Patient Disposition: [facility] Clinical Impression: Hemorrhagic stroke Prescriptions: No Action fenofibrate 54 mg tablet See Rx Instructions .ROUTE .COMPLEX Qty: 90 1RF Dose Instruction: TAKE ONE TABLET BY MOUTH ONE TIME DAILY Rx Instructions: TAKE ONE TABLET BY MOUTH ONE TIME DAILY omeprazole 20 mg capsule,delayed release(DR/EC) 20 mg PO DAILY Qty: 90 3RF hydrochlorothiazide 25 mg tablet 25 mg PO DAILY Qty: 30 0RF propranolol 60 mg capsule,extended release 24 hr 60 mg PO DAILY Qty: 30 0RF cyclobenzaprine 10 mg tablet 10 mg PO TID PRN (Reason: muscle spasm) Qty: 30 3RF (DME) Diabled Parking Permit See Rx Instructions .Route .MEDSUPPLY Qty: 1 0RF Rx Instructions: Valid for 5 years (DME) ResMed AirSense 10 CPAP Qty: 1 Dose Instruction: As directed Patient Comments: Pressure: 11-18 cmH2O DME: [facility] Rx Instructions: As directed Referrals: Stuart Kellogg DO [Primary Care Provider] -
[2022-10-23 14:19] LABS: INR 1.1 (0.9-1.3); Prothrombin Time 12.7 SECONDS (10.1-12.7)
--- NOTE | 2022-10-23 14:19 | PC.NURSE ---
reviewed pt's POLST form which does not indicate CPR vs DNR and notes Limited additional interventions. Discussed w/ both pt (who is a/o x 4) and her who is also a/o x 4. Pt states she wants to be a full code and explore all treatment options. Dr. Fernando made aware.
[2022-10-23 14:25] LABS: Alanine Aminotransferase 25 IU/L (<35); Albumin 4.7 g/dL (3.5-5.0); Albumin Globulin Ratio 1.2 (1.0-2.8); Alkaline Phosphatase 64 U/L (38-126); Aspartate Aminotransferase 38 IU/L (14-36); BUN Creatinine Ratio 18.6 (6-22); Bilirubin Total 0.5 mg/dL (0.2-1.3); Blood Urea Nitrogen 19 mg/dL (7-17); Calcium 9.7 mg/dL (8.4-10.2); Carbon Dioxide 26 mmol/L (22-32); Chloride 101 mmol/L (98-107); Estimated Glomerular Filt Rate 55 mL/min (>60); Glucose 121 mg/dL (80-110); HEMOLYSIS 21 (0-50); Lipase 87 U/L (23-300); Potassium 3.7 mmol/L (3.4-5.1); Sodium 137 mmol/L (137-145); Total Protein 8.7 g/dL (6.3-8.2)
[2022-10-23 14:31] LABS: COVID19 -Nasal RAPID Negative (Negative)
[2022-10-23] MEDS: NICARDIPINE 25 MG in SODIUM CHLORIDE 0.9% 240 ML 50 MG IV (14:36)
--- NOTE | 2022-10-23 14:50 | DI.MRI.S_ITS ---
PROCEDURE: MR HEAD/BRAIN WO CON INDICATIONS: head bleed/stroke TECHNIQUE: Non-contrast axial T1 spin echo, axial T2 fast spin echo, sagittal and axial FLAIR, coronal T2 fast spin echo, axial gradient echo, axial diffusion and ADC through the brain. COMPARISON: [facility], CT, CT HEAD/BRAIN WO CON, 10/23/2022, 13:21. FINDINGS: Image quality: Excellent. CSF spaces: Ventricles appear symmetric in size and shape. Basal cisterns are patent. No extra-axial fluid collections. Brain: As seen by same-day CT, there is and intracranial hemorrhagic focus within the right superomedial frontal lobe, measuring roughly 22 mm diameter, which demonstrates moderate surrounding ill-defined FLAIR signal elevation, consistent with vasogenic edema. There is cerebral volume loss for age. There are periventricular and deep white matter chronic small vessel ischemic changes. Brainstem appears normal. Diffusion-weighted images show no acute ischemic insults. No chronic ischemic insults. Normal intravascular flow voids are present. Skull and face: Calvarial bone marrow is normal in signal. Orbits are normal. Sinuses: Sinuses and mastoids are clear. IMPRESSION: 1. No significant change in right frontal intracranial hemorrhage with surrounding edema, allowing for differences in modality. 2. No recent infarct. 3. Mild volume loss and small vessel ischemic disease. Dictated by: Jim Blum M.D. on 10/23/2022 at 15:37 Approved by: Jim Blum M.D. on 10/23/2022 at 15:38
--- NOTE | 2022-10-23 14:50 | DI.MRI.S_ITS ---
PROCEDURE: MR ANGIO HEAD WO CON INDICATIONS: head bleed/stroke TECHNIQUE: Noncontrast axial 3-D [id number] MR angiogram, with 3-dimensional maximum intensity projection (MIP) reformats of the internal carotid arteries and posterior circulation then performed. COMPARISON: None. FINDINGS: Image quality: Degraded by motion artifact. Anterior circulation: Intracranial internal carotid arteries demonstrate normal size and intraluminal flow signal. The flow within the paired anterior cerebral arteries is normal and symmetric. The flow within the middle cerebral arteries is normal and symmetric. The anterior communicating artery is seen. No stenoses, occlusions, or aneurysms. Posterior circulation: Visualized portions of the vertebral arteries demonstrate normal caliber, and join to form a normal appearing basilar artery. There are high-grade stenoses within the P1 segment and proximal P2 segment of the left posterior cerebral artery. There are mild to moderate stenosis within the right P2 segment. IMPRESSION: 1. 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 Dictated by: Jim Blum M.D. on 10/23/2022 at 15:38 Approved by: Jim Blum M.D. on 10/23/2022 at 15:40
--- NOTE | 2022-10-23 15:32 | PC.NURSE ---
1504 dr villa aware that pt will be off nicardipine drip while at MRI.
--- NOTE | 2022-10-23 15:47 | PC.NURSE ---
pt returned from MRI. nicardipine restarted.
[2022-10-23 16:03] LABS: Appearance Urine UA CLEAR; Bilirubin Urine UA NEGATIVE (NEGATIVE); Color Urine UA YELLOW; Glucose Urine UA NEGATIVE (Negative); Ketones Urine UA NEGATIVE (NEGATIVE); Leukocyte Esterase Urine UA TRACE (NEGATIVE); Nitrite Urine UA NEGATIVE (Negative); Occult Blood Urine UA NEGATIVE (Negative); Protein Urine UA NEGATIVE (Negative); Urobilinogen Urine UA 0.2 E.U./dL (0.2)
[2022-10-23 16:12] LABS: Bacteria Urine Occasional (0-1); Culture Indicated Urine Specimen Cultured; RBC Urine None Seen (0-5/HPF); Squamous Epithelial Cell Urine 0-1 /HPF (0-5/HPF); WBC Urine 0-1/HPF (0-5/HPF)
--- NOTE | 2022-10-23 17:15 | PC.NURSE ---
SUPERVISOR WINTER Note: This SUPERVISOR WINTER attempted to search for available facilities to [facility] pt out and got the following responses: - [address] [facility] spoke with Mark at [facility] center: Pt on their waitlist. Facesheet and images sent. - 1629 Prov/ [place]: no bed availability for anyone who isn't already established with [facility]. - [address] [facility]: facility is at capacity and will not take anyone for now. Night SUSPENSION CORD TIER to call back in the evening to see if status changes. - [address] [facility] spoke with the fun house attendant Scott: Dr. Fernando spoke with the house sup. about the details of the case. Facesheet was sent and pt was put on their list. - 17[address] [facility] spoke with Justen and pt is put on their radar.
--- NOTE | 2022-10-23 19:30 | DI.CT.S_ITS ---
PROCEDURE: CT HEAD/BRAIN WO CON INDICATIONS: Monitor ICH. TECHNIQUE: Noncontrast 4.5 mm thick angled axial sections acquired from the foramen magnum to the vertex, with coronal and sagittal reformats. For radiation dose reduction, the following was used: automated exposure control, adjustment of mA and/or kV according to patient size. COMPARISON: [facility], CT, CT HEAD/BRAIN WO CON, 10/23/2022, 13:21. FINDINGS: Image quality: Excellent. CSF spaces: Basal cisterns are patent. No extra-axial fluid collections. The ventricles are symmetric in size and shape. Brain: Acute intracranial hemorrhage within the superior medial aspect of the right frontal lobe which is unchanged in size compared to the prior study earlier today. Surrounding edema is also unchanged. No midline shift. Skull and face: Calvarium and visualized facial bones appear intact, without suspicious lesions. Sinuses: Visualized sinuses and mastoids are clear. IMPRESSION: Acute intraparenchymal hemorrhage involving the superior medial aspect of the right frontal lobe with surrounding edema, unchanged compared to the prior study. Dictated by: Mariano Lu M.D. on 10/23/2022 at 19:51 Approved by: Mariano Lu M.D. on 10/23/2022 at 19:53
[2022-10-24] VITALS (11 sets, daily range): BP systolic 153; BP diastolic 70; PULSE 59–61; RESP 24–33; TEMP 36.6; O2SAT 93–96
[2022-10-24] MEDS: NICARDIPINE 25 MG in SODIUM CHLORIDE 0.9% 240 ML IV (00:48)
== END 2022-10-24 01:06 | disposition short-term general hospital (02) ==
PROVIDERS: Emergency Medicine; Emergency Provider Emergency Medicine; PCP Family Medicine
DX: I61.1 Nontraumatic intracerebral hemorrhage in hemisphere, cortical (principal); G93.6 Cerebral edema; R53.1 Weakness; N39.0 Urinary tract infection, site not specified; R26.89 Other abnormalities of gait and mobility; Z20.822 Contact with and (suspected) exposure to COVID-19
CPT/HCPCS: 36415; 70450; 70544; 70551; 80053; 81001; 83690; 85025; 85610; 87086; 87635; 93005; 93010; 96365; 96366; 99285; 99291; C9803

== ENCOUNTER → 2022-11-03 13:45 | Outpatient (CLI) | payer MEDICARE, SELFPAY ==
[2022-08-02 13:31] VITALS: BMI 32.1
[2022-11-03 14:59] LABS: BUN Creatinine Ratio 14.7 (6-22); Blood Urea Nitrogen 16 mg/dL (7-17); Calcium 10.6 mg/dL (8.4-10.2); Carbon Dioxide 28 mmol/L (22-32); Chloride 95 mmol/L (98-107); Estimated Glomerular Filt Rate 51 mL/min (>60); Glucose 103 mg/dL (80-110); HEMOLYSIS < 15 (0-50); Potassium 3.8 mmol/L (3.4-5.1); Sodium 132 mmol/L (137-145)
== END ==
PROVIDERS: PCP Family Medicine; Referring Provider Physician Assistant; Visit Provider Physician Assistant
DX: I10 Essential (primary) hypertension (principal)
CPT/HCPCS: 36415; 80048

== ENCOUNTER 2022-11-05 21:13 | Emergency (ER) | payer MEDICARE, SELFPAY ==
[2022-08-02 13:31] VITALS: BMI 32.1
[2022-11-05 21:15] VITALS: BP 162/70; PULSE 56; RESP 18; TEMP 36.9; O2SAT 99; BMI 31.8
--- NOTE | 2022-11-05 21:31 | DI.CT.S_ITS ---
PROCEDURE: CT HEAD/BRAIN WO CON INDICATIONS: fell/recent brain bleed TECHNIQUE: Noncontrast 4.5 mm thick angled axial sections acquired from the foramen magnum to the vertex, with coronal and sagittal reformats. For radiation dose reduction, the following was used: automated exposure control, adjustment of mA and/or kV according to patient size. COMPARISON: [facility], MR, MR HEAD/BRAIN WO CON, 10/23/2022, 14:54. [facility], CT, CT HEAD/BRAIN WO CON, 10/23/2022, 19:23. FINDINGS: Image quality: Excellent. CSF spaces: Basal cisterns are patent. No extra-axial fluid collections. There is mild cerebral volume loss, with resultant ventricular and sulcal prominence. Brain: No new intracranial hemorrhage, mass, or mass effect. There is a small residual subcortical hematoma in the medial right frontal lobe which is decreased compared to the prior study. There is mild adjacent vasogenic edema. There are subcortical, periventricular and deep white matter hypodensities consistent with chronic small vessel ischemic changes. The lopez-white matter junction appears preserved. Skull and face: Calvarium and visualized facial bones appear intact, without suspicious lesions. Sinuses: Visualized sinuses and mastoids are clear. IMPRESSION: 1. Small residual subcortical medial right frontal lobe hematoma decreased in size from the prior study. 2. No definite new acute intracranial abnormality. Dictated by: Cisco Bertrand M.D. on 11/05/2022 at 21:50 Approved by: Cisco Bertrand M.D. on 11/05/2022 at 21:52
--- NOTE | 2022-11-05 21:55 | DI.RAD.S_ITS ---
PROCEDURE: XR SHOULDER LT MIN 2V INDICATIONS: fall/pain TECHNIQUE: 3 views of the shoulder were acquired. COMPARISON: [facility], CR, XR SHOULDER LT MIN 2V, 10/23/2021, 11:09. FINDINGS: Bones: No fractures or dislocations. There is a left glenohumeral joint prosthesis redemonstrated. No suspicious periprosthetic lucencies. Visualized ribs appear intact. Soft tissues: No suspicious soft tissue calcifications. IMPRESSION: 1. No acute fracture or dislocation. Dictated by: Cisco Bertrand M.D. on 11/05/2022 at 23:21 Approved by: Cisco Bertrand M.D. on 11/05/2022 at 23:23
--- NOTE | 2022-11-05 23:39 | ED.FALL ---
HPI - Fall General Chief Complaint: Fall Stated Complaint: fall, head injury. recent brain bleed Time Seen by Provider: 11/05/22 23:39 Source: patient and family Mode of arrival: Wheelchair History of Present Illness HPI Narrative: Patient is an 82-year-old female who presents today after a fall. She has recently had a right frontal parenchymal bleed on 10/23/2022 where she was transferred up to [facility]. She was monitored in the ICU and blood pressure was better controlled and medication changed. Today she presents with a mechanical fall and left shoulder pain. She has been using a walker the brakes were not on she tripped hitting her head. No loss of consciousness no nausea or vomiting. Complaining again of left shoulder pain. Otherwise feeling in her normal state of health. She is not and has not been on anticoagulation. She also had a recent UTI on October 19. Related Data Home Medications Medication Instructions Recorded Confirmed ResMed AirSense 10 CPAP #1 ea 04/28/18 10/29/22 Previous Rx's Medication Instructions Recorded fenofibrate 54 mg tablet See Rx Instructions .Route 06/08/22 .COMPLEX #90 tabs omeprazole 20 mg capsule,delayed 20 mg PO DAILY #90 caps 07/17/22 release Diabled Parking Permit #1 ea 08/11/22 cyclobenzaprine 10 mg tablet 10 mg PO TID PRN muscle spasm #30 08/11/22 tabs hydrochlorothiazide 25 mg tablet 25 mg PO DAILY #30 tabs 10/02/22 propranolol 60 mg capsule,24 60 mg PO DAILY #30 caps 10/14/22 hr,extended release Allergies Allergy/AdvReac Type Severity Reaction Status Date / Time morphine [MORPHINE] Allergy Severe SWELLING Verified 10/29/22 11:49 atorvastatin [ATORVASTATIN] Allergy Intermediate Joint Pain Verified 10/29/22 11:49 simvastatin [SIMVASTATIN] Allergy Intermediate hives, Verified 10/29/22 11:49 itchiness, swelling, nausea ezetimibe [From ZETIA] AdvReac Intermediate Joint Pain Verified 10/29/22 11:49 Review of Systems Review of Systems ROS Unobtainable: All systems reviewed & are unremarkable except as noted in HPI and below Patient History Medical History Adverse effect of anticholinergic Arthritis Balance problem Bilateral arm pain Bilateral shoulder pain Body posture problem BPPV (benign paroxysmal positional vertigo) Cervical somatic dysfunction COVID-19 virus infection (~05/2021) COVID-19 virus infection (~07/29/21) Dry eyes Essential tremor Excessive daytime sleepiness Finger pain, left Foot joint stiffness, bilateral Frontal sinus pain GERD (gastroesophageal reflux disease) Hemorrhoids Hx of skin disorder Hyperlipidemia Hypertension Left shoulder pain Low back pain (~10/2016) Lumbar region somatic dysfunction Migraines Obesity (BMI 30-39.9) Obstructive sleep apnea of adult Onychomycosis Osteopenia (~2008) Patient has active physician orders for life-sustaining treatment (POLST) form Pelvic somatic dysfunction Prolonged QT interval Rash and nonspecific skin eruption Sacral region somatic dysfunction Sleep apnea Thoracic region somatic dysfunction Toe pain, left Upper extremity somatic dysfunction Vertigo Surgical History History of knee replacement History of total abdominal hysterectomy and bilateral salpingo-oophorectomy Hx of hemorrhoidectomy Hx of hernia repair Hx of vaginal surgery Family History Mother Cancer Father No problems noted. Social History marital status: details: naz Winston, lives in [place] household members: spouse lives independently: Yes caregiver/support person: No housing: house Smoking Status: Never smoker alcohol intake: current Smoking Status: Never smoker alcohol intake frequency: 0-2 drinks per day Substance Use Type: does not use Exam Initial Vital Signs Initial Vital Signs: Vital Signs Temperature 98.5 F 11/05/22 21:15 Pulse Rate 56 L 11/05/22 21:15 Respiratory Rate 18 11/05/22 21:15 Blood Pressure 162/70 H 11/05/22 21:15 Pulse Oximetry 99 11/05/22 21:15 Oxygen Delivery Method Room Air 11/05/22 21:15 GENERAL: Alert pleasant 82-year-old female HEENT: Head atraumatic,EOMI, pupils reactive, face symmetric, moist mucous membranes NECK: Supple no vertebral tenderness no step-offs CARDIOVASCULAR: Regular rate and rhythm without murmurs, rubs or gallops. RESPIRATORY: Breath sounds equal bilaterally, no wheezes rales or rhonchi. ABDOMEN: Soft, nontender. Normoactive bowel sounds all 4 quadrants. No guarding or rebound. EXTREMITIES: Normal range of motion, no clubbing or edema. Neurovascularly intact NEUROLOGICAL: Alert and oriented x4.Normal gait and speech. Cranial nerves II through XII grossly intact. [employer] strength equal bilaterally SKIN: Warm, dry, no laceration, no petechiae, no rashes or lesions. Scores GCS Ellsworth coma scale eye opening: Spontaneous Yfn coma scale verbal response: Orientated Yfn coma scale motor response: Obey commands Ellsworth coma scale total score: 15 Course Orders Ordered: ED Orders 11/05/22 21:31 CT head/brain wo con Stat 11/05/22 21:55 XR shoulder LT min 2V Stat Vital Signs Vital signs: Vital Signs - 8 hr 11/05/22 23:46 Blood Pressure 132/62 MDM - Fall Imaging Data CT scan - head: Radiologist's Impression: PROCEDURE:? CT HEAD/BRAIN WO CON ? INDICATIONS:? fell/recent brain bleed ? TECHNIQUE:? Noncontrast 4.5 mm thick angled axial sections acquired from the foramen magnum to the vertex, with coronal and sagittal reformats.? For radiation dose reduction, the following was used:? automated exposure control, adjustment of mA and/or kV according to patient size.? ? COMPARISON:? [facility], MR, MR HEAD/BRAIN WO CON, 10/23/2022, 14:54.? [facility], CT, CT HEAD/BRAIN WO CON, 10/23/2022, 19:23. ? FINDINGS:? Image quality:? Excellent.? ? CSF spaces:? Basal cisterns are patent.? No extra-axial fluid collections.? There is mild cerebral volume loss, with resultant ventricular and sulcal prominence.? ? Brain:? No new intracranial hemorrhage, mass, or mass effect.? There is a small residual subcortical hematoma in the medial right frontal lobe which is decreased compared to the prior study.? There is mild adjacent vasogenic edema.? There are subcortical, periventricular and deep white matter hypodensities consistent with chronic small vessel ischemic changes.? The lopez-white matter junction appears preserved.? ? Skull and face:? Calvarium and visualized facial bones appear intact, without suspicious lesions.? ? Sinuses:? Visualized sinuses and mastoids are clear.? ? IMPRESSION:? ? 1. Small residual subcortical medial right frontal lobe hematoma decreased in size from the prior study. ? 2. No definite new acute intracranial abnormality.? ? ? Dictated by: Cisco Bertrand M.D. on 11/05/2022 at 21:50 ? ? Extremity x-ray #1: Radiologist's Impression: PROCEDURE:? XR SHOULDER LT MIN 2V ? INDICATIONS:? fall/pain ? TECHNIQUE:? 3 views of the shoulder were acquired.? ? COMPARISON:? [facility], CR, XR SHOULDER LT MIN 2V, 10/23/2021, 11:09. ? FINDINGS:? ? Bones:? No fractures or dislocations.? There is a left glenohumeral joint prosthesis redemonstrated.? No suspicious periprosthetic lucencies.? Visualized ribs appear intact.? ? ? Soft tissues:? No suspicious soft tissue calcifications.? ? IMPRESSION:? ? 1. No acute fracture or dislocation. ? ? Dictated by: Cisco Bertrand M.D. on 11/05/2022 at 23:21 ? ? Approved by: Cisco Bertrand M.D. on 11/05/2022 at 23:23 ? MDM Narrative Medical decision making narrative: Patient 82-year-old female with recent history of intracranial hemorrhage presents today after mechanical fall trouble with her walker. Head CT is stable and slightly improved without acute bleeding. No neck pain. he is chronic left shoulder pain and weakness x-ray again is negative. At this time they are anxious to go home. Not requiring any pain medication they just wanting to make sure that the bleeding was not worse. Discharge Plan Departure Patient Disposition: Home Clinical Impression: Closed head injury Instructions: DI for Closed Head Injury Activity Restrictions/Additional Instructions: *You have been diagnosed with closed head injury *What to do: At this time no evidence of new bleeding. *Continue to take medications as directed *Follow up with your primary care provider in 2-3 days or call [phone] *Return to ER if you should have increased weakness vomiting numbness tingling or any new, worsening or concerning symptoms Prescriptions: No Action fenofibrate 54 mg tablet See Rx Instructions .ROUTE .COMPLEX Qty: 90 1RF Dose Instruction: TAKE ONE TABLET BY MOUTH ONE TIME DAILY Rx Instructions: TAKE ONE TABLET BY MOUTH ONE TIME DAILY omeprazole 20 mg capsule,delayed release(DR/EC) 20 mg PO DAILY Qty: 90 3RF hydrochlorothiazide 25 mg tablet 25 mg PO DAILY Qty: 30 0RF propranolol 60 mg capsule,extended release 24 hr 60 mg PO DAILY Qty: 30 0RF cyclobenzaprine 10 mg tablet 10 mg PO TID PRN (Reason: muscle spasm) Qty: 30 3RF (DME) Diabled Parking Permit See Rx Instructions .Route .MEDSUPPLY Qty: 1 0RF Rx Instructions: Valid for 5 years (DME) ResMed AirSense 10 CPAP Qty: 1 Dose Instruction: As directed Patient Comments: Pressure: 11-18 cmH2O DME: [facility] Rx Instructions: As directed Referrals: Stuart Kellogg DO [Primary Care Provider] - Stand Alone Forms: Patient Portal/API
[2022-11-05 23:46] VITALS: BP 132/62
== END 2022-11-06 00:02 | disposition home or self-care (01) ==
PROVIDERS: Emergency Provider Emergency Medicine; PCP Family Medicine
DX: S09.8XXA Other specified injuries of head, initial encounter (principal); M25.512 Pain in left shoulder; W01.10XA Fall on same level from slipping, tripping and stumbling with subsequent striking against unspecified object, initial encounter
CPT/HCPCS: 70450; 73030; 99283

== ENCOUNTER → 2022-11-12 14:14 | Outpatient (CLI) | payer MEDICARE, SELFPAY ==
[2022-08-02 13:31] VITALS: BMI 32.1
[2022-11-12 15:47] LABS: BUN Creatinine Ratio 14.8 (6-22); Blood Urea Nitrogen 16 mg/dL (7-17); Carbon Dioxide 25 mmol/L (22-32); Chloride 97 mmol/L (98-107); Estimated Glomerular Filt Rate 52 mL/min (>60); Glucose 102 mg/dL (80-110); HEMOLYSIS < 15 (0-50); Potassium 4.2 mmol/L (3.4-5.1); Sodium 129 mmol/L (137-145)
[2022-11-13 12:09] LABS: Osmolality, Serum 274 mOsmol/kg (280-301)
[2022-11-14 10:33] LABS: Calcium 9.7 mg/dL (8.7-10.3); Parathyroid Hormone, Intact 16 pg/mL (15-65)
== END ==
PROVIDERS: PCP Family Medicine; Referring Provider Physician Assistant; Visit Provider Physician Assistant
DX: E83.52 Hypercalcemia (principal); E87.1 Hypo-osmolality and hyponatremia
CPT/HCPCS: 36415; 80048; 82310; 83930; 83970

== ENCOUNTER → 2022-11-16 14:56 | Outpatient (CLI) | payer MEDICARE, SELFPAY ==
[2022-08-02 13:31] VITALS: BMI 32.1
[2022-11-16 17:02] LABS: BUN Creatinine Ratio 15.8 (6-22); Blood Urea Nitrogen 18 mg/dL (7-17); Calcium 10.2 mg/dL (8.4-10.2); Carbon Dioxide 27 mmol/L (22-32); Chloride 97 mmol/L (98-107); Estimated Glomerular Filt Rate 48 mL/min (>60); Glucose 109 mg/dL (80-110); HEMOLYSIS < 15 (0-50); Potassium 3.9 mmol/L (3.4-5.1); Sodium 133 mmol/L (137-145)
[2022-11-16 17:04] LABS: Sodium Urine Random 49 mmol/L (30-90)
[2022-11-16 17:35] LABS: TSH w/ Reflex to FT4 2.06 uIU/mL (0.47-4.68)
[2022-11-17 14:11] LABS: Osmolality, Serum 285 mOsmol/kg (280-301)
[2022-11-17 14:11] LABS: Osmolality Urine 261 mOsmol/kg (.)
== END ==
PROVIDERS: PCP Family Medicine; Referring Provider Physician Assistant; Visit Provider Physician Assistant
DX: E87.1 Hypo-osmolality and hyponatremia (principal)
CPT/HCPCS: 36415; 80048; 83930; 83935; 84300; 84443

== ENCOUNTER → 2022-11-20 12:20 | Outpatient (CLI) | payer MEDICARE, SELFPAY ==
[2022-08-02 13:31] VITALS: BMI 32.1
--- NOTE | 2022-11-20 12:20 | DI.CT.S_ITS ---
PROCEDURE: CT HEAD/BRAIN WO CON INDICATIONS: Nontraumatic intracerebral hemorrhage in hemisphere, subcort TECHNIQUE: Noncontrast 4.5 mm thick angled axial sections acquired from the foramen magnum to the vertex, with coronal and sagittal reformats. For radiation dose reduction, the following was used: automated exposure control, adjustment of mA and/or kV according to patient size. COMPARISON: [facility], CT, CT HEAD/BRAIN WO CON, 11/05/2022, 21:34. [facility], CT, CT HEAD/BRAIN WO CON, 10/23/2022, 19:23. FINDINGS: Image quality: Excellent. CSF spaces: Basal cisterns are patent. No extra-axial fluid collections. The ventricles are symmetric in size and shape. Brain: No intracranial bleeds or masses. There is cerebral volume loss for age, with resultant ventricular and sulcal prominence. Again noted is mild encephalomalacia in the subcortical white matter of the right parietal lobe in an area of prior acute intracranial hemorrhage in the same area 10/23/22. There are periventricular and deep white matter chronic small vessel ischemic changes. There is intracranial internal carotid artery atherosclerosis. Skull and face: Calvarium and visualized facial bones appear intact, without suspicious lesions. Sinuses: Visualized sinuses and mastoids are clear. IMPRESSION: Resolution of subcortical white matter right hemispheric hemorrhage, small area of encephalomalacia remains in the area of prior hemorrhage. No new abnormality found. Dictated by: Barry Ghosh M.D. on 11/20/2022 at 13:11 Approved by: Barry Ghosh M.D. on 11/20/2022 at 13:13
== END ==
PROVIDERS: PCP Family Medicine; Referring Provider Neurological Surgery; Visit Provider Neurological Surgery
DX: R26.89 Other abnormalities of gait and mobility (principal); I61.0 Nontraumatic intracerebral hemorrhage in hemisphere, subcortical; M62.81 Muscle weakness (generalized); G93.89 Other specified disorders of brain
CPT/HCPCS: 70450

== ENCOUNTER → 2023-06-10 09:05 | Outpatient (CLI) | payer MEDICARE, SELFPAY ==
[2023-02-11 09:42] VITALS: BMI 32.1
[2023-06-10 10:19] LABS: Add Manual Diff / Slide Review NO; Basophils Absolute Auto 0 /uL (0-100); Basophils Percent Auto 0.6 % (0-2); Eosinophils Absolute Auto 200 /uL (0-450); Eosinophils Percent Auto 2.9 % (2-4); Hematocrit 34.2 % (36-46); Hemoglobin 11.8 g/dL (12.0-16.0); Lymphocytes Absolute Auto 1300 /uL (1100-4500); Lymphocytes Percent Auto 25.2 % (25-40); Mean Corpuscular HGB Conc 34.6 % (30-36); Mean Corpuscular Hemoglobin 31.4 PG (26-34); Mean Corpuscular Volume 90.9 fL (80-100); Monocytes Absolute Auto 500 /uL (0-900); Neutrophils Absolute Auto 3200 /uL (1500-7000); Neutrophils Percent Auto 61.3 % (50-75); Platelet Count 355 X10^3/uL (150-400); Red Blood Cell Count 3.77 X10^6/uL (4.0-5.2); Red Cell Distribution Width 12.8 % (11.6-14.8); White Blood Cell Count 5.2 X10^3/uL (4.5-11.0)
[2023-06-10 10:41] LABS: Alanine Aminotransferase 13 IU/L (<35); Albumin 4.5 g/dL (3.5-5.0); Albumin Globulin Ratio 1.4 (1.0-2.8); Alkaline Phosphatase 60 U/L (38-126); Aspartate Aminotransferase 21 IU/L (14-36); BUN Creatinine Ratio 19.7 (6-22); Bilirubin Total 0.4 mg/dL (0.2-1.3); Blood Urea Nitrogen 23 mg/dL (7-17); Carbon Dioxide 28 mmol/L (22-32); Chloride 103 mmol/L (98-107); Estimated Glomerular Filt Rate 47 mL/min (>60); Globulin 3.3 g/dL (1.7-4.1); Glucose 93 mg/dL (80-110); HEMOLYSIS < 15 (0-50); Potassium 4.6 mmol/L (3.4-5.1); Sodium 135 mmol/L (137-145); Total Protein 7.8 g/dL (6.3-8.2)
[2023-06-10 10:46] LABS: NT-proBNP (BNP-Adult 18+) 199 pg/mL (<450)
[2023-06-10 11:08] LABS: TSH w/ Reflex to FT4 0.04 uIU/mL (0.47-4.68)
[2023-06-10 11:43] LABS: Folate > 20.0 ng/mL (2.76-20.0); Vitamin B12 > 1000 pg/mL (239-931)
[2023-06-10 13:47] LABS: Free T4, Direct Thyroxine 1.38 ng/dL (0.78-2.19)
== END ==
PROVIDERS: PCP Family Medicine; Referring Provider Physician Assistant; Visit Provider Physician Assistant
DX: R53.83 Other fatigue (principal); R00.1 Bradycardia, unspecified; I10 Essential (primary) hypertension
CPT/HCPCS: 36415; 80053; 82607; 82746; 83880; 84439; 84443; 85025

== ENCOUNTER → 2023-06-28 14:14 | Outpatient (CLI) | payer MEDICARE, SELFPAY ==
[2023-02-11 09:42] VITALS: BMI 32.1
--- NOTE | 2023-06-28 14:15 | DI.RAD.S_ITS ---
PROCEDURE: XR DEXA AXIAL SKELETON INDICATIONS: screening COMPARISON: None. FINDINGS: Lumbar Spine: Bone mineral density 0.980 g/cm2, T score -0.6. Left Hip: Bone mineral density 0.974 g/cm2, T score 0.3. Left Femoral Neck: Bone mineral density 0.697 g/cm2, T score -1.4. Right Hip: Bone mineral density 0.966 g/cm2, T score 0.2. Right Femoral Neck: Bone mineral density 0.705 g/cm2, T score -1.3. Fracture Risk Calculation (when applicable): 10-year fracture risk of a major osteoporotic fracture 12% and of a hip fracture 2.8%. (T score greater or equal to -1.0 to: NORMAL) (T score from -1.1 to -2.4: OSTEOPENIA) (T score less than or equal to -2.5: OSTEOPOROSIS) IMPRESSION: Mild osteopenia in the left femoral neck. Follow-up guidelines as follows: Osteoporosis: Consider a repeat DEXA and Vertebral Fracture Assessment (VFA) exam in 2 years or sooner if medically necessary, to reassess this patient's status. Osteopenia: Consider a repeat DEXA in 2-3 years to reassess this patient's status, or if there is a new clinical indication. Normal: Consider a repeat DEXA in 5 years or sooner, or if there is a new clinical indication. Dictated by: Susanne Webber M.D. on 06/28/2023 at 16:04 Approved by: Susanne Webber M.D. on 06/28/2023 at 16:05
--- NOTE | 2023-06-28 14:15 | DI.MG.S_ITS ---
BILATERAL DIGITAL SCREENING MAMMOGRAM 3D/2D WITH CAD: 06/28/2023 CLINICAL: Routine screening. Comparison is made to exams dated: 11/18/2020 mammogram, 09/25/2019 mammogram, and 09/22/2018 mammogram - [facility]. There are scattered areas of fibroglandular density in both breasts (category b / 25%-50% glandular tissue). Current study was also evaluated with a Computer Aided Detection (CAD) system. No significant masses, calcifications, or other findings are seen in either breast. There has been no significant interval change. IMPRESSION: NEGATIVE There is no mammographic evidence of malignancy. A 1 year screening mammogram is recommended. Based on the Tyrer Cuzick model (a risk assessment model) the patient's lifetime risk is 0.7% and her 10 year risk is 0.0%. According to the ACR, ACS, and NCCN guidelines, an annual breast MRI exam along with mammogram is recommended if the patient's lifetime risk is 20% or greater. This exam was interpreted at Station ID: [id number]. NOTE: For mammograms, a report in lay terms will be sent to the patient. Approximately 15% of breast malignancies will not be visualized mammographically. In the management of a palpable breast mass, a negative mammogram must not discourage biopsy of a clinically suspicious lesion. Electronically Signed By: Avery galvan/cuauhtemoc:06/28/2023 14:55:09 letter sent: Normal Exam ACR BI-RADS Category 1: Negative [id number]
== END ==
LOC: MAMMO 14:15
PROVIDERS: PCP Family Medicine; Referring Provider Physician Assistant; Visit Provider Physician Assistant
DX: Z78.0 Asymptomatic menopausal state (principal); Z12.31 Encounter for screening mammogram for malignant neoplasm of breast; R92.323 Mammographic fibroglandular density, bilateral breasts; M85.852 Other specified disorders of bone density and structure, left thigh
CPT/HCPCS: 77063; 77067; 77080

== ENCOUNTER → 2023-07-30 13:50 | Outpatient (CLI) | payer MEDICARE, SELFPAY ==
[2023-02-11 09:42] VITALS: BMI 32.1
--- NOTE | 2023-07-30 13:52 | DI.ECHO.S_ITS ---
[facility]+ [facility] : : [address] : : [place] : : [id number] : : Phone: [phone] Echocardiogram Report + + :Name: ZACK ELLER Study Date: 07/30/2023 Height: 59 in : :Hospital ReadingLocation: Weight: 162 lb : : Gender: Female BSA: 1.7 m2 : :: 1940 Age: 82 yrs BP: 148/76 mmHg: :Reason For Study: ESSENTIAL HYPERTENSION : :Ordering Physician: MARIA ALEJANDRA, : :ELISEO Performed By: Guy Smith : :Referring: ELISEO BESS : + + Interpretation Summary 1. This is a technically difficult study secondary to poor acoustic windows. 2. The left ventricular contractility appears to be normal. Estimated ejection fraction is greater than 55% without obvious segmental wall motion abnormalities. Possible mild concentric left ventricular hypertrophy is present. Grade 1 diastolic dysfunction noted. 3. The right ventricular contractility is normal. 4. All cardiac chambers appears to be grossly normal in size. 5. No obvious intracardiac shunts noted. 6. Mild tricuspid regurgitation present with mildly elevated pulmonary systolic artery pressure of 44 mmHg. No other significant valvular abnormalities present. 7. No obvious intracardiac masses nor thrombi appreciated. 8. No obvious hemodynamically significant pericardial effusion present. Conclusion: Normal biventricular systolic function with changes suggestive of hypertensive heart disease. Procedure: A two-dimensional transthoracic echocardiogram with color flow and Doppler was performed. The study quality was technically adequate. There is no prior echocardiogram noted for this patient. The patient was in sinus rhythm with heart rates between 51-70 bpm during the exam. Left Ventricle: The left ventricle is normal in size. Left ventricular wall thickness is mildly increased. The ejection fraction is estimated to be 60- 65%. Right Ventricle: The right ventricle is normal size. The right ventricular systolic function is normal. Atria: The left atrial size is normal. Right atrial size is normal. The interatrial septum grossly appears intact with no obvious evidence for an atrial septal defect. Mitral Valve: The mitral valve is normal. There is no mitral valve stenosis. There is trace mitral regurgitation. Aortic Valve: The aortic valve is trileaflet. There is no aortic valve stenosis. No aortic regurgitation is present. Tricuspid Valve: The tricuspid valve is normal. There is no tricuspid stenosis. There is mild tricuspid regurgitation. The right ventricular systolic pressure is estimated to be at least 43.6 mmHg based on an estimated right atrial pressure of 3 mm Hg. Pulmonic Valve: The pulmonic valve is not well visualized. There is no pulmonic valvular stenosis. There is a trace or physiologic amount of pulmonic regurgitation. Great Vessels: The aortic root is normal size. The dimensions of the ascending aorta are normal. The IVC is of normal diameter and collapses greater than 50% with a sniff. This suggests a low right atrial pressure of 3 mm Hg. Pericardium/ Pleura There is no pericardial effusion. There is no pleural effusion. MMode/2D Measurements & Calculations LVIDd: 4.6 cm LVOT diam: 1.8 cm LVIDs: 3.0 cm Ao root diam: 2.8 cm FS: 35.1 % asc Aorta Diam: 2.7 cm IVSd: 1.3 cm LVPWd: 1.1 cm LV moore. diameter/BSA (cm/m^2): 2.7 LV sys. diameter/BSA (cm/m^2): 1.8 LA A2 area: 19.1 cm2 RA long axis: 4.8 cm LA A4 area: 22.9 cm2 RA area: 13.0 cm2 LA length (vol): 5.7 cm RA vol: 29.9 ml LA vol: 64.9 ml RA : 17.7 ml/m2 LA vol index: 38.5 ml/m2 IVC diam: 1.4 cm RVD1 (basal): 3.2 cm RVD2 (mid): 2.9 cm TAPSE: 2.3 cm Doppler Measurements & Calculations Ao V2 max: 175.1 cm/sec LVOT Max Jacinto: 140.5 cm/sec Ao V2 mean: 113.2 cm/sec LV V1 max P.9 mmHg Ao max P.3 mmHg LV V1 VTI: 39.5 cm Ao mean P.9 mmHg FRANCIS(I,D): 2.3 cm2 Ao V2 VTI: 43.5 cm FRANCIS(V,D): 2.0 cm2 sev ratio: 0.91 FRANCIS indexed to BSA (cm^2/m^2): 1.4 MV E max jacinto: 101.1 cm/sec TR max jacinto: 318.7 cm/sec MV A max jacinto: 95.8 cm/sec TR max P.6 mmHg MV E/A: 1.1 PA V2 max: 139.5 cm/sec Med Peak E' Jacinto: 7.8 cm/sec PA V2 mean: 103.7 cm/sec E/E' med: 13.0 PA mean P.7 mmHg Lat Peak E' Jacinto: 9.3 cm/sec PA pr(Accel): 31.0 mmHg E/E' lat: 10.9 E/e' average: 11.9 MV dec time: 0.22 sec SV(MIKAELAOT): 100.2 ml Reading Physician:
== END ==
LOC: ECHO 13:50
PROVIDERS: PCP Family Medicine; Referring Provider Physician Assistant; Visit Provider Physician Assistant
DX: I07.1 Rheumatic tricuspid insufficiency (principal); R00.1 Bradycardia, unspecified; R53.83 Other fatigue; I10 Essential (primary) hypertension
CPT/HCPCS: 93306

== ENCOUNTER → 2023-08-02 10:28 | Outpatient (CLI) | payer MEDICARE, SELFPAY ==
[2023-02-11 09:42] VITALS: BMI 32.1
[2023-08-02 11:26] LABS: Add Manual Diff / Slide Review NO; Basophils Absolute Auto 0 /uL (0-100); Basophils Percent Auto 0.9 % (0-2); Eosinophils Absolute Auto 100 /uL (0-450); Hematocrit 33.9 % (36-46); Hemoglobin 11.7 g/dL (12.0-16.0); Lymphocytes Absolute Auto 1300 /uL (1100-4500); Lymphocytes Percent Auto 28.7 % (25-40); Mean Corpuscular HGB Conc 34.4 % (30-36); Mean Corpuscular Hemoglobin 31.3 PG (26-34); Monocytes Absolute Auto 400 /uL (0-900); Monocytes Percent Auto 9.1 % (3-14); Neutrophils Absolute Auto 2700 /uL (1500-7000); Neutrophils Percent Auto 59.3 % (50-75); Platelet Count 333 X10^3/uL (150-400); Red Blood Cell Count 3.73 X10^6/uL (4.0-5.2); Red Cell Distribution Width 12.7 % (11.6-14.8); White Blood Cell Count 4.6 X10^3/uL (4.5-11.0)
[2023-08-02 12:19] LABS: TSH w/ Reflex to FT4 0.12 uIU/mL (0.47-4.68)
[2023-08-02 12:51] LABS: Free T4, Direct Thyroxine 1.08 ng/dL (0.78-2.19)
== END ==
PROVIDERS: PCP Family Medicine; Referring Provider Physician Assistant; Visit Provider Physician Assistant
DX: D64.9 Anemia, unspecified (principal); I10 Essential (primary) hypertension; R79.89 Other specified abnormal findings of blood chemistry
CPT/HCPCS: 36415; 84439; 84443; 85025

== ENCOUNTER → 2023-08-16 10:31 | Outpatient (CLI) | payer MEDICARE, SELFPAY ==
[2023-02-11 09:42] VITALS: BMI 32.1
--- NOTE | 2023-08-16 13:23 | DI.US.S_ITS ---
PROCEDURE: US CAROTID DOPPLER BI INDICATIONS: DIZZINESS TECHNIQUE: Color and pulse Doppler interrogation was performed of both carotid systems, with image documentation and velocity measurements. COMPARISON: None. FINDINGS: Stenosis calculations are based on SRU (Society of Radiologists in Ultrasound) criteria. Right side: Brachial blood pressure: 139/65 mm Hg. Common carotid artery peak systolic velocity: 104 cm/sec. Internal carotid artery peak systolic velocity: 97 cm/sec. Internal carotid artery end diastolic velocity: 10 cm/sec. External carotid artery peak systolic velocity: 118 cm/sec. ICA/CCA peak systolic ratio: 0.9. Rushing scale imaging description: Mild plaque Percent internal carotid artery stenosis: Less than 50% stenosis. Vertebral artery: Flow direction is antegrade. Left side: Brachial blood pressure: 133/55 mm Hg. Common carotid artery peak systolic velocity: 126 cm/sec. Internal carotid artery peak systolic velocity: 102 cm/sec. Internal carotid artery end diastolic velocity: 10 cm/sec. External carotid artery peak systolic velocity: 107 cm/sec. ICA/CCA peak systolic ratio: 0.8 . Rushing scale imaging description: Minimal plaque. Percent internal carotid artery stenosis: Less than 50% stenosis. Vertebral artery: Flow direction is antegrade. IMPRESSION: 1. Right ICA: Less than 50 % stenosis. 2. Left ICA: Less than 50 % stenosis. 3. Antegrade flow in the bilateral vertebral arteries. Dictated by: Juan Jose Henson M.D. on 08/16/2023 at 22:33 Approved by: Juan Jose Henson M.D. on 08/16/2023 at 22:42
[2023-08-17 19:10] LABS: Anti Thyroglobulin Antibody 8.2 IU/mL (0.0-0.9); Thyroid Peroxidase Antibodies 57 IU/mL (0-34)
== END ==
PROVIDERS: PCP Family Medicine; Referring Provider Family Medicine; Visit Provider Family Medicine
DX: I65.23 Occlusion and stenosis of bilateral carotid arteries (principal); H81.10 Benign paroxysmal vertigo, unspecified ear; R42 Dizziness and giddiness; R79.89 Other specified abnormal findings of blood chemistry; R53.83 Other fatigue; R00.1 Bradycardia, unspecified; I10 Essential (primary) hypertension
CPT/HCPCS: 36415; 84481; 86376; 86800; 93880

== ENCOUNTER → 2023-09-15 15:12 | Outpatient (CLI) | payer MEDICARE, SELFPAY ==
[2023-02-11 09:42] VITALS: BMI 32.1
== END ==
LOC: CAR 15:13
PROVIDERS: PCP Family Medicine; Referring Provider Family Medicine; Visit Provider Family Medicine
DX: I10 Essential (primary) hypertension (principal); R42 Dizziness and giddiness; E05.90 Thyrotoxicosis, unspecified without thyrotoxic crisis or storm
CPT/HCPCS: 93242

== ENCOUNTER → 2023-10-04 10:15 | Outpatient (CLI) | payer MEDICARE, SELFPAY ==
[2023-02-11 09:42] VITALS: BMI 32.1
[2023-10-04 11:44] LABS: Alanine Aminotransferase 14 IU/L (<35); Albumin 4.6 g/dL (3.5-5.0); Albumin Globulin Ratio 1.4 (1.0-2.8); Alkaline Phosphatase 54 U/L (38-126); Aspartate Aminotransferase 25 IU/L (14-36); BUN Creatinine Ratio 16.3 (6-22); Bilirubin Total 0.6 mg/dL (0.2-1.3); Blood Urea Nitrogen 21 mg/dL (7-17); Calcium 9.9 mg/dL (8.4-10.2); Carbon Dioxide 25 mmol/L (22-32); Chloride 101 mmol/L (98-107); Cholesterol 197 mg/dL (140-199); Estimated Glomerular Filt Rate 42 mL/min (>60); Globulin 3.3 g/dL (1.7-4.1); Glucose 105 mg/dL (80-110); HDL Cholesterol 82 mg/dL (40-60); HEMOLYSIS < 15 (0-50); LDL Cholesterol Calculated 95 mg/dL (<100); Potassium 4.2 mmol/L (3.4-5.1); Sodium 134 mmol/L (137-145); Total Protein 7.9 g/dL (6.3-8.2); Triglycerides 100 mg/dL (35-150)
[2023-10-04 11:57] LABS: Free T3, Triiodothyronine Free 3.05 pg/mL (2.77-5.27)
[2023-10-04 12:11] LABS: TSH w/ Reflex to FT4 0.15 uIU/mL (0.47-4.68)
[2023-10-04 13:39] LABS: Free T4, Direct Thyroxine 1.11 ng/dL (0.78-2.19)
== END ==
PROVIDERS: PCP Family Medicine; Referring Provider Family Medicine; Visit Provider Family Medicine
DX: N18.9 Chronic kidney disease, unspecified (principal); E78.2 Mixed hyperlipidemia; R79.89 Other specified abnormal findings of blood chemistry; D64.9 Anemia, unspecified; R53.83 Other fatigue
CPT/HCPCS: 36415; 80053; 80061; 84439; 84443; 84481

== ENCOUNTER → 2023-10-11 12:54 | Outpatient (CLI) | payer MEDICARE, SELFPAY ==
[2023-02-11 09:42] VITALS: BMI 32.1
[2023-10-11 14:12] LABS: Appearance Urine UA CLEAR; Bilirubin Urine UA NEGATIVE (NEGATIVE); Color Urine UA YELLOW; Glucose Urine UA NEGATIVE (Negative); Ketones Urine UA NEGATIVE (NEGATIVE); Leukocyte Esterase Urine UA NEGATIVE (NEGATIVE); Nitrite Urine UA NEGATIVE (Negative); Occult Blood Urine UA NEGATIVE (Negative); Protein Urine UA NEGATIVE (Negative); Urobilinogen Urine UA 0.2 E.U./dL (0.2)
[2023-10-11 14:32] LABS: Bacteria Urine None Seen; Culture Indicated Urine Cult Not Indicated; RBC Urine None Seen (0-5/HPF); Squamous Epithelial Cell Urine None Seen (0-5/HPF); Urine Volume 10mL (spun); WBC Urine None Seen (0-5/HPF)
== END ==
PROVIDERS: PCP Family Medicine; Referring Provider Family Medicine; Visit Provider Family Medicine
DX: R89.9 Unspecified abnormal finding in specimens from other organs, systems and tissues (principal)
CPT/HCPCS: 81001

== ENCOUNTER → 2023-10-14 11:13 | Outpatient (CLI) | payer MEDICARE, SELFPAY ==
[2023-02-11 09:42] VITALS: BMI 32.1
--- NOTE | 2023-10-14 11:14 | DI.US.S_ITS ---
PROCEDURE: US THYROID INDICATIONS: hyperthyroidism, hypertension TECHNIQUE: Real-time scanning was performed of the thyroid gland, with image documentation. COMPARISON: None. FINDINGS: Thyroid: Right lobe measures 3.4 x 1.2 x 1.1 cm. Left lobe measures 3.1 x 1.3 x 1.8 cm. Isthmus is 0.4 cm thick. Echotexture is minimally heterogeneous and not well assessed due to patient body habitus. No discrete nodules. Color Doppler imaging demonstrates appropriate vascular flow without significant hyperemia. Adjacent lateral compartment lymph nodes are normal. IMPRESSION: Slightly diminutive thyroid gland without dominant nodule or significant hypervascularity. ACR TI-RADS definitions and recommendations: TI-RADS 1 (benign): 0 points. FNA not needed. TI-RADS 2 (not suspicious): 2 points. FNA not needed. TI-RADS 3 (mildly suspicious): 3 points. * FNA if 2.5 cm or larger, follow up if 1.5 cm or larger (at 1, 3, and 5 years). TI-RADS 4 (moderately suspicious): 4-6 points. * FNA if 1.5 cm or larger, follow up if 1 cm or larger (at 1, 2, 3, and 5 years). TI-RADS 5 (highly suspicious): 7 points or more. * FNA if 1 cm or larger, follow up if 0.5 cm or larger (every year for 5 years). Dictated by: Haley Croft M.D. on 10/14/2023 at 16:40 Approved by: Haley Croft M.D. on 10/14/2023 at 16:42
== END ==
PROVIDERS: PCP Family Medicine; Referring Provider Family Medicine; Visit Provider Family Medicine
DX: I10 Essential (primary) hypertension (principal); E05.90 Thyrotoxicosis, unspecified without thyrotoxic crisis or storm
CPT/HCPCS: 76536

== ENCOUNTER → 2023-11-05 11:19 | Outpatient (CLI) | payer MEDICARE, SELFPAY ==
[2023-02-11 09:42] VITALS: BMI 32.1
[2023-11-05 12:42] LABS: Alanine Aminotransferase 16 IU/L (<35); Albumin 4.5 g/dL (3.5-5.0); Albumin Globulin Ratio 1.4 (1.0-2.8); Alkaline Phosphatase 54 U/L (38-126); Aspartate Aminotransferase 30 IU/L (14-36); BUN Creatinine Ratio 19.4 (6-22); Bilirubin Total 0.6 mg/dL (0.2-1.3); Blood Urea Nitrogen 24 mg/dL (7-17); Calcium 9.6 mg/dL (8.4-10.2); Carbon Dioxide 26 mmol/L (22-32); Chloride 101 mmol/L (98-107); Estimated Glomerular Filt Rate 43 mL/min (>60); Globulin 3.3 g/dL (1.7-4.1); Glucose 96 mg/dL (80-110); HEMOLYSIS < 15 (0-50); Potassium 4.1 mmol/L (3.4-5.1); Sodium 135 mmol/L (137-145); Total Protein 7.8 g/dL (6.3-8.2)
== END ==
PROVIDERS: PCP Family Medicine; Referring Provider Family Medicine; Visit Provider Family Medicine
DX: D64.9 Anemia, unspecified (principal); N18.9 Chronic kidney disease, unspecified; R79.89 Other specified abnormal findings of blood chemistry
CPT/HCPCS: 36415; 80053

== ENCOUNTER → 2023-11-24 10:46 | Outpatient (CLI) | payer MEDICARE, SELFPAY ==
[2023-02-11 09:42] VITALS: BMI 32.1
--- NOTE | 2023-11-24 | DI.US.S_ITS ---
PROCEDURE: US RENAL COMPLETE INDICATIONS: ELEVATED KIDNEY FUNCTION LABS TECHNIQUE: Real-time scanning was performed of the kidneys and bladder, with image documentation. COMPARISON: None. FINDINGS: Kidneys: Kidneys are mildly atrophic. Right kidney measures 8.7 cm long; left kidney measures 7.9 cm long. Right renal cortical thickness is 1.6 cm; left renal cortical thickness is 1.1 cm. Renal cortical echotexture is normal. No hydronephrosis or nephrolithiasis. No suspicious solid mass lesions. Bladder: Pre-void bladder volume is 267 mL. Post-void residual is 53 mL. Pre-void images demonstrate no intraluminal masses or stones. On pre-void images, bilateral ureteral jets are noted with color Doppler interrogation. (Of note, ureteral jets may not be detectable in up to 25% of cases due to insufficient differences in specific gravity between ureteral and bladder urine). Miscellaneous: No free pelvic fluid. IMPRESSION: Mildly atrophic bilateral kidneys. No nephrolithiasis or hydronephrosis. Prevoid volume of 267 cc and postvoid residual volume of 53 cc. Bilateral ureteral jets visualized. Approved by: Jessika Hood M.D.,Ph.D. on 11/25/2023 at 0:11
== END ==
LOC: US 10:46
PROVIDERS: PCP Family Medicine; Referring Provider Family Medicine; Visit Provider Family Medicine
DX: N28.9 Disorder of kidney and ureter, unspecified (principal); N26.1 Atrophy of kidney (terminal)
CPT/HCPCS: 76770

== ENCOUNTER → 2024-03-06 12:44 | Outpatient (CLI) | payer OTHER, SELFPAY ==
[2023-02-11 09:42] VITALS: BMI 32.1
[2024-03-06 13:09] LABS: Appearance Urine UA SL CLOUDY; Bilirubin Urine UA NEGATIVE (NEGATIVE); Color Urine UA YELLOW; Glucose Urine UA NEGATIVE (Negative); Ketones Urine UA NEGATIVE (NEGATIVE); Leukocyte Esterase Urine UA 2+ (NEGATIVE); Nitrite Urine UA POSITIVE (Negative); Occult Blood Urine UA TRACE-INTACT (Negative); Protein Urine UA NEGATIVE (Negative); Specific Gravity Urine UA <=1.005 (1.000-1.035); Urobilinogen Urine UA 0.2 E.U./dL (0.2)
[2024-03-06 13:10] LABS: Urine Volume 10mL (spun); pH Urine UA 5.5 (4.5-8.0)
[2024-03-06 13:12] LABS: Bacteria Urine Many (>30); Culture Indicated Urine Specimen Cultured; RBC Urine 0-1/HPF (0-5/HPF); Squamous Epithelial Cell Urine None Seen (0-5/HPF); WBC Urine 10-30/HPF (0-5/HPF)
[2024-03-06 14:26] LABS: Albumin 4.7 g/dL (3.5-5.0); BUN Creatinine Ratio 16.7 (6-22); Blood Urea Nitrogen 21 mg/dL (7-17); Calcium 9.9 mg/dL (8.4-10.2); Carbon Dioxide 26 mmol/L (22-32); Chloride 99 mmol/L (98-107); Estimated Glomerular Filt Rate 43 mL/min (>60); Glucose 144 mg/dL (80-110); HEMOLYSIS < 15 (0-50); Phosphorous 3.6 mg/dL (2.8-4.1); Potassium 3.7 mmol/L (3.4-5.1); Sodium 134 mmol/L (137-145)
[2024-03-06 14:56] LABS: Thyroid Stimulating Hormone 0.296 uIU/mL (0.47-4.68)
== END ==
PROVIDERS: PCP Family Medicine; Referring Provider Family Medicine; Visit Provider Family Medicine
DX: R82.90 Unspecified abnormal findings in urine (principal); N18.9 Chronic kidney disease, unspecified; R79.89 Other specified abnormal findings of blood chemistry; R35.0 Frequency of micturition
CPT/HCPCS: 36415; 80069; 81001; 84443; 87077; 87086; 87186

== ENCOUNTER → 2024-04-24 13:06 | Outpatient (CLI) | payer OTHER, SELFPAY ==
[2024-03-06 13:55] VITALS: BMI 32.1
[2024-04-24 14:23] LABS: TSH w/ Reflex to FT4 0.16 uIU/mL (0.47-4.68)
[2024-04-24 14:49] LABS: Free T4, Direct Thyroxine 1.06 ng/dL (0.78-2.19)
== END ==
PROVIDERS: PCP Family Medicine; Referring Provider Family Medicine; Visit Provider Family Medicine
DX: R79.89 Other specified abnormal findings of blood chemistry (principal)
CPT/HCPCS: 36415; 84439; 84443

== ENCOUNTER → 2024-07-11 15:52 | Outpatient (CLI) | payer OTHER, SELFPAY ==
[2024-03-06 13:55] VITALS: BMI 32.1
--- NOTE | 2024-07-11 15:53 | DI.RAD.S_ITS ---
PROCEDURE: XR SHOULDER LT 3V INDICATIONS: left shoulder and rib pain after fall TECHNIQUE: 3 views of the shoulder were acquired. COMPARISON: [facility], CR, XR SHOULDER LT MIN 2V, 11/05/2022, 21:57. FINDINGS: Artifacts from overlying clothing and other extrinsic artifacts partially limit radiographic detail. Left shoulder arthroplasty without radiographic evidence of periprosthetic fracture or lucency, unchanged. Degenerative changes left acromioclavicular joint unchanged. Calcifications of the aortic arch and degenerative changes lower cervical, thoracic spine partially imaged. No radiographic evidence of fracture, dislocation or high attenuation soft tissue foreign body. IMPRESSION: No significant change. No radiographic evidence of acute abnormality. If symptoms persist or worsen, or there is high clinical suspicion of left shoulder abnormality, CT or MRI could be performed. Dictated by: Kvng Marks M.D. on 07/12/2024 at 9:20 Approved by: Kvng Marks M.D. on 07/12/2024 at 9:27
--- NOTE | 2024-07-11 15:53 | DI.RAD.S_ITS ---
PROCEDURE: XR RIBS LT MIN 3V W CXR1V INDICATIONS: left shoulder and rib pain after fall TECHNIQUE: 3 views of the ribs were acquired, along with a single view chest. COMPARISON: [facility], , XR RIBS LT MIN 3V W CXR1V, 09/22/2021, 19:23. FINDINGS: Surgical changes and devices: Left shoulder arthroplasty. Bones and chest wall: No fractures or dislocations. No suspicious bony lesions. Overlying soft tissues appear unremarkable. Lungs and pleura: No pleural effusions or pneumothorax. Lungs appear clear. Mediastinum: Mediastinal contours appear normal. Heart size is enlarged. IMPRESSION: No visualized acute fracture or dislocation. However, if clinical concern and/or pain persist, short interval imaging followup in 7-10 days is recommended, as occult injury cannot be definitively excluded. Dictated by: Susanne Webber M.D. on 07/12/2024 at 11:44 Approved by: Susanne Webber M.D. on 07/12/2024 at 11:45
== END ==
PROVIDERS: PCP Family Medicine; Referring Provider Family Medicine; Visit Provider Family Medicine
DX: R07.81 Pleurodynia (principal); I70.0 Atherosclerosis of aorta; S29.011A Strain of muscle and tendon of front wall of thorax, initial encounter; M25.512 Pain in left shoulder; X58.XXXA Exposure to other specified factors, initial encounter
CPT/HCPCS: 71101; 73030

== ENCOUNTER → 2024-09-27 11:43 | Outpatient (CLI) | payer OTHER, SELFPAY ==
[2024-03-06 13:55] VITALS: BMI 32.1
[2024-09-27 13:15] LABS: Hemoglobin A1C% w Est Avg Glu 5.7 % (4.0-6.0)
[2024-09-27 13:20] LABS: Albumin 4.7 g/dL (3.5-5.0); Blood Urea Nitrogen 19 mg/dL (7-17); Calcium 9.5 mg/dL (8.4-10.2); Carbon Dioxide 24 mmol/L (22-32); Chloride 97 mmol/L (98-107); Estimated Glomerular Filt Rate 45 mL/min (>60); Glucose 89 mg/dL (70-99); HEMOLYSIS < 15 (0-50); Phosphorous 3.4 mg/dL (2.8-4.1); Potassium 4.2 mmol/L (3.4-5.1); Sodium 132 mmol/L (137-145)
== END ==
PROVIDERS: PCP Family Medicine; Referring Provider Family Medicine; Visit Provider Family Medicine
DX: R73.03 Prediabetes (principal); N18.9 Chronic kidney disease, unspecified
CPT/HCPCS: 36415; 80069; 83036

== ENCOUNTER 2024-10-20 13:24 | Emergency (ER) | payer OTHER, SELFPAY ==
[2024-03-06 13:55] VITALS: BMI 32.1
[2024-10-20] VITALS (9 sets, daily range): BP systolic 128–142; BP diastolic 59–67; PULSE 51–66; RESP 14–19; TEMP 36.4; O2SAT 93–100; BMI 31.7
--- NOTE | 2024-10-20 13:33 | DI.RAD.S_ITS ---
PROCEDURE: XR CHEST 1V INDICATIONS: Chest Pain TECHNIQUE: One view of the chest was acquired. COMPARISON: [facility], CR, XR CHEST 1V, 10/19/2022, 8:09. FINDINGS AND IMPRESSION: Low lung volumes. No dense airspace disease or pleural effusion on this single view study. Heart size is at the upper limit of normal. Aortic calcifications. Unchanged mediastinal contours. Left shoulder arthroplasty device. Degenerative osseous changes. Dictated by: Avery Hirsch M.D. on 10/20/2024 at 14:32 Approved by: Avery Hirsch M.D. on 10/20/2024 at 14:33
--- NOTE | 2024-10-20 13:55 | EKG_ITS ---
[place] [id number] [place] [id number] Test Date: 2024-10-20 Pat Name: Jenifer De La Cruz Department: [facility] Room: Gender: Female Client Success Manager: JOSE : 1940 Requested By: Order Number: [id number] Reading MD: Inder Chavez Measurements Intervals [place] Rate: 55 P: -16 TX: 90 QRS: 2 QRSD: 86 T: 27 QT: 502 QTc: 480 Interpretive Statements Sinus bradycardia with short TX with premature supraventricular complexes Cannot rule out Anterior infarct , age undetermined Electronically Signed On 10-23-2024 16:46:31 PDT by Inder Chavez
[2024-10-20 13:58] LABS: Add Manual Diff / Slide Review NO; Hematocrit 34.0 % (36-46); Hemoglobin 11.9 g/dL (12.0-16.0); Lymphocytes Absolute Auto 1600 /uL (1100-4500); Mean Corpuscular HGB Conc 35.0 % (30-36); Mean Corpuscular Hemoglobin 31.5 PG (26-34); Mean Corpuscular Volume 89.8 fL (80-100); Platelet Count 369 X10^3/uL (150-400)
--- NOTE | 2024-10-20 13:59 | ED.SYNCOPE ---
HPI - Syncope General Chief Complaint: Syncope Stated Complaint: Syncope Time Seen by Provider: 10/20/24 13:30 History of Present Illness HPI narrative: 84-year-old female history of right frontal parenchymal head bleed 10/23/22, esophageal dysphagia, essential tremor, anemia, fatigue, BPPV balance issues, back pain, NILESH, obesity, familial stress presents with witnessed syncopal episode by the all in the kitchen making breakfast. Patient was let down gently by so no injuries noted. Patient denies chest pain shortness of breath headache dizziness fever chills body aches nausea vomiting diarrhea. Other than what is stated 14 point review of system is negative. Related Data Home Medications ?Medication ?Instructions ?Recorded ?Confirmed ResMed AirSense 10 CPAP #1 ea 04/28/18 10/03/24 fenofibrate 54 mg tablet 54 mg PO DAILY 04/28/24 10/03/24 propranolol 10 mg tablet 5 mg PO BEDTIME 10/03/24 10/03/24 Previous Rx's ?Medication ?Instructions ?Recorded Diabled Parking Permit #1 ea 08/11/22 hydrochlorothiazide 25 mg tablet 25 mg PO DAILY #60 tabs 02/21/24 omeprazole 20 mg capsule,delayed 20 mg PO DAILY #90 caps 06/15/24 release amlodipine 5 mg tablet 5 mg PO BID #180 tabs 07/04/24 levothyroxine 25 mcg tablet 12.5 mcg (1/2 x 25 mcg) PO DAILY 07/20/24 #45 tabs Hospital bed #1 ea 08/02/24 fluticasone propionate 50 2 spray intranasal BID PRN allergy 08/30/24 mcg/actuation nasal symptoms #16 grams spray,suspension gabapentin 100 mg tablet 100 - 300 mg (1 - 3 x 100 mg) PO 10/03/24 BEDTIME #20 tabs oxycodone-acetaminophen 5 mg-325 1 tab PO Q6H PRN pain #10 tabs 10/03/24 mg tablet lisinopril 40 mg tablet 40 mg PO DAILY #60 tabs 10/17/24 nirmatrelvir 150 mg (10)-ritonavir See Rx Instructions PO .COMPLEX 10/20/24 100 mg (10) tablets in a dose pack #20 ea (Paxlovid) Allergies Allergy/AdvReac Type Severity Reaction Status Date / Time morphine (MORPHINE) Allergy Severe SWELLING Verified 10/03/24 08:35 atorvastatin (ATORVASTATIN) Allergy Intermediate Joint Pain Verified 10/03/24 08:35 simvastatin (SIMVASTATIN) Allergy Intermediate hives, Verified 10/03/24 08:35 itchiness, swelling, nausea ezetimibe (From ZETIA) AdvReac Intermediate Joint Pain Verified 10/03/24 08:35 Review of Systems Review of Systems ROS Unobtainable: All systems reviewed & are unremarkable except as noted in HPI and below Patient History Medical History (Updated 10/20/24 @ 16:18 by Mak Banegas DO) Urinary frequency Fall Dermatitis Acute lumbar myofascial strain Thoracic back pain Bradycardia Adverse effect of anticholinergic Foot joint stiffness, bilateral BPPV (benign paroxysmal positional vertigo) Balance problem Hx of skin disorder COVID-19 virus infection (~07/29/21) COVID-19 virus infection (~05/2021) Prolonged QT interval Patient has active physician orders for life-sustaining treatment (POLST) form Finger pain, left Rash and nonspecific skin eruption Left shoulder pain Onychomycosis Essential tremor Bilateral arm pain Upper extremity somatic dysfunction Sacral region somatic dysfunction Pelvic somatic dysfunction Lumbar region somatic dysfunction Thoracic region somatic dysfunction Cervical somatic dysfunction Body posture problem Bilateral shoulder pain Toe pain, left Frontal sinus pain Obstructive sleep apnea of adult Dry eyes Osteopenia (~2008) Low back pain (~10/2016) Migraines Vertigo Arthritis GERD (gastroesophageal reflux disease) Sleep apnea Hemorrhoids Hypertension Hyperlipidemia Surgical History Hx of hernia repair Hx of vaginal surgery Hx of hemorrhoidectomy History of knee replacement History of total abdominal hysterectomy and bilateral salpingo-oophorectomy Family History Mother Cancer Father No problems noted. Social History marital status: details: naz Winston, lives in [place] household members: spouse lives independently: Yes caregiver/support person: No housing: house alcohol intake: current alcohol intake frequency: 0-2 drinks per day Exam Narrative Exam Narrative: GENERAL: [84] year old patient appears stated age. Well-developed patient, in mild distress. HEAD: Atraumatic. Normocephalic. EYES: Pupils equal round and reactive. Extraocular motions intact. No scleral icterus. No injection or drainage. ENT: Nose without bleeding, purulent drainage. Throat without erythema, tonsillar hypertrophy or exudate. Airway patent. NECK: Trachea midline. Non tender CARDIOVASCULAR: Regular rate and rhythm without murmurs, gallops, or rubs. RESPIRATORY: Clear to auscultation. Breath sounds equal bilaterally. No wheezes, rales, or rhonchi. GASTROINTESTINAL: Abdomen soft, non-tender, nondistended. EXTREMITIES: No edema or joint tenderness. BACK: Nontender without deformity or crepitance. No flank tenderness. NEURO: AOx3. SKIN: No rash or erythema of visible areas Course Orders Ordered: ED Orders 10/20/24 13:33 XR chest 1V Stat EKG-12 Lead Stat 10/20/24 13:46 Complete Blood Count AUTO DIFF Stat Comprehensive Metabolic Panel Stat Lipase Stat Magnesium Stat NT-proBNP (BNP-Adult 18+) Stat PTT Partial Thromboplastin [place] Stat Prothrombin Time INR Stat Troponin & CK Cardiac Panel Stat Discontinued Medications Aspirin (Aspirin 81 Mg Chew Tab) 324 mg PO NOW ONE Stop: 10/20/24 13:34 MDM - Syncope Lab Data 10/20/24 13:46 10/20/24 13:46 Imaging Data Chest x-ray: Radiologist's Impression: [address] [address] XRay Report Signed Patient: Jenifer De La Cruz MR#: [id number] : 1940 Acct:[id number] Age/Sex: 84 / F Date of Service: 10/20/24 Loc: ED Accession Number: [id number] Procedure: XR chest 1V Ordering Provider: Mak Banegas D.O. PROCEDURE: XR CHEST 1V INDICATIONS: Chest Pain TECHNIQUE: One view of the chest was acquired. COMPARISON: [facility], , XR CHEST 1V, 10/19/2022, 8:09. FINDINGS AND IMPRESSION: Low lung volumes. No dense airspace disease or pleural effusion on this single view study. Heart size is at the upper limit of normal. Aortic calcifications. Unchanged mediastinal contours. Left shoulder arthroplasty device. Degenerative osseous changes. CT scan - abdomen/pelvis: Radiologist's Impression: [address] [address] [address] Scan Report Signed Patient: Jenifer De La Cruz MR#: [id number] : 1940 Acct:[id number] Age/Sex: 84 / F Date of Service: 10/20/24 Loc: ED Accession Number: [id number] Procedure: CT head/brain wo con Ordering Provider: Mak Banegas D.O. PROCEDURE: CT HEAD/BRAIN WO CON INDICATIONS: syncope TECHNIQUE: Noncontrast 4.5 mm thick angled axial sections acquired from the foramen magnum to the vertex, with coronal and sagittal reformats. For radiation dose reduction, the following was used: automated exposure control, adjustment of mA and/or kV according to patient size. COMPARISON: [facility], CT, CT HEAD/BRAIN WO CON, 11/20/2022, 12:26. FINDINGS: Image quality: Diagnostic. CSF spaces: Basal cisterns are patent. No extra-axial fluid collections. Ventricles are normal in size and shape. 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 Underlying atrophy and chronic ischemic change. No acute hemorrhage or mass effect Skull and face: Calvarium and visualized facial bones are intact, without suspicious lesions. Sinuses: Visualized sinuses and mastoids are clear. IMPRESSION: Old right frontal infarct. No acute hemorrhage or mass effect. ECG Data Interpretation: SInus Cal HR 55 SD 90 QRS [address]-t wave change Unchanged from 10/23/22 MDM Narrative Medical decision making narrative: All labwork, vital signs, school physical therapist note, medication list, previous ER visits and all imaging studies reviewed. Pt given LR 1L bolus x 1. BNP 593 , troponin normal, glu 128, cr 1.44 bun 21. Patient given fluids here and feels much better on reexamination. Sodium 131 BUN 21 creatinine 1.44 glucose [address] BNP [address]. Troponin normal. CT head showed old right frontal infarct. Chest x-ray showed no acute process. Patient will be discharged home on Paxlovid and to keep hydrated. Differential diagnosis Discharge Plan Departure Patient Disposition: Home Clinical Impression: COVID, Syncope, vasovagal Instructions: DI for COVID-19 (Suspected or Confirmed ) Activity Restrictions/Additional Instructions: Return with new or worsening symptoms. Keep hydrated. Take medicines directed. Prescriptions: New Paxlovid 150 mg (10)- 100 mg (10) tablets,dose pack See Rx Instructions .ROUTE .COMPLEX Qty: 20 0RF Rx Instructions: orally per package directions No Action omeprazole 20 mg capsule,delayed release(DR/EC) 20 mg PO DAILY Qty: 90 3RF amlodipine 5 mg tablet 5 mg PO BID Qty: 180 1RF levothyroxine 25 mcg tablet 12.5 mcg PO DAILY Qty: 45 0RF (DME) Hospital bed See Rx Instructions .Route .MEDSUPPLY Qty: 1 0RF Rx Instructions: Use hospital bed as needed during recovery. fluticasone propionate 50 mcg/actuation spray,suspension 2 spray intranasal BID PRN (Reason: allergy symptoms) Qty: 16 3RF Rx Instructions: administer into each nostril lisinopril 40 mg tablet 40 mg PO DAILY Qty: 60 6RF (DME) Diabled Parking Permit See Rx Instructions .Route .MEDSUPPLY Qty: 1 0RF Rx Instructions: Valid for 5 years hydrochlorothiazide 25 mg tablet 25 mg PO DAILY Qty: 60 3RF fenofibrate 54 mg tablet 54 mg PO DAILY propranolol 10 mg tablet 5 mg PO BEDTIME gabapentin 100 mg tablet 100 - 300 mg PO BEDTIME Qty: 20 0RF oxycodone-acetaminophen 5-325 mg tablet 1 tab PO Q6H PRN (Reason: pain) Qty: 10 0RF (DME) ResMed AirSense 10 CPAP Qty: 1 Dose Instruction: As directed Patient Comments: Pressure: 11-18 cmH2O DME: [facility] Rx Instructions: As directed Referrals: Xenia Moore DO [Primary Care Provider, Family Practice] Stand Alone Forms: Patient Portal/API
--- NOTE | 2024-10-20 14:04 | DI.CT.S_ITS ---
PROCEDURE: CT HEAD/BRAIN WO CON INDICATIONS: syncope TECHNIQUE: Noncontrast 4.5 mm thick angled axial sections acquired from the foramen magnum to the vertex, with coronal and sagittal reformats. For radiation dose reduction, the following was used: automated exposure control, adjustment of mA and/or kV according to patient size. COMPARISON: [facility], CT, CT HEAD/BRAIN WO CON, 11/20/2022, 12:26. FINDINGS: Image quality: Diagnostic. CSF spaces: Basal cisterns are patent. No extra-axial fluid collections. Ventricles are normal in size and shape. 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 Underlying atrophy and chronic ischemic change. No acute hemorrhage or mass effect Skull and face: Calvarium and visualized facial bones are intact, without suspicious lesions. Sinuses: Visualized sinuses and mastoids are clear. IMPRESSION: Old right frontal infarct. No acute hemorrhage or mass effect. Approved by: Yasmani Tilley M.D. on 10/20/2024 at 13:48
--- NOTE | 2024-10-20 14:04 | DI.CT.S_ITS ---
PROCEDURE: CT ANGIO HEAD AND NECK INDICATIONS: ams TECHNIQUE: After the administration of intravenous contrast, 1 mm thick sections acquired from the aortic arch through the [place] of [place]. MIP reformats of the arterial vasculature were utilized. For radiation dose reduction, the following was used: automated exposure control, adjustment of mA and/or kV according to patient size. COMPARISON: None. FINDINGS: Image quality: Diagnostic. Cerebral CT Angiogram: Internal carotid arteries: No acute findings. Intracranial ICA are patent with no significant stenosis. No occlusion. No aneurysm. Anterior cerebral arteries: Unremarkable. No significant stenosis. No occlusion. No aneurysm. Middle cerebral arteries: Unremarkable. No significant stenosis. No occlusion. No aneurysm. Posterior cerebral arteries: Unremarkable. No significant stenosis. No occlusion. No aneurysm. Basilar artery: Unremarkable. No significant stenosis. No occlusion. No aneurysm. Vertebral arteries: Unremarkable as visualized. Dural venous sinuses: Unremarkable given phase of enhancement. Other: Arterial phase appearance of the brain parenchyma is unremarkable. Neck CT Angiogram: Internal carotid arteries: Unremarkable. No significant stenosis. No dissection or occlusion. Common carotid arteries: Unremarkable. No significant stenosis. No dissection or occlusion. External carotid arteries: Unremarkable. No occlusion. Vertebral arteries: Unremarkable. No significant stenosis. No dissection or occlusion. Aortic Arch and Mediastinum: Partially visualized aortic arch unremarkable without evidence of aneurysm. Origins of the great vessels unremarkable. Other: Arterial phase soft tissues of the neck and chest are unremarkable. IMPRESSION: No significant intracranial arterial abnormality is seen. No significant abnormality is seen within the arteries of the neck. Any quantitative measurements of stenosis were performed using NASCET criteria. Approved by: Yasmani Tilley M.D. on 10/20/2024 at 13:54
[2024-10-20 14:07] LABS: INR 1.1 (0.9-1.3); Prothrombin Time 12.0 SECONDS (9.4-12.5)
[2024-10-20 14:10] LABS: PTT Partial Thromboplastin Tim 26 SECONDS (25.1-36.5)
[2024-10-20 14:12] LABS: Alanine Aminotransferase 15 IU/L (<35); Albumin 4.6 g/dL (3.5-5.0); Albumin Globulin Ratio 1.2 (1.0-2.8); Alkaline Phosphatase 61 U/L (38-126); Blood Urea Nitrogen 21 mg/dL (7-17); Calcium 9.5 mg/dL (8.4-10.2); Carbon Dioxide 23 mmol/L (22-32); Chloride 97 mmol/L (98-107); Creatine Kinase 38 U/L (30-135); Estimated Glomerular Filt Rate 36 mL/min (>60); Globulin 3.8 g/dL (1.7-4.1); Glucose 128 mg/dL (70-99); HEMOLYSIS < 15 (0-50); Lipase 97 U/L (23-300); Magnesium 1.9 mg/dL (1.6-2.3); Potassium 4.0 mmol/L (3.4-5.1); Sodium 131 mmol/L (137-145); Total Protein 8.4 g/dL (6.3-8.2)
[2024-10-20 14:23] LABS: NT-proBNP (BNP-Adult 18+) 593 pg/mL (<450); Troponin I < 0.012 ng/mL (0.01-0.034)
[2024-10-20 15:34] LABS: Influenza A - CEPHEID Flu A NEGATIVE (NEGATIVE); Influenza B - CEPHEID Flu B NEGATIVE (NEGATIVE)
[2024-10-20 15:35] LABS: COVID-19 CEPHEID 4-PLEX PCR POSITIVE (Negative)
[2024-10-20] MEDS: LACTATED RINGERS 1,000 ML 1000 ML IV (15:46)
[2024-10-20 16:22] LABS: Troponin I < 0.012 ng/mL (0.01-0.034)
== END 2024-10-20 17:10 | disposition home or self-care (01) ==
PROVIDERS: Emergency Provider Family Medicine; PCP Family Medicine
DX: U07.1 COVID-19 (principal); R55 Syncope and collapse; R07.9 Chest pain, unspecified
CPT/HCPCS: 36415; 70450; 70496; 70498; 71045; 80053; 82550; 83690; 83735; 83880; 84484; 85025; 85610; 85730; 87637; 93005; 99284

== ENCOUNTER → 2024-12-25 15:52 | Outpatient (CLI) | payer OTHER, SELFPAY ==
[2024-03-06 13:55] VITALS: BMI 32.1
[2024-12-25 16:35] LABS: Hematocrit 35.1 % (36-46); Hemoglobin 12.1 g/dL (12.0-16.0)
[2024-12-25 20:20] LABS: Protein (Total) Urine Random 15 mg/dL (0-12); Protein Creatinine Ratio Urine 0.70 GRAM/24H
[2024-12-25 20:22] LABS: Blood Urea Nitrogen 25 mg/dL (7-17); Calcium 10.6 mg/dL (8.4-10.2); Carbon Dioxide 25 mmol/L (22-32); Chloride 95 mmol/L (98-107); Estimated Glomerular Filt Rate 44 mL/min (>60); Glucose 126 mg/dL (70-99); HEMOLYSIS < 15 (0-50); Potassium 4.4 mmol/L (3.4-5.1); Sodium 132 mmol/L (137-145)
== END ==
PROVIDERS: PCP Family Medicine; Referring Provider Student in an Organized Health Care Education/Training Program; Visit Provider Student in an Organized Health Care Education/Training Program
DX: N05.9 Unspecified nephritic syndrome with unspecified morphologic changes (principal); D63.1 Anemia in chronic kidney disease; R80.9 Proteinuria, unspecified
CPT/HCPCS: 36415; 80048; 82570; 84156; 85014; 85018

== ENCOUNTER → 2025-01-10 14:20 | Outpatient (CLI) | payer OTHER, SELFPAY ==
[2024-03-06 13:55] VITALS: BMI 32.1
[2025-01-10 15:10] LABS: Bilirubin Urine UA NEGATIVE (NEGATIVE); Color Urine UA YELLOW; Glucose Urine UA NEGATIVE (Negative); Ketones Urine UA NEGATIVE (NEGATIVE); Leukocyte Esterase Urine UA 2+ (NEGATIVE); Nitrite Urine UA NEGATIVE (Negative); Occult Blood Urine UA TRACE-INTACT (Negative); Protein Urine UA TRACE (Negative); Specific Gravity Urine UA 1.010 (1.000-1.035); Urobilinogen Urine UA 0.2 E.U./dL (0.2)
[2025-01-10 15:18] LABS: Appearance Urine UA CLOUDY; pH Urine UA 7.0 (4.5-8.0)
[2025-01-10 15:20] LABS: Culture Indicated Urine Specimen Cultured
== END ==
PROVIDERS: PCP Family Medicine; Referring Provider Family Medicine; Visit Provider Family Medicine
DX: R39.9 Unspecified symptoms and signs involving the genitourinary system (principal)
CPT/HCPCS: 81001; 87077; 87086; 87186

== ENCOUNTER → 2025-01-29 11:18 | Outpatient (CLI) | payer OTHER, SELFPAY ==
[2024-03-06 13:55] VITALS: BMI 32.1
[2025-01-29 12:43] LABS: Hematocrit 34.2 % (36-46); Hemoglobin 11.5 g/dL (12.0-16.0)
[2025-01-29 13:18] LABS: Blood Urea Nitrogen 20 mg/dL (7-17); Calcium 10.1 mg/dL (8.4-10.2); Carbon Dioxide 22 mmol/L (22-32); Chloride 106 mmol/L (98-107); Estimated Glomerular Filt Rate 48 mL/min (>60); Glucose 92 mg/dL (70-99); HEMOLYSIS < 15 (0-50); Phosphorous 3.8 mg/dL (2.8-4.1); Potassium 4.5 mmol/L (3.4-5.1); Sodium 139 mmol/L (137-145)
[2025-01-29 14:37] LABS: Appearance Urine UA CLOUDY; Bilirubin Urine UA NEGATIVE (NEGATIVE); Color Urine UA YELLOW; Glucose Urine UA NEGATIVE (Negative); Ketones Urine UA NEGATIVE (NEGATIVE); Leukocyte Esterase Urine UA 3+ (NEGATIVE); Nitrite Urine UA NEGATIVE (Negative); Occult Blood Urine UA 1+ (Negative); Protein Urine UA TRACE (Negative); Specific Gravity Urine UA <=1.005 (1.000-1.035); Urobilinogen Urine UA 0.2 E.U./dL (0.2)
[2025-01-29 14:38] LABS: pH Urine UA 5.5 (4.5-8.0)
[2025-01-29 14:39] LABS: Culture Indicated Urine Specimen Cultured
[2025-01-29 14:49] LABS: Protein (Total) Urine Random 61 mg/dL (0-12); Protein Creatinine Ratio Urine 1.47 GRAM/24H
== END ==
PROVIDERS: PCP Family Medicine; Referring Provider Family Medicine; Visit Provider Student in an Organized Health Care Education/Training Program
DX: D47.2 Monoclonal gammopathy (principal); D63.1 Anemia in chronic kidney disease; D70.9 Neutropenia, unspecified; E83.30 Disorder of phosphorus metabolism, unspecified; N05.9 Unspecified nephritic syndrome with unspecified morphologic changes; N25.81 Secondary hyperparathyroidism of renal origin; R80.9 Proteinuria, unspecified; R35.0 Frequency of micturition; R39.89 Other symptoms and signs involving the genitourinary system
CPT/HCPCS: 80048; 81001; 82570; 83970; 84100; 84156; 84166; 85014; 85018; 86335; 87086